=== PATIENT | female | born 1950 | race Caucasian/White ===

== ENCOUNTER 2023-09-01 15:39 | Inpatient (IN) | payer OTHER, SELFPAY ==
[2023-09-01] VITALS (18 sets, daily range): BP systolic 85–138; BP diastolic 52–70; PULSE 61–62; BMI 22.1; BMI 22.8
--- NOTE | 2023-09-01 12:27 | ED.GENMED ---
History of Present Illness
General
Chief Complaint: Breathing Problem
Source: patient and spouse
Exam Limitations: none
Time Seen by Provider: 09/01/23 12:26
Travel History
Have you had any contact with someone who has COVID-19?: No
Do you have any symptoms of coronavirus? Fever > 100 degrees, chills, cough, shortness of breath, sore throat, loss of taste or smell, muscle aches, or headache?: Yes
Symptoms:: sob
History of Present Illness
History of Present Illness:
73-year-old female shortness of breath with exertion for about a month and a half. Started in [place]. She had stopped her Lasix during the drive down restarted in [place]. Has had shortness of breath with exertion since then. Slowly progressive
in nature. No weight change no chest pain no pleuritic pain no infectious symptoms or cough. 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
Past History
Past History
ED Past Medical History: Arrthythmia, GERD and Other (anemia)
ED Past Surgical History: Appendectomy and Cardiac
Social History
Tobacco: Non-smoker
Alcohol: Daily
Personal: Single
Living: with family
Employment: Employed
Review of Systems
Review of Systems
All Other Systems: Not applicable
Constitutional: Denies fever
Respiratory: Denies cough or hemoptysis
Cardiac: Denies chest pain or syncope
Phy Exam
Physical Exam
Physical Exam:
GENERAL: Alert and oriented in no apparent distress
EYE: Orbits normal.
NECK: Supple, no thyroid palpable
CARDIAC: Regular rate and rhythm without any obvious murmurs. Pacemaker upper chest wall
LUNGS: Clear breath sounds,normal
ABDOMEN: Soft, without focal tenderness or distention
NEUROLOGICAL: Alert and oriented , grossly non-focal
SKIN: Warm and dry, no rash or lesion, no discoloration, skin intact.
MUSCULOSKELETAL: Trace pitting edema,no deformity.Good color
PSYCH: Normal and appropriate interaction.
Scores
Heart Failure Risk
Heart Failure Risk Score: Not Applicable
Course
Orders/Labs/Results
Orders:
Orders
09/01/23 Breakfast
Clear Liquid
At Your Request: Full Participation
09/01/23 11:07
Electrocardiogram (*1) Urgent
Reason for Study: Shortness of Breath
09/01/23 11:08
EKG- Treatment ONCE
09/01/23 12:38
CXR2 [CR Chest - 2 Views ] Urgent
Comment:
Reason For Exam: sob
09/01/23 12:43
Complete Blood Count/With Diff Urgent
Comprehensive Metabolic Panel Urgent
DDimer [D-Dimer] Urgent
Ferritin Urgent
Folate Urgent
Comment: IRON,FERRITIN,TIBC,B12,FOLATE ADDED ON BY FLOOR 3:10PM 09-01-23
Iron Urgent
NT-proBNP Urgent
Total Iron Binding Urgent
Troponin I Urgent
Vitamin B12 Urgent
09/01/23 13:35
* Blood Bank Products Urgent
Blood Bank Products: *Packed RBC Leuko(PRBC's)
Quantity: 1
Transfuse Today: Yes
Reason: Anemia
IV Insert/Care/Rem.- Treatment PRN
09/01/23 13:42
Potassium Chloride 10% Elixir [KCl Elixir] 40 meq PO NOW STA
09/01/23 14:00
Type+Screen Urgent
09/01/23 15:12
Add On- LAB Routine
Tests Added?: iron,ferritin,tibc, b12 and folate level
09/01/23 15:27
Admit/Transfer Patient As Directed
Co-Sign Provider:
Level of Care: Inpatient admission
Assign to:: Telemetry
Physician / Group: charles
Diagnosis: GI bleed
Reason for Telemetry: Other
Other Reason for Telemetry: anemia
Date to Stop Telemetry: 09/03/23
Time to Stop Telemetry: 11:00
Reason for Hospitalization: anemia
Expected length of stay greater than two midnights?: Yes
ELOS- Estimated Length of Stay in days: 3
I certify the patient meets the requirements for IP care: Yes
09/01/23 15:28
Code Status As Directed
Resuscitation Status: Full Code
09/01/23 17:19
GASTROINTESTINAL CONSULT Routine
Consulting Provider: Alina Mayes
Was physician already notified: Yes
Activity As Directed
Activity Level: As Tolerated
Compression Sleeves [Pneumatic Compression Sleeves] As Directed
Type: Thigh high
I&O [Intake/ Output] As Directed
Frequency: Per unit guidelines
INT (Intravenous Needle Therapy) As Directed
Comment: Place 2 IV catheters of the largest bore possible until stable
Orthostatic Vital Signs As Directed
Orthostatic VS Frequency: Now
Comment: then every four hours for twenty-four hours
Vital Signs As Directed
Frequency: Per unit guidelines
Weight As Directed
Frequency: Daily
DX Deep Vein Thrombosis Video Routine
09/01/23 17:51
Diphenhydramine [Benadryl] 25 mg PO HSPRN PRN
09/01/23 20:00
H&H Q8H
Pantoprazole [Protonix IV] 40 mg IV BID
09/01/23 22:00
Atorvastatin [Lipitor] 20 mg PO HS
Melatonin 10 mg PO HS
Metoprolol Xl [Toprol Xl] 50 mg PO HS
Potassium Chloride [KCl] 10 meq PO HS
09/02/23 04:00
H&H Q8H
09/02/23 06:00
Basic Metabolic Panel IN AM
Complete Blood Count/No Diff IN AM
09/02/23 08:00
Furosemide [Lasix] 160 mg PO DAILY
Metoprolol Xl [Toprol Xl] 75 mg PO DAILY
Potassium Chloride [KCl] 20 meq PO DAILY
Sotalol [Betapace] 120 mg PO Q24H
09/03/23 06:00
Basic Metabolic Panel IN AM
Complete Blood Count/No Diff IN AM
09/03/23 11:00
DC Protocol for Telemetry ONCE
09/04/23 06:00
Basic Metabolic Panel IN AM
Complete Blood Count/No Diff IN AM
09/05/23 06:00
Basic Metabolic Panel IN AM
Complete Blood Count/No Diff IN AM
09/06/23 06:00
Basic Metabolic Panel IN AM
Complete Blood Count/No Diff IN AM
Abnormal Lab Results
09/01/23 09/01/23
12:43 14:00
RBC 2.39 L 10^6/uL
(4.20-5.40)
Hgb 6.2 L* g/dL
(12.0-16.0)
Hct 19.9 L* %
(37.0-47.0)
MCH 25.9 L pg
(27.0-31.0)
MCHC 31.2 L g/dL
(33.0-37.0)
Absolute Monos (auto) 0.8 H 10^3/uL
(0.1-0.6)
Lymphocytes % 14.5 L %
(20.5-51.1)
Monocytes % 10.3 H %
(1.7-9.3)
Potassium 3.1 L mmol/L
(3.5-5.1)
Chloride 96 L mmol/L
(98-107)
Carbon Dioxide 31 H mmol/L
(22-30)
BUN 19 H mg/dl
(7-17)
Iron 35 L ug/dl
(37-170)
% Saturation 7 L %
(20-50)
Ferritin 9.4 L ng/ml
(11.1-264.0)
Crossmatch IS Only See Detail
09/01/23 12:43
09/01/23 12:43
Vital Signs
Initial and Last Documented VS:
Initial Vital Signs
Temp Pulse Resp BP Pulse Ox
98.2 F 64 16 117/58 90
09/01/23 11:02 09/01/23 11:02 09/01/23 11:02 09/01/23 11:02 09/01/23 11:02
Last Documented Vital Signs
Temp Pulse Resp BP Pulse Ox
97.8 F 62 16 125/55 99
09/01/23 18:34 09/01/23 18:34 09/01/23 18:34 09/01/23 18:34 09/01/23 18:32
MDM/Problems Addressed
MDM/Problems Addressed:
Large differential dyspnea on exertion. CHF. Although lungs are clear and weight has been stable. Patient increased her Lasix dose 3 to 4 days ago. Pulmonary emboli although patient is on Eliquis and faithful which makes this unlikely. Anginal
equivalent always possible. Underlying lung issue possible also. No infectious symptoms however. Workup in progress
*Radiology
Radiology exam reviewed: preliminary read by ED provider (Negative) and radiology read reviewed (Negative)
*Pulse Oximetry
Patient hypoxic: no
*EKG
Interpreted by ED Provider?: Yes
Interpretation: abnormal
Comparison EKG: no changes
Heart Rate: 60
Rate: normal
Rhythm: other (AV dual pacing)
*Counter Tender Interpretation
Rate: normal
Interpretation: normal
Heart Rate: 62
Rhythm: other (AV sequential)
*Critical Care Note
Total Time (30-74mins, 75-104mins- exclusive of procedures): Not Applicable
Data Reviewed
Review of Other/Old Records Reveals: Labs, Records, Radiology Studies and Testing
Update Note
Update Note:
Patient's rectal exam is brown but has trace positive. Severe symptomatic anemia. Consent signed. Risks benefits of blood explained. Referred to hospitalist.
ED Attending Note
-
Portions of this chart may have been created with voice recognition software.� Occasional wrong word or��sound alike� substitutions may have occurred due to the inherent limitations of voice recognition software.
Discharge Plan
Departure
Patient Disposition: Admit
Date of Disposition: 09/01/23
Time of Disposition: 13:37
Presentation/result/management discussed w/ accepting MD/DO: Hospitalist
Discharge Problem:
Severe symptomatic anemia, Occult GI bleed he, Hypokalemia
Interventions
Interventions:
*Risk Screen - Suicide Last Done: 09/01/23 12:16
*General Assessment Last Done: 09/01/23 12:16
*Neglect/Abuse Screening Last Done: 09/01/23 12:16
ED- Fall Risk Assessment Last Done: 09/01/23 12:16
*ED COVID-19 Vaccine History Last Done: 09/01/23 11:02
*Nursing Disposition Last Done: 09/01/23 17:30
ED- Cardiac Assessment Last Done: 09/01/23 12:16
ED- Pulmonary Assessment Last Done: 09/01/23 12:16
Discharge Date and Time
Discharge Date/Time: 09/01/23 17:31
[2023-09-01 12:59] LABS: % Basophils 0.7 % (0-2); % Eosinophils 2.1 % (0-6); % Immature Granulocytes 0.4 % (0-0.5); % Lymphocytes 14.5 % (20.5-51.1); % Monocytes 10.3 % (1.7-9.3); Absolute Basophils 0.1 10^3/uL (0-0.2); Absolute Eosinophils 0.2 10^3/uL (0-0.7); Absolute Lymphocytes 1.2 10^3/uL (1.2-3.4); Absolute Monocytes 0.8 10^3/uL (0.1-0.6); Absolute Neutrophils 5.8 10^3/uL (1.4-6.5); Mean Corp Hgb Conc. 31.2 g/dL (33.0-37.0); Mean Corpuscular Hgb 25.9 pg (27.0-31.0); Mean Corpuscular Volume 83.3 fL (81.0-99.0); Mean Platelet Volume 9.4 fL (7.4-10.4); Nucleated Red Blood Cells % 0 %; Platelet Count 257 10^3/uL (130-400); Red Blood Cell Count 2.39 10^6/uL (4.20-5.40); Red Cell Dist. Width 13.8 % (11.5-14.5); White Blood Cell Count 8.1 10^3/uL (4.8-10.8)
[2023-09-01 13:06] LABS: Hematocrit 19.9 % (37.0-47.0); Hemoglobin 6.2 g/dL (12.0-16.0)
[2023-09-01 13:15] LABS: ALT (SGPT) 15 U/L (0-35); AST (SGOT) 26 U/L (14-36); Alkaline Phosphatase 79 U/L (38-126); Blood Urea Nitrogen 19 mg/dl (7-17); Calcium 9.4 mg/dl (8.4-10.2); Carbon Dioxide 31 mmol/L (22-30); Chloride 96 mmol/L (98-107); Estimated Creatinine Clearance 50 ml/min; Glucose 92 mg/dl (70-99); Potassium 3.1 mmol/L (3.5-5.1); Sodium 137 mmol/L (135-145); Total Bilirubin 0.5 mg/dl (0.2-1.3); Total Protein 6.9 g/dl (6.3-8.2); eGFR > 60.00
[2023-09-01 13:19] LABS: D-Dimer < 0.27 ug/mlFEU (0.00-0.50)
[2023-09-01 13:25] LABS: NT-proBNP 2510 pg/ml; Troponin I < 0.012 ng/ml
[2023-09-01] MEDS: KCL ELIXIR 40 MEQ PO (13:58)
--- NOTE | 2023-09-01 14:45 | HPS.HSE ---
Family Physician
-
Family Physician: Luly Mckeon
Chief Complaint
-
sob
History of Present Illness
73-year-old female with PMH for CHF, sick sinus syndrome, paroxysmal A-fib, iron deficiency anemia, hyperlipidemia, asthma, COPD presented to us with progressively short of breath for the past few months. Patient stopped taking Lasix few days last
week as she was traveling to [place]. For the past 1 week, her short of breath got worse. She reports worse with activity. Patient denies any chest pain. Denies weight gain. Denied lower extremity edema. Patient denies any runny nose,
congestion, cough. Patient denies any headache, dizziness, syncopal episode patient denies any abdominal pain, nausea, vomiting, diarrhea. . Patient denies any hematemesis, black stool or bloody stool. Denies dysuria, hematuria. Patient had
colonoscopy and EGD within the last year. Patient could not get an appointment with shuttle hand but recommended taking 160 of Lasix instead of 120.
Noted hemoglobin of 6.2. Admitting for further management
Medical History
Past Medical History
Past Medical History: Reports Other
Additional Past Medical History:
Pulmonary hypertension
Sick sinus syndrome
Chronic diastolic heart failure
Paroxysmal A-fib
Iron deficiency anemia
Hyperlipidemia
COPD asthma
History of melanoma
Past Surgical History: Reports Other
Additional Past Surgical History:
Mohs surgery on forehead
Hiatal hernia surgery
Appendectomy
Social History
Tobacco: Non-smoker
Alcohol: Daily (1 glass of wine daily)
Drug: None
Personal:
Living: With Family
Family History
Family History: Not pertinent
Allergies / Home Medications
Allergies reflects when Allergies were last updated in [facility].
Home Medications with original date entered in [facility]
Allergy/Medication List:
Allergies
Allergy/AdvReac Type Severity Reaction Status Date / Time
naproxen [Naproxen] Allergy 'heart Verified 03/18/16 07:55
beats
faster'
NSAIDS (Non-Steroidal Allergy Unknown Verified 03/18/16 07:55
Anti-Inflamma
Home Medications
pantoprazole 40 mg tablet,delayed release 40 mg PO DAILY Gastrointestinal issue 02/24/11
cod liver oil 1 cap PO DAILY PRN supplement 06/12/12
atorvastatin 20 mg tablet 20 mg PO HS High cholesterol 10/09/14
sotalol 120 mg tablet 120 mg PO Q12H arrhythmia #60 tabs 02/23/22
Benefiber (guar gum) 2 cap PO BID 09/01/23
apixaban 5 mg tablet (Eliquis) 5 mg PO BID 09/01/23
ascorbic acid (vitamin C) 500 mg chewable tablet (Vitamin C) 500 mg PO DAILY PRN supplement 09/01/23
diphenhydramine 25 mg-acetaminophen 500 mg tablet (Tylenol PM Extra Strength) 1 tab PO HS PRN sleep 09/01/23
furosemide 80 mg tablet 160 mg PO DAILY 09/01/23
melatonin 10 mg chewable tablet 10 mg PO HS 09/01/23
metoprolol succinate 50 mg tablet,extended release 24 hr 50 mg PO HS 09/01/23
metoprolol succinate 50 mg tablet,extended release 24 hr 75 mg PO DAILY 09/01/23
potassium chloride 20 mEq tablet,extended release(part/cryst) 10 meq PO HS 09/01/23
potassium chloride 20 mEq tablet,extended release(part/cryst) 20 meq PO DAILY 09/01/23
vitamin E (dl, acetate) 180 mg (400 unit) capsule 180 mg PO DAILY PRN supplement 09/01/23
Review of Systems
-
Constitutional: Reports No Symptoms
EENT: Reports No Symptoms
Respiratory: Reports Trouble Breathing
Cardiac: Reports No Symptoms
Abdomen/GI: Reports No Symptoms
: Reports No Symptoms
Musculoskeletal: Reports No Symptoms
Skin: Reports No Symptoms
Neurological: Reports No Symptoms
Endocrine: Reports No Symptoms
Hematologic/Lymphatic: Reports No Symptoms
Psych: Reports No Symptoms
Physical Exam
Vital Signs
Vital Signs
Temp Pulse Resp BP Pulse Ox
98.2 F 61 15 137/66 98
09/01/23 11:02 09/01/23 14:30 09/01/23 14:30 09/01/23 14:00 09/01/23 14:30
Physical Exam
General: Well Developed, Well Nourished and No Apparent Distress
HEENT: NormoCephalic, Moist mucous membranes and Atraumatic
Respiratory: Clear
Cardiac: S1/S2 and Regular Rhythm; No Murmur or Rub
GI: Soft, Non Tender, Non Distended and Normal Bowel Sounds; No Organomegaly
Rectal: Deferred by Provider
Musculoskeletal: No Clubbing, No Cyanosis and No Edema
Skin: No Rash
Neuro: AO x 3 and Nonfocal/grossly intact
Psych: Calm
Laboratory Results
-
09/01/23 12:43
09/01/23 12:43
Laboratory Results
Total Bilirubin 0.5 mg/dl (0.2-1.3) 09/01/23 12:43
AST 26 U/L (14-36) 09/01/23 12:43
ALT 15 U/L (0-35) 09/01/23 12:43
Alkaline Phosphatase 79 U/L (38-126) 09/01/23 12:43
Troponin I < 0.012 ng/ml 09/01/23 12:43
Data Reviewed
-
Diagnostic Radiology: Report Reviewed by me
Lab Data: Labs Reviewed by me
Impression/Plan
-
# Short of breath likely from acute blood loss anemia from GI bleed
-Hemoglobin 6.2
-In ER rectal exam is brown but has trace positive
-ordered one unit of blood
-Trend hemoglobin
-Clear liquid diet
-GI consult
# Hypokalemia likely from diuretics
-K3.1
-IV KCl in ER
-Continue to monitor BMP
# History of paroxysmal A-fib
-EKG with impression of paced rhythm
-Hold Eliquis
-Metoprolol continued
-Sotalol continued
# Hyperlipidemia
-Statin continued
# History of congestive heart failure
-Will continue Lasix 160
-Strict KIEL
-Daily weight
# DVT prophylaxis
-SCDs
# CODE STATUS
-Full code
--- NOTE | 2023-09-01 15:13 | W.PN.UPDATE ---
Update Note
Progress Note Update
I saw and examined the patient.
The BUFFING AND POLISHING WHEEL REPAIRER's note was reviewed and I agree with the note.
This note serves as an addendum to [facility] H&P
73 yo female on Eliquis presenting with shortness of breath. Patient recently stopped taking Lasix while driving to [place]. Patient Cardiology and upon return back to [place] her Lasix dose was increased to 60 mg. Patient denies hematuria or
blood in stool.
General no acute distress, pale
Cardiac S1-S2 regular rate rhythm
Pulmonary lungs are clear to auscultation bilaterally
Abdomen positive bowel sounds soft nontender
Extremities no edema
Comment:
#Symptomatic anemia likely secondary suspected GI bleed (upper versus lower) possibly worsening due to Eliquis
#History of GI bleed
GERD Status post laparoscopic paraesophageal hernia repair with Mary fundoplication
In ER rectal exam Brown stool trace positive
PPI twice daily
Clears
Start gentle IV fluids after blood cell transfusion
Trend H&H
2 large-bore IVs at all time
Check anemia panel
Gastroenterology evaluation
#Hypokalemia
Replete/monitor
#Paroxysmal atrial fibrillation status post PVI
#Sick sinus syndrome status post pacemaker implantation
Holding Eliquis
Continue with metoprolol and sotalol
Monitor on telemetry
#History of stroke
Currently on Eliquis which needs to be held in the setting of symptomatic anemia and concern for gastrointestinal bleeding
#Moderate pulmonary hypertension
Monitor oxygenation status closely
Continue with diuretics if blood pressure can tolerate it
HLD
Holding statin
DVT prophylaxis SCDs in the setting of GI bleed
Discussed case with patient's spouse and brother at bedside in detail
I spent a total of 78 minutes with the patient or on the floor. More than 50% of this time involved counseling and coordination of care.
[2023-09-01 15:54] LABS: Iron 35 ug/dl (37-170)
[2023-09-01 16:04] LABS: Percent Saturation 7 % (20-50); Total Iron Binding Capacity 481 ug/dl (265-497)
--- NOTE | 2023-09-01 16:11 | CON.GI ---
Addendum entered and electronically signed by Alina Mayes MD 09/01/23 18:30:
I saw and examined the patient.
The DECK ENGINEER or PA's note was reviewed and I agree with the note.
Comment:
Pt is a 73 y/o with afib on eliquis, hiatal hernia with PUD and fundoplication admitted with SOB and anemia which is iron def. No overt bleeding
abd: soft, nontender
impression:
iron def anemia
hx of PUD/fundoplication
plan:
transfuse
EGD and colonoscopy when stable. will need to be off eliquis for this.
Can be done as an outpatient or inpatient if overt bleeding or hgb does not appropriately bump
follow hgb
PPI
Original Note:
Consultation
-
Date/Time Consultation Requested: 09/01/23 1527
Date/Time Consultation Performed: 09/01/23 1620
Requesting Provider: ADRIAN Pedraza
Performing Provider: Dr. Alina Mayes / Shilpa Sanz PA-C
Reason for Consultation: anemia
Medical History
Chief Complaint / HPI
Chief Complaint: anemia
History of Present Illness:
This is a 73 year old female with a past medical history of CHF, sick sinus syndrome (s/p pacemaker 2015), paroxysmal A-fib (on Eliquis), CVA (2012, no residual deficits), iron deficiency anemia, hyperlipidemia, COPD, pulmonary HTN, GERD, PUD,
history of recurrent GI bleeding for multiple years due to Roger lesions/large hiatal hernia on chronic anticoagulation who underwent paraesophageal hernia repair with Mary fundoplication with Dr. Venegas in 2012. She is well-known to our GI
practice and is currently followed by Dr. Cici Escamilla. She had been on Coumadin for years but was switched to Eliquis in June 2023. She noticed increasing dyspnea over the past few months. She presented to the ER with a hemoglobin of 6.2. Her
baseline hemoglobin had previously been in the 12's in 2021 on review of labs. Prior endoscopies, colonoscopies reviewed going back to 2007 with prior nonhealing gastric ulcer, hiatal hernia and Roger lesions as well as colon polyps (sessile
serrated), colonic angioectasias in the ascending colon and hemorrhoids. Her most recent endoscopy in March [address] Escamilla showed multiple gastric antral erosions with evidence of loose Mary fundoplication. Biopsies showed mild gastritis,
negative for H pylori. Her PPI dose was increased to pantoprazole 40mg (from 20mg) and patient is compliant with taking it regularly. She is overdue for surveillance colonoscopy as her last was done in 2018. She denies melena or hematochezia. She
states bowel movements are regular, no diarrhea or constipation. She denies a family history of colon cancer or any GI malignancies. She does not smoke and avoids NSAIDs but does admit to drinking 2-4 glasses of wine every night and has done so for
years. Heartburn, reflux are well-controlled on PPI therapy. No unintentional weight loss. Labs reviewed: WBC 8.1, Hgb 6.2, MCV 83.3, platelets 257, PT 22.8, INR 2.04, serum iron 35, TIBC 481, %sat 7, ferritin 9.4. Vitamin B12 and folate are
pending.
Past Medical History
Past Medical History: Other (CHF, sick sinus syndrome (s/p pacemaker 2015), paroxysmal A-fib (on Eliquis), CVA (2012, no residual deficits), iron deficiency anemia, hyperlipidemia, COPD, pulmonary HTN, GERD, PUD, history of recurrent GI bleeding)
Past Surgical History: Appendectomy and Other (Moh's, pacemaker 08/04/2015 done for syncope, ablation for atrial fibrillation, Tonsillectomy, [place], Laparoscopic Mary fundoplication hiatal hernia repair 2012 - Dr. Venegas)
Social History
Tobacco: Non-Smoker
Alcohol: Daily (2-4 glasses of wine daily)
Drug: None
Personal:
Living: With Family
Family History
Family History: Other (No family history of GI malignancies)
Allergies / Home Medications
Allergy/AdvReac Type Severity Reaction Status Date / Time
naproxen [Naproxen] Allergy 'heart Verified 03/18/16 07:55
beats
faster'
NSAIDS (Non-Steroidal Allergy Unknown Verified 03/18/16 07:55
Anti-Inflamma
�Medication �Instructions �Recorded
pantoprazole 40 mg tablet,delayed 40 mg PO DAILY Gastrointestinal 02/24/11
release issue
cod liver oil 1 cap PO DAILY PRN supplement 06/12/12
atorvastatin 20 mg tablet 20 mg PO HS High cholesterol 10/09/14
sotalol 120 mg tablet 120 mg PO Q12H arrhythmia #60 tabs 02/23/22
Benefiber (guar gum) 2 cap PO BID 09/01/23
apixaban 5 mg tablet (Eliquis) 5 mg PO BID 09/01/23
ascorbic acid (vitamin C) 500 mg 500 mg PO DAILY PRN supplement 09/01/23
chewable tablet (Vitamin C)
diphenhydramine 25 1 tab PO HS PRN sleep 09/01/23
mg-acetaminophen 500 mg tablet
(Tylenol PM Extra Strength)
furosemide 80 mg tablet 160 mg PO DAILY 09/01/23
melatonin 10 mg chewable tablet 10 mg PO HS 09/01/23
metoprolol succinate 50 mg 50 mg PO HS 09/01/23
tablet,extended release 24 hr
metoprolol succinate 50 mg 75 mg PO DAILY 09/01/23
tablet,extended release 24 hr
potassium chloride 20 mEq 10 meq PO HS 09/01/23
tablet,extended release(part/cryst)
potassium chloride 20 mEq 20 meq PO DAILY 09/01/23
tablet,extended release(part/cryst)
vitamin E (dl, acetate) 180 mg 180 mg PO DAILY PRN supplement 09/01/23
(400 unit) capsule
Review of Systems
-
History Source: Patient
All other systems: A 12 pt ROS was Negative except as stated above in HPI
Vital Signs
Temp Pulse Resp BP Pulse Ox
97.9 F 60 16 123/59 100
09/01/23 16:02 09/01/23 16:02 09/01/23 16:02 09/01/23 16:02 09/01/23 16:02
Physical Exam
Exam
General: Well Developed, Well Nourished and No Apparent Distress
Respiratory: Clear
Cardiac: Regular Rhythm
GI: Soft, Non Tender, Non Distended and Normal Bowel Sounds
Rectal: Brown, Hem Positive and Other (ER exam documenated brown stool, trace positive hemoccult)
Skin: Warm and Dry
Neuro: AO x 3
Psych: Calm
Results
WBC 8.1 10^3/uL (4.8-10.8) 09/01/23 12:43
Hgb 6.2 g/dL (12.0-16.0) L* 09/01/23 12:43
Hct 19.9 % (37.0-47.0) L* 09/01/23 12:43
MCV 83.3 fL (81.0-99.0) 09/01/23 12:43
Plt Count 257 10^3/uL (130-400) 09/01/23 12:43
Absolute Neuts (auto) 5.8 10^3/uL (1.4-6.5) 09/01/23 12:43
Sodium 137 mmol/L (135-145) 09/01/23 12:43
Potassium 3.1 mmol/L (3.5-5.1) L 09/01/23 12:43
Chloride 96 mmol/L (98-107) L 09/01/23 12:43
Carbon Dioxide 31 mmol/L (22-30) H 09/01/23 12:43
BUN 19 mg/dl (7-17) H 09/01/23 12:43
Creatinine 0.8 mg/dL (0.6-1.0) 09/01/23 12:43
Calcium 9.4 mg/dl (8.4-10.2) 09/01/23 12:43
Total Bilirubin 0.5 mg/dl (0.2-1.3) 09/01/23 12:43
AST 26 U/L (14-36) 09/01/23 12:43
ALT 15 U/L (0-35) 09/01/23 12:43
Alkaline Phosphatase 79 U/L (38-126) 09/01/23 12:43
Diagnostic Image Results:
Chest x-ray, 09/01/2023:
1. Clear lungs.
2. No significant change compared to prior study.
Prior GI Procedures:
EGD:
Endoscopy 04/04/23, Dr. Escamilla:
Impression: - Z-line irregular,. This was biopsied to look for
Jackson's esophagus.
- Hiatus hernia.
- Erosive gastropathy.
- Gastric mucosal abnormality characterized by erythema.
This was biopsied H pylori bacteria.
- Normal examined duodenum.
- Normal 3rd part of the duodenum. This was biopsied to
look for celiac disease.
Indication: heartburn
Findings: gastropathy, tortuous esophagus, loose Mary fundoplication, few small gastric antral erosions in antrum, atrophic appearing stomach, neg for Hpylori and celiac.
Colonoscopy:
Colonoscopy 09/28/2017, Dr. Garcia:
Impression: - Diverticulosis in the descending colon and in the
transverse colon.
- Moderate diverticulosis in the sigmoid colon. There
was evidence of diverticular spasm.
- Non-bleeding external hemorrhoids.
- No specimens collected.
Recommendation: - Consider adding a fiber supplement such as Citrucel 2
Caps. 2 times per day with 8 oz of fluid, or Benifiber
one dose daily. Or Citrucel Powder one heaping
tablespoon full daily mixed in 8 oz water or juice.
- Return to primary care physician as previously
scheduled.
- Return to my office in 6 months.
- Repeat colonoscopy in 5 years for surveillance.
Assessment / Plan
-
This is a 73 year old female with a past medical history of CHF, sick sinus syndrome (s/p pacemaker 2015), paroxysmal A-fib (on Eliquis), CVA (2012, no residual deficits), iron deficiency anemia, hyperlipidemia, COPD, pulmonary HTN, GERD, PUD,
history of recurrent GI bleeding for multiple years due to Roger lesions/large hiatal hernia on chronic anticoagulation who underwent paraesophageal hernia repair with Mary fundoplication with Dr. Venegas in 2012. She is well-known to our GI
practice and is currently followed by Dr. Cici Escamilla. She had been on Coumadin for years but was switched to Eliquis in June 2023. She noticed increasing dyspnea over the past few months. She presented to the ER with a hemoglobin of 6.2. Her
baseline hemoglobin had previously been in the 12's in 2021 on review of labs. Prior endoscopies, colonoscopies reviewed going back to 2007 with prior nonhealing gastric ulcer, hiatal hernia and Roger lesions as well as colon polyps (sessile
serrated), colonic angioectasias in the ascending colon and hemorrhoids. Her most recent endoscopy in March [address] Escamilla showed multiple gastric antral erosions with evidence of loose Mary fundoplication. Biopsies showed mild gastritis,
negative for H pylori. Her PPI dose was increased to pantoprazole 40mg (from 20mg) and patient is compliant with taking it regularly. She is overdue for surveillance colonoscopy as her last was done in 2018. She denies melena or hematochezia. She
states bowel movements are regular, no diarrhea or constipation. She denies a family history of colon cancer or any GI malignancies. She does not smoke and avoids NSAIDs but does admit to drinking 2-4 glasses of wine every night and has done so for
years. Heartburn, reflux are well-controlled on PPI therapy. No unintentional weight loss. Labs reviewed: WBC 8.1, Hgb 6.2, MCV 83.3, platelets 257, PT 22.8, INR 2.04, serum iron 35, TIBC 481, %sat 7, ferritin 9.4. Vitamin B12 and folate are
pending.
IMPRESSION / PLAN:
Anemia, severe with history of recurrent GI bleeding from Roger lesions/hiatal hernia/nonhealing gastric ulcer, on anticoagulation
-patient is s/p paraesophageal hernia repair w Mary fundoplication [place] [address] Venegas
-Hgb 6.2
-pt is currently transfusing 1 unit PRBCs in the ER
-has remained hemodynamically stable
-continue clear liquid diet
-continue to trend hemoglobin, transfuse if falls below 7
-Eliquis on hold, last dose was this morning, 08/31
-Plan for endoscopic procedures - EGD and colonoscopy - after Eliquis washout, however patient wishes to leave -- to discuss timing further with Dr. Mayes, as well as possible outpatient procedures
Colon polyps, overdue for surveillance colonoscopy
Other medical issues managed as per hospitalist.
-
-
Thank you for consultation and allowing me to participate in the patient's care. Please call the box person GI physician during the after hours with any questions or concerns.
[2023-09-01 16:48] LABS: Ferritin 9.4 ng/ml (11.1-264.0)
--- NOTE | 2023-09-01 18:30 | W.PN.UPDATE ---
Update Note
Progress Note Update
for billing purposes only
--- NOTE | 2023-09-01 18:50 | PTCARENOTE ---
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 Patient states that she frequently drinks more than 4 drinks in one day but she is unsure how many times in the past 6 months.
[2023-09-01 19:03] LABS: Folate > 20.0 ng/ml (2.76-20); Vitamin B12 > 1000 pg/ml (239-931)
[2023-09-01 20:01] LABS: Hematocrit 24.9 % (37.0-47.0)
[2023-09-01 20:08] LABS: Hemoglobin 7.9 g/dL (12.0-16.0)
[2023-09-01] MEDS: PROTONIX IV 40 MG IV (22:01)
[2023-09-01] MEDS: KCL 10 MEQ PO (22:01)
[2023-09-01] MEDS: LIPITOR 20 MG PO (22:02)
[2023-09-01] MEDS: TOPROL XL 50 MG PO (22:02)
[2023-09-01] MEDS: NSS (PRESERVATIVE FREE) 10 ML IV (22:02)
[2023-09-01] MEDS: MELATONIN 10 MG PO (22:03)
[2023-09-01] MEDS: BENADRYL 25 MG PO (22:18)
[2023-09-01] MEDS: TYLENOL 500 MG PO (22:18)
[2023-09-02] VITALS (8 sets, daily range): BP systolic 88–124; BP diastolic 40–63; PULSE 60–62; BMI 22.9
[2023-09-02] MEDS: BETAPACE PO (00:22)
[2023-09-02 08:46] LABS: Hematocrit 22.1 % (37.0-47.0); Mean Corp Hgb Conc. 31.7 g/dL (33.0-37.0); Mean Corpuscular Hgb 26.8 pg (27.0-31.0); Mean Corpuscular Volume 84.7 fL (81.0-99.0); Mean Platelet Volume 9.4 fL (7.4-10.4); Platelet Count 216 10^3/uL (130-400); Red Blood Cell Count 2.61 10^6/uL (4.20-5.40); Red Cell Dist. Width 14.3 % (11.5-14.5); White Blood Cell Count 5.3 10^3/uL (4.8-10.8)
[2023-09-02 09:04] LABS: Blood Urea Nitrogen 16 mg/dl (7-17); Calcium 8.9 mg/dl (8.4-10.2); Carbon Dioxide 29 mmol/L (22-30); Chloride 99 mmol/L (98-107); Estimated Creatinine Clearance 50 ml/min; Glucose 85 mg/dl (70-99); Potassium 3.5 mmol/L (3.5-5.1); Sodium 132 mmol/L (135-145); eGFR > 60.00
[2023-09-02] MEDS: BETAPACE 120 MG PO ×2 (09:40→21:01)
[2023-09-02] MEDS: KCL 20 MEQ PO (09:42)
[2023-09-02] MEDS: TOPROL XL 50 MG PO ×2 (09:42→21:03)
[2023-09-02] MEDS: LASIX 160 MG PO (09:42)
[2023-09-02] MEDS: NSS (PRESERVATIVE FREE) 10 ML IV ×2 (09:43→21:03)
[2023-09-02] MEDS: PROTONIX IV 40 MG IV ×2 (09:43→21:04)
[2023-09-02] MEDS: TOPROL XL 75 MG PO (09:44)
--- NOTE | 2023-09-02 11:19 | W.PN.HOSP.TC ---
Today's Communication/Plan
-
Regular diet today
Clears tomorrow
Procedure Monday
Transfuse PRBC
Cardiology
Assessment / Plan
Assessment / Plan
#Symptomatic anemia likely secondary suspected GI bleed (upper versus lower) possibly worsening due to Eliquis and KARISSA
#History of GI bleed
GERD Status post laparoscopic paraesophageal hernia repair with Mary fundoplication
In ER rectal exam Brown stool trace positive
PPI twice daily
Hgb of 7 and will transfuse 1u PRBC now.
Started on IV iron too.
Trend H&H
2 large-bore IVs at all time
low iron stores
Plan will be for endoscopy and colonoscopy on Monday. Patient agreed and did stay would like to avoid holding Eliquis till Monday as high risk. Discussed with gastroenterology.
Gastroenterology evaluation
#Hypokalemia
Replete/monitor
#Paroxysmal atrial fibrillation status post PVI
#Sick sinus syndrome status post pacemaker implantation
Holding Eliquis till Monday for procedures
Continue with metoprolol and sotalol
Monitor on telemetry
#History of stroke
Currently on Eliquis which needs to be held in the setting of symptomatic anemia and concern for gastrointestinal bleeding
#Moderate pulmonary hypertension
Monitor oxygenation status closely
Continue with diuretics if blood pressure can tolerate it
Home dose of 120mg lasix (was increase to 160mg due to SOB which seems due to symptoamtic anemia)
HLD
Cont statin
DVT prophylaxis SCDs in the setting of GI bleed
Anticipated Discharge: > 48 hours
Subjective/Interval History
-
Date of Service: September 02, 2023
denies any blood in urine or stools
Hgb downtrended to 7 from overnight
Objective Data
-
Labs:
Laboratory Results
09/02/23 09/02/23
04:00 08:21
WBC 5.3
Hgb Cancelled 7.0 L
Hct Cancelled 22.1 L
Plt Count 216
Sodium 132 L
Potassium 3.5
Chloride 99
Carbon Dioxide 29
BUN 16
Creatinine 0.8
Glucose 85
Calcium 8.9
Vital Signs:
Vital Signs
Temp Pulse Resp BP Pulse Ox
98.0 F 61 16 105/51 98
09/02/23 07:30 09/02/23 07:30 09/02/23 07:30 09/02/23 09:44 09/02/23 07:30
I&O
09/01/23 09/02/23 09/03/23
06:59 06:59 06:59
Intake Total 970 / 970
Balance 970 / 970
Physical Exam
-
General: Well Developed and No Apparent Distress
HEENT: Normocephalic, Atraumatic and Moist Mucous Membranes
Respiratory: Clear to Auscultation
Cardiac: Regular Rhythm and S1/S2; Negative Murmur, Rub or Gallop
GI: Soft, Nontender, Nondistended and Normal Bowel Sounds; Negative Organomegaly
Rectal: Deferred by Provider
Musculoskeletal: No Clubbing, No Cyanosis and No Edema
Skin: Negative Rash
Neuro: Awake, AO x 3, No Motor Deficits and Nonfocal/Grossly Intact
Psych: Calm
Data Reviewed
-
Total Time Spent with Patient (in minutes): 62
--- NOTE | 2023-09-02 11:43 | W.PN.GI.CBS2 ---
Today's Communication / Plan
-
egd/colonoscopy monday
Assessment / Plan
-
This is a 73 year old female with a past medical history of CHF, sick sinus syndrome (s/p pacemaker 2015), paroxysmal A-fib (on Eliquis), CVA (2012, no residual deficits), iron deficiency anemia, hyperlipidemia, COPD, pulmonary HTN, GERD, PUD,
history of recurrent GI bleeding for multiple years due to Roger lesions/large hiatal hernia on chronic anticoagulation who underwent paraesophageal hernia repair with Mary fundoplication with Dr. Venegas in 2012. She is well-known to our GI
practice and is currently followed by Dr. Cici Escamilla. She had been on Coumadin for years but was switched to Eliquis in June 2023. She noticed increasing dyspnea over the past few months. She presented to the ER with a hemoglobin of 6.2. Her
baseline hemoglobin had previously been in the 12's in 2021 on review of labs. Prior endoscopies, colonoscopies reviewed going back to 2007 with prior nonhealing gastric ulcer, hiatal hernia and Roger lesions as well as colon polyps (sessile
serrated), colonic angioectasias in the ascending colon and hemorrhoids. Her most recent endoscopy in March [address] Escamilla showed multiple gastric antral erosions with evidence of loose Mary fundoplication. Biopsies showed mild gastritis,
negative for H pylori. Her PPI dose was increased to pantoprazole 40mg (from 20mg) and patient is compliant with taking it regularly. She is overdue for surveillance colonoscopy as her last was done in 2018. She denies melena or hematochezia. She
states bowel movements are regular, no diarrhea or constipation. She denies a family history of colon cancer or any GI malignancies. She does not smoke and avoids NSAIDs but does admit to drinking 2-4 glasses of wine every night and has done so for
years. Heartburn, reflux are well-controlled on PPI therapy. No unintentional weight loss. Labs reviewed: WBC 8.1, Hgb 6.2, MCV 83.3, platelets 257, PT 22.8, INR 2.04, serum iron 35, TIBC 481, %sat 7, ferritin 9.4. Vitamin B12 and folate are
pending.
IMPRESSION / PLAN:
new iron def anemia. Hx of PUD, hiatal hernia/fundoplicaton, colon polyps
1. clear liquids tomorrow
2. prep for egd/colonoscopy monday
3. holding eliquis until then
4. capsule endo as outpatient if studies negative
Other medical issues managed as per hospitalist.
Subjective
Subjective
Date of Service: September 02, 2023
Pt with no bleeding overnight. not sob
Objective
Data Reviewed
Laboratory Data:
Laboratory Results
09/02/23 08:21
09/02/23 08:21
Laboratory Results
Total Bilirubin 0.5 mg/dl (0.2-1.3) 09/01/23 12:43
AST 26 U/L (14-36) 09/01/23 12:43
ALT 15 U/L (0-35) 09/01/23 12:43
Alkaline Phosphatase 79 U/L (38-126) 09/01/23 12:43
Vital Signs and I&O:
Vital Signs
Temp Pulse Resp BP Pulse Ox
98.1 F 62 14 105/51 100
09/02/23 11:00 09/02/23 11:00 09/02/23 11:00 09/02/23 09:44 09/02/23 11:00
I&O
09/01/23 09/02/23 09/03/23
06:59 06:59 06:59
Intake Total 970 / 970
Balance 970 / 970
Physical Exam
Physical Exam
GI: Soft, Non Distended and Non Tender
[2023-09-02] MEDS: FERRLECIT 110 MG IV (14:49)
--- NOTE | 2023-09-02 14:52 | CM ---
Spoke with pt at bedside
Lives with SO in 1 story town home
Independent - adl's, meal prep, shopping
Denies DME in home
Denies Past SNF/HH
PCP - Dr Luly Yeh
Pharm - [facility]
Has ride at d/c
Plan - anticipate home no needs
[2023-09-02] MEDS: MELATONIN 10 MG PO (21:00)
[2023-09-02] MEDS: LIPITOR 20 MG PO (21:00)
[2023-09-02] MEDS: BENADRYL 25 MG PO (21:00)
[2023-09-02] MEDS: TYLENOL 500 MG PO (21:02)
[2023-09-02] MEDS: KCL 10 MEQ PO (21:03)
[2023-09-03 03:21] VITALS: BP 103/51
[2023-09-03 06:00] VITALS: BMI 22.9
[2023-09-03 07:30] VITALS: BP 109/75
[2023-09-03 08:24] LABS: Hematocrit 28.4 % (37.0-47.0); Mean Corpuscular Hgb 27.2 pg (27.0-31.0); Mean Platelet Volume 9.6 fL (7.4-10.4); Platelet Count 245 10^3/uL (130-400); Red Blood Cell Count 3.34 10^6/uL (4.20-5.40); Red Cell Dist. Width 14.3 % (11.5-14.5); White Blood Cell Count 6.2 10^3/uL (4.8-10.8)
[2023-09-03 08:26] LABS: Blood Urea Nitrogen 19 mg/dl (7-17); Calcium 9.1 mg/dl (8.4-10.2); Carbon Dioxide 29 mmol/L (22-30); Chloride 101 mmol/L (98-107); Estimated Creatinine Clearance 50 ml/min; Glucose 82 mg/dl (70-99); Potassium 3.9 mmol/L (3.5-5.1); Sodium 137 mmol/L (135-145); eGFR > 60.00
[2023-09-03 08:34] LABS: Hemoglobin 9.1 g/dL (12.0-16.0)
[2023-09-03] MEDS: BETAPACE 120 MG PO ×2 (09:11→20:27)
--- NOTE | 2023-09-03 09:11 | W.PN.GI.CBS2 ---
Today's Communication / Plan
-
EGD/colonoscopy tomorrow
Assessment / Plan
-
This is a 73 year old female with a past medical history of CHF, sick sinus syndrome (s/p pacemaker 2015), paroxysmal A-fib (on Eliquis), CVA (2012, no residual deficits), iron deficiency anemia, hyperlipidemia, COPD, pulmonary HTN, GERD, PUD,
history of recurrent GI bleeding for multiple years due to Roger lesions/large hiatal hernia on chronic anticoagulation who underwent paraesophageal hernia repair with Mary fundoplication with Dr. Venegas in 2012. She is well-known to our GI
practice and is currently followed by Dr. Cici Escamilla. She had been on Coumadin for years but was switched to Eliquis in June 2023. She noticed increasing dyspnea over the past few months. She presented to the ER with a hemoglobin of 6.2. Her
baseline hemoglobin had previously been in the 12's in 2021 on review of labs. Prior endoscopies, colonoscopies reviewed going back to 2007 with prior nonhealing gastric ulcer, hiatal hernia and Roger lesions as well as colon polyps (sessile
serrated), colonic angioectasias in the ascending colon and hemorrhoids. Her most recent endoscopy in March [address] Escamilla showed multiple gastric antral erosions with evidence of loose Mary fundoplication. Biopsies showed mild gastritis,
negative for H pylori. Her PPI dose was increased to pantoprazole 40mg (from 20mg) and patient is compliant with taking it regularly. She is overdue for surveillance colonoscopy as her last was done in 2018. She denies melena or hematochezia. She
states bowel movements are regular, no diarrhea or constipation. She denies a family history of colon cancer or any GI malignancies. She does not smoke and avoids NSAIDs but does admit to drinking 2-4 glasses of wine every night and has done so for
years. Heartburn, reflux are well-controlled on PPI therapy. No unintentional weight loss. Labs reviewed: WBC 8.1, Hgb 6.2, MCV 83.3, platelets 257, PT 22.8, INR 2.04, serum iron 35, TIBC 481, %sat 7, ferritin 9.4. Vitamin B12 and folate are
pending.
IMPRESSION / PLAN:
new iron def anemia. Hx of PUD, hiatal hernia/fundoplicaton, colon polyps
EGD/colonoscopy tomorrow
Subjective
Subjective
Date of Service: September 03, 2023
Pt w/o complaints of bleeding
Objective
Data Reviewed
Laboratory Data:
Laboratory Results
09/03/23 07:30
09/03/23 07:30
Laboratory Results
Total Bilirubin 0.5 mg/dl (0.2-1.3) 09/01/23 12:43
AST 26 U/L (14-36) 09/01/23 12:43
ALT 15 U/L (0-35) 09/01/23 12:43
Alkaline Phosphatase 79 U/L (38-126) 09/01/23 12:43
Vital Signs and I&O:
Vital Signs
Temp Pulse Resp BP Pulse Ox
97.8 F 61 16 109/75 100
09/03/23 07:30 09/03/23 07:30 09/03/23 07:30 09/03/23 07:30 09/03/23 07:30
I&O
09/02/23 09/03/23 09/04/23
06:59 06:59 06:59
Intake Total 970 / 970 1690 / 1690
Balance 970 / 970 1690 / 1690
Physical Exam
Physical Exam
GI: Soft and Non Distended
[2023-09-03] MEDS: NSS (PRESERVATIVE FREE) 10 ML IV ×2 (09:12→20:28)
[2023-09-03] MEDS: KCL 20 MEQ PO (09:12)
[2023-09-03] MEDS: TOPROL XL 75 MG PO (09:13)
[2023-09-03] MEDS: PROTONIX IV 40 MG IV ×2 (09:13→20:28)
[2023-09-03] MEDS: LASIX PO (11:27)
--- NOTE | 2023-09-03 11:28 | W.PN.HOSP.TC ---
Today's Communication/Plan
-
IV iron
trend h/h
NPO for EGD/C-scope in am
hold eliquis
Assessment / Plan
Assessment / Plan
#Symptomatic anemia likely secondary suspected GI bleed (upper versus lower) possibly worsening due to Eliquis and KARISSA
#History of GI bleed
GERD Status post laparoscopic paraesophageal hernia repair with Mary fundoplication
In ER rectal exam Brown stool trace positive
PPI twice daily
Hgb of 9.1 s/p 2u PRBC so far.
Continue with IV iron.
Trend H&H
2 large-bore IVs at all time
low iron stores
Plan will be for endoscopy and colonoscopy on Monday. Patient agreed and did stay would like to avoid holding Eliquis till Monday as high risk.
Gastroenterology evaluation
#Hypokalemia
Replete/monitor
#Paroxysmal atrial fibrillation status post PVI
#Sick sinus syndrome status post pacemaker implantation
Holding Eliquis till Monday for procedures as high risk of bleeding in setting of hiatal hernia
Continue with metoprolol and sotalol
Monitor on telemetry
#History of stroke
Currently on Eliquis which needs to be held in the setting of symptomatic anemia and concern for gastrointestinal bleeding
#Moderate pulmonary hypertension
Monitor oxygenation status closely
Continue with diuretics if blood pressure can tolerate it
Home dose of 120mg lasix (was increase to 160mg due to SOB which seems due to symptomatic anemia) and on chronic KCL.
HLD
Cont statin
DVT prophylaxis SCDs in the setting of GI bleed
d/w with spouse on 09/01.
Anticipated Discharge: 24 - 48 hours
Subjective/Interval History
-
Date of Service: September 03, 2023
feeling better
denies sob
Objective Data
-
Labs:
Laboratory Results
09/03/23
07:30
WBC 6.2
Hgb 9.1 L D
Hct 28.4 L
Plt Count 245
Sodium 137
Potassium 3.9
Chloride 101
Carbon Dioxide 29
BUN 19 H
Creatinine 0.8
Glucose 82
Calcium 9.1
Vital Signs:
Vital Signs
Temp Pulse Resp BP Pulse Ox
97.8 F 61 16 107/75 100
09/03/23 07:30 09/03/23 09:11 09/03/23 07:30 09/03/23 09:11 09/03/23 07:30
I&O
09/02/23 09/03/23 09/04/23
06:59 06:59 06:59
Intake Total 970 / 970 1690 / 1690
Balance 970 / 970 1690 / 1690
Physical Exam
-
General: Well Developed, No Apparent Distress and Other (less pale )
HEENT: Normocephalic, Atraumatic and Moist Mucous Membranes
Respiratory: Clear to Auscultation
Cardiac: Regular Rhythm and S1/S2; Negative Murmur, Rub or Gallop
GI: Soft, Nontender, Nondistended and Normal Bowel Sounds; Negative Organomegaly
Rectal: Deferred by Provider
Musculoskeletal: No Clubbing, No Cyanosis and No Edema
Skin: Negative Rash
Neuro: Awake, AO x 3, No Motor Deficits and Nonfocal/Grossly Intact
Psych: Calm
Data Reviewed
-
Total Time Spent with Patient (in minutes): 55
[2023-09-03] MEDS: LASIX 120 MG PO (11:46)
[2023-09-03] MEDS: FERRLECIT 110 MG IV (14:39)
[2023-09-03 15:45] VITALS: BP 102/56
[2023-09-03] MEDS: GAVILAX 238 GM PO (16:58)
[2023-09-03 19:36] VITALS: BP 118/59
[2023-09-03] MEDS: LIPITOR 20 MG PO (21:46)
[2023-09-03] MEDS: MELATONIN 10 MG PO (21:46)
[2023-09-03] MEDS: KCL 10 MEQ PO (21:46)
[2023-09-03 23:37] VITALS: BP 94/41
[2023-09-04 03:46] VITALS: BP 109/68
[2023-09-04 06:00] VITALS: BMI 22.6
[2023-09-04 07:00] VITALS: BP 92/40
[2023-09-04] MEDS: BETAPACE 120 MG PO (08:00)
[2023-09-04] MEDS: KCL 20 MEQ PO (08:02)
[2023-09-04] MEDS: LASIX PO (08:02)
[2023-09-04] MEDS: PROTONIX IV 40 MG IV (08:03)
[2023-09-04] MEDS: NSS (PRESERVATIVE FREE) 10 ML IV (08:03)
[2023-09-04] MEDS: TOPROL XL PO (08:03)
[2023-09-04 08:15] LABS: Hematocrit 28.5 % (37.0-47.0); Hemoglobin 9.3 g/dL (12.0-16.0); Mean Corp Hgb Conc. 32.6 g/dL (33.0-37.0); Mean Corpuscular Hgb 27.3 pg (27.0-31.0); Mean Corpuscular Volume 83.6 fL (81.0-99.0); Platelet Count 259 10^3/uL (130-400); Red Blood Cell Count 3.41 10^6/uL (4.20-5.40); Red Cell Dist. Width 14.6 % (11.5-14.5); White Blood Cell Count 6.4 10^3/uL (4.8-10.8)
[2023-09-04 08:47] LABS: Blood Urea Nitrogen 11 mg/dl (7-17); Calcium 9.1 mg/dl (8.4-10.2); Carbon Dioxide 27 mmol/L (22-30); Chloride 97 mmol/L (98-107); Estimated Creatinine Clearance 57 ml/min; Glucose 88 mg/dl (70-99); Sodium 134 mmol/L (135-145); eGFR > 60.00
[2023-09-04 08:53] LABS: Potassium 3.4 mmol/L (3.5-5.1)
--- NOTE | 2023-09-04 09:25 | CM ---
Reviewed chart, patient continues to function at independent level. Will be able to return home at discharge. No needs anticipated from CM dept.
Plan: Case management will continue to follow and assist with discharge planning. Home when medically cleared.
[2023-09-04 10:39] VITALS: BP 80/65; BP_SYST 11
--- NOTE | 2023-09-04 10:42 | W.PN.UPDATE ---
Update Note
Progress Note Update
EGD/colonoscopy as per note.
plan:
- ok to d/c and restart eliquis tomorrow
- will schedule outpatient manometry/pH study, doesn't need capsule with upper findings
will also f/u with me.
[2023-09-04 10:54] VITALS: BP 92/75; BP_SYST 16
[2023-09-04 11:00] VITALS: BP 124/59
--- NOTE | 2023-09-04 14:45 | W.PN.HOSP.TC ---
Today's Communication/Plan
-
d/c home
Assessment / Plan
Assessment / Plan
#Symptomatic anemia likely secondary suspected GI bleed (upper versus lower) possibly worsening due to Eliquis and KARISSA
#History of GI bleed
GERD Status post laparoscopic paraesophageal hernia repair with Mary fundoplication
In ER rectal exam Brown stool trace positive
PPI twice daily
EGD showing gastritis and loose fundoplication with possible hernia
Transition to oral iron pills at discharge.
#Hypokalemia
Replete/monitor
#Paroxysmal atrial fibrillation status post PVI
#Sick sinus syndrome status post pacemaker implantation
GI cleared for resumption of Eliquis from tomorrow postdischarge
Continue with metoprolol and sotalol
Monitor on telemetry
#History of CVA
Eliquis to be resumed from tomorrow post discharge
#Moderate pulmonary hypertension
Monitor oxygenation status closely
Continue with diuretics if blood pressure can tolerate it
Home dose of 120mg lasix (was increase to 160mg due to SOB which seems due to symptomatic anemia) and on chronic KCL.
#HLD
Cont statin
DVT prophylaxis SCDs in the setting of GI bleed
More than 30 minutes spent in discharge including
Final examination of the patient
Summarizing hospital stay
Instructions for continuing care to all relevant caregivers
Preparation of discharge records, prescriptions, and referral forms
Total time spent (in minutes): 38 mins
Anticipated Discharge: Within 24 hours
Subjective/Interval History
-
Date of Service: September 04, 2023
Post EGD seen in room, no complaints
Objective Data
-
Labs:
Laboratory Results
09/04/23
07:43
WBC 6.4
Hgb 9.3 L
Hct 28.5 L
Plt Count 259
Sodium 134 L
Potassium 3.4 L
Chloride 97 L
Carbon Dioxide 27
BUN 11
Creatinine 0.7
Glucose 88
Calcium 9.1
Vital Signs:
Vital Signs
Temp Pulse Resp BP Pulse Ox
97.4 F 61 16 124/59 99
09/04/23 11:00 09/04/23 11:00 09/04/23 11:00 09/04/23 11:00 09/04/23 11:00
I&O
09/03/23 09/04/23 09/05/23
06:59 06:59 06:59
Intake Total 1690 / 1690 2410 / 2410
Balance 1690 / 1690 2410 / 2410
Review of Systems
-
Respiratory: Reports No Symptoms
Cardiac: Reports No Symptoms
Abdomen/GI: Reports No Symptoms
Physical Exam
-
General: Other (less pale )
HEENT: Negative Oxygen
Respiratory: Clear to Auscultation
Cardiac: Regular Rhythm and S1/S2; Negative Murmur
GI: Soft, Nontender, Nondistended and Normal Bowel Sounds; Negative Organomegaly
Musculoskeletal: No Edema
Skin: Negative Rash
Neuro: Awake, AO x 3, No Motor Deficits and Nonfocal/Grossly Intact
Psych: Calm
[2023-09-05 05:45] LABS: Hepatitis C Antibody Negative (Negative)
--- NOTE | 2023-09-05 07:35 | W.DCSUMMARY ---
Discharge Summary
Discharge Data
Date of Admission: 09/01/23
Date of Discharge: 09/04/23
-
Pending Results: No
Hospital Course
Discharging Physician : Dr Chris Rodriguez
Disposition : Home
Primary care physician : Dr. Luly Mckeon
Principal Discharge diagnosis :
Gastrointestinal bleed and acute blood loss anemia
Gastritis
Chronic Discharge diagnosis :
Paroxysmal atrial fibrillation on Eliquis
Sick sinus syndrome post pacemaker placement
History of stroke
Moderate pulmonary hypertension
Hyperlipidemia
Hospital Course :
Patient is a 73-year-old female with above-mentioned past medical history came to ER for new onset of shortness of breath. Patient had stopped taking Lasix for 1 week while traveling to [place]. Patient initially came for question of heart failure
worsening although lab work is showing patient having significant anemia with hemoglobin of 6.2. Rectal examination was trace positive for occult blood in ER. Patient was transfused 2 days of blood and GI was consulted for further evaluation.
Patient on Eliquis with history of A-fib which was held. GI did EGD showing gastritis and loose fundoplication with possible hernia. Colonoscopy showing diverticulosis and polyp in sigmoid colon which was resected . No further episodes and patient
was instructed to follow-up with general surgery. Patient discharged home with resumption of Eliquis.
Important imaging findings :
None
Procedure findings :
None
Discharge Plan
-
Patient Disposition: Home (Routine Discharge)
Discharge Diagnosis/Procedures: Blood loss anemia, Gastritis, Colon polyp
Condition: Fair
Diet: Regular
Activity: As tolerated
Driving Restrictions: As prior to admission
Bathing Restrictions: OK to Shower
Referrals:
Luly Mckeon MD [Family Provider] - in one week
Prescriptions:
New
ferrous sulfate 325 mg (65 mg iron) tablet
325 mg PO DAILY Qty: 30 0RF
Continued
pantoprazole 40 MG tablet,delayed release (DR/EC)
40 mg PO DAILY
cod liver oil 1 EACH capsule
1 cap PO DAILY PRN (Reason: supplement)
atorvastatin 20 MG tablet
20 mg PO HS
sotalol 120 mg Tablet
120 mg PO Q12H Qty: 60 11RF
metoprolol succinate 50 mg Tablet Extended Release 24 Hr
75 mg PO DAILY
potassium chloride 20 mEq Tablet,Er Particles/Crystals
20 meq PO DAILY
potassium chloride 20 mEq Tablet,Er Particles/Crystals
10 meq PO HS
furosemide 80 mg Tablet
160 mg PO DAILY
Patient Comments:
09/01/2023, dose was changed on Monday (08/29/2023) to two tablets daily per pt.
ascorbic acid (vitamin C) [Vitamin C] 500 mg Tablet,Chewable
500 mg PO DAILY PRN (Reason: supplement)
Tylenol PM Extra Strength 25-500 mg Tablet
1 tab PO HS PRN (Reason: sleep)
vitamin E (dl, acetate) 180 mg (400 unit) Capsule
180 mg PO DAILY PRN (Reason: supplement)
Patient Comments:
09/01/2023, chewable.
melatonin 10 mg Tablet,Chewable
10 mg PO HS
metoprolol succinate 50 mg tablet extended release 24 hr
50 mg PO HS
Benefiber (guar gum)
2 cap PO BID
Held
Eliquis 5 mg Tablet
5 mg PO BID
Hold Instructions: Resume on 09/05/23.
Discharge Orders:
Discharge Patient (As Directed); Ordered 09/04/23
Ordered By: Chris Rodriguez
Discharge Date and Time
Discharge Date/Time: 09/04/23 12:42
Print Language: URDU
== END 2023-09-04 12:42 | disposition home or self-care (01) | DRG 378 ==
LOC: 3 WEST ACU 15:39
PROVIDERS: Emergency Medicine; Registered Nurse; ADMITTING PHYSICIAN Hospitalist; ATTENDING PHYSICIAN Hospitalist; CONSULT PHYSICIAN Internal Medicine; EMERGENCY PHYSICIAN Emergency Medicine; FAMILY PHYSICIAN Family Medicine
PROC: 30233N1 Transfusion of Nonautologous Red Blood Cells into Peripheral Vein, Percutaneous Approach (ICD-10-PCS; 2023-09-01)
PROC: 0DBN8ZX Excision of Sigmoid Colon, Via Natural or Artificial Opening Endoscopic, Diagnostic (ICD-10-PCS; 2023-09-04)
DX: K57.31 Diverticulosis of large intestine without perforation or abscess with bleeding (principal); D62 Acute posthemorrhagic anemia; D68.32 Hemorrhagic disorder due to extrinsic circulating anticoagulants; I50.32 Chronic diastolic (congestive) heart failure; E87.6 Hypokalemia; T50.2X5A Adverse effect of carbonic-anhydrase inhibitors, benzothiadiazides and other diuretics, initial encounter; I48.0 Paroxysmal atrial fibrillation; Z95.0 Presence of cardiac pacemaker; I49.5 Sick sinus syndrome; I27.20 Pulmonary hypertension, unspecified; D50.9 Iron deficiency anemia, unspecified; K44.9 Diaphragmatic hernia without obstruction or gangrene; Z79.01 Long term (current) use of anticoagulants; E78.00 Pure hypercholesterolemia, unspecified; Z86.73 Personal history of transient ischemic attack (TIA), and cerebral infarction without residual deficits
CPT/HCPCS: 88305; 36430; 71046; 80048; 80053; 82607; 82728; 82746; 83540; 83550; 83880; 84484; 85014; 85018; 85025; 85027; 85379; 86803; 86850; 86900; 86901; 86920; 88342; 93005; 99285; J2916; P9016

== ENCOUNTER 2023-10-01 17:51 | Inpatient (IN) | payer OTHER, SELFPAY ==
[2023-10-01] VITALS (12 sets, daily range): BP systolic 91–122; BP diastolic 50–90; BMI 22.5; BMI 23.1
--- NOTE | 2023-10-01 15:35 | ED.GENMED ---
History of Present Illness
General
Chief Complaint: Breathing Problem
Source: patient
Exam Limitations: none
Time Seen by Provider: 10/01/23 15:20
Nursing documentation reviewed up to this point in time: agreed with
Travel History
Have you had any contact with someone who has COVID-19?: No
Do you have any symptoms of coronavirus? Fever > 100 degrees, chills, cough, shortness of breath, sore throat, loss of taste or smell, muscle aches, or headache?: No
History of Present Illness
History of Present Illness:
Patient discharged in the hospital 4 weeks ago after receiving blood transfusion for symptomatic anemia, secondary to possible GI bleed, presents to ED secondary to recurrent shortness of breath with exertion and fatigue, since being discharged from
the hospital. Patient is currently taking iron pills. Patient has also resumed taking Eliquis. Patient does report dark stool, but is unsure whether or not this is related to iron pills that she is taking. Denies chest pain. Denies fever.
Denies dizziness. Denies weakness. Denies loss of appetite. Denies weight loss.
Past History
Past History
ED Past Medical History: Arrthythmia, GERD and Other (anemia)
ED Past Surgical History: Appendectomy and Cardiac
Social History
Tobacco: Non-smoker
Alcohol: Daily
Personal: Single
Living: with family
Employment: Employed
Review of Systems
Review of Systems
Allergies reviewed?: Yes
All Other Systems: ROS reviewed and negative except as documented in HPI and ROS
Constitutional: Reports no symptoms
EENT: Reports no symptoms
Respiratory: Reports trouble breathing
Cardiac: Reports no symptoms; Denies chest pain
ABD/GI: Reports black stools; Denies abdominal pain, nausea, vomiting or diarrhea
: Reports no symptoms; Denies bleeding
Musculoskeletal: Reports no symptoms
Skin: Reports no symptoms
Neurological: Reports no symptoms
Phy Exam
Physical Exam
Physical Exam:
Physical Exam
General: mild distress, not acutely ill. afebrile
Head: nc/at. eomi
Neck: supple. normal range of motion.
Heart: s1/s2 regular rate and rhythm, no murmur. equal radial pulses.
Lungs: no acute respiratory distress. clear bilaterally
Abdomen: normal bowel sounds. not tender. rectal exam (REBECCA Maravilla, at bedside): melena, grossly heme positive.
Neuro: alert and oriented. no focal neurological deficits
Skin: no rash. pale appearing
Psychiatric: well kept. interactive and cooperative
Extremities: no edema. no calf tenderness.
Scores
Heart Failure Risk
Heart Failure Risk Score: Not Applicable
Course
Orders/Labs/Results
Orders:
Orders
10/01/23 Dinner
Clear Liquid
At Your Request: Full Participation
10/01/23 15:05
EKG [Electrocardiogram (*1)] Urgent
Reason for Study: Shortness of Breath
EKG- Treatment ONCE
10/01/23 15:41
Type+Screen Urgent
Basic Metabolic Panel Urgent
Complete Blood Count/With Diff Urgent
Magnesium Urgent
NT-proBNP Routine
Comment: ADD ON
10/01/23 17:22
* Blood Bank Products Urgent
Blood Bank Products: *Packed RBC Leuko(PRBC's)
Quantity: 1
Transfuse Today: Yes
Reason: Bleeding
IV Insert/Care/Rem.- Treatment PRN
Pantoprazole 80 mg/100 ml Nss [Protonix] 80 mg in 100 ml IV NOW
Pantoprazole [Protonix IV] 80 mg IV NOW STA
10/01/23 17:42
Potassium Chloride [KCl] 40 meq PO NOW STA
10/01/23 17:43
Admit/Transfer Patient As Directed
Co-Sign Provider:
Level of Care: Inpatient admission
Assign to:: Telemetry
Physician / Group: soto/hospitalist
Diagnosis: anemia
Reason for Telemetry: Arrhythmia
Date to Stop Telemetry: 10/04/23
Time to Stop Telemetry: 11:00
Reason for Hospitalization: Symptomatic anemia, GI bleed, hypokalemia
Expected length of stay greater than two midnights?: Yes
ELOS- Estimated Length of Stay in days: 3
I certify the patient meets the requirements for IP care: Yes
10/01/23 17:45
Code Status As Directed
Resuscitation Status: Full Code
10/01/23 17:51
Add On- LAB Routine
Tests Added?: probnp
CXR2 [CR Chest - 2 Views ] Routine
Comment:
Reason For Exam: BAXTER. Hx of pulm htn. pulm edema?
10/01/23 19:46
GASTROINTESTINAL CONSULT Routine
Consulting Provider: Halina Amaro
Was physician already notified: Yes
Activity As Directed
Activity Level: Out of Bed-Early Mobility
INT (Intravenous Needle Therapy) As Directed
Comment: Place 2 IV catheters of the largest bore possible until stable
Intake/ Output As Directed
Frequency: Per unit guidelines
Orthostatic Vital Signs As Directed
Orthostatic VS Frequency: Now
Comment: then every four hours for twenty-four hours
Pneumatic Compression Sleeves As Directed
Type: Knee high
Vital Signs As Directed
Frequency: Per unit guidelines
DX Deep Vein Thrombosis Video Routine
10/01/23 20:00
Sotalol [Betapace] 120 mg PO Q12
10/01/23 21:55
H&H Q6H
10/01/23 22:00
Potassium Chloride [KCl] 20 meq PO ONCE@2200 ONE
10/02/23 00:01
Lactated Ringers [Lr] 1,000 ml IV 50 mls/hr
10/02/23 04:51
Basic Metabolic Panel IN AM
H&H Q6H
PTT IN AM
Prothrombin Time IN AM
10/02/23 Breakfast
NPO
Allow oral meds: Yes
Allow clear liquids: Sips of Clears
10/02/23 08:00
Metoprolol Xl [Toprol Xl] 75 mg PO DAILY
10/02/23 11:08
H&H Q6H
10/04/23 11:00
DC Protocol for Telemetry ONCE
Abnormal Lab Results
10/01/23
15:41
RBC 2.37 L 10^6/uL
(4.20-5.40)
Hgb 7.1 L g/dL
(12.0-16.0)
Hct 21.6 L %
(37.0-47.0)
MCHC 32.9 L g/dL
(33.0-37.0)
RDW 20.7 H %
(11.5-14.5)
Absolute Neuts (auto) 8.5 H 10^3/uL
(1.4-6.5)
Absolute Lymphs (auto) 0.9 L 10^3/uL
(1.2-3.4)
Absolute Monos (auto) 0.7 H 10^3/uL
(0.1-0.6)
Neutrophils % 82.4 H %
(42.2-75.2)
Lymphocytes % 8.9 L %
(20.5-51.1)
Potassium 2.9 L mmol/L
(3.5-5.1)
BUN 22 H mg/dl
(7-17)
Glucose 107 H mg/dl
(70-99)
Crossmatch IS Only See Detail
10/01/23 15:41
10/01/23 15:41
Vital Signs
Initial and Last Documented VS:
Initial Vital Signs
Temp Pulse Resp BP Pulse Ox
98.5 F 60 17 112/50 97
10/01/23 15:04 10/01/23 15:04 10/01/23 15:04 10/01/23 15:04 10/01/23 15:04
Last Documented Vital Signs
Temp Pulse Resp BP Pulse Ox
97.4 F 62 18 93/53 96
10/02/23 11:00 10/02/23 11:00 10/02/23 11:00 10/02/23 11:00 10/02/23 11:00
MDM/Problems Addressed
MDM/Problems Addressed:
H/H noted.
History and exam concerning for symptomatic anemia. Will transfuse and start protonix.
Discussed with (GI).
*EKG
Interpreted by ED Provider?: Yes
EKG Intrepretation Date: 10/01/23
Heart Rate: 60
Rhythm: ventricular paced
*Critical Care Note
Total Time (30-74mins, 75-104mins- exclusive of procedures): Not Applicable
ED Attending Note
-
Portions of this chart may have been created with voice recognition software.� Occasional wrong word or��sound alike� substitutions may have occurred due to the inherent limitations of voice recognition software.
Discharge Plan
Departure
Patient Disposition: Admit
Date of Disposition: 10/01/23
Time of Disposition: 17:22
Admit to: Telemetry
Presentation/result/management discussed w/ accepting MD/DO: Hospitalist
Discharge Problem:
Acute GI bleeding, Symptomatic anemia
Interventions
Interventions:
*Risk Screen - Suicide Last Done: 10/01/23 15:38
*General Assessment Last Done: 10/01/23 15:38
*Neglect/Abuse Screening Last Done: 10/01/23 15:38
*ED COVID-19 Vaccine History Last Done: 10/01/23 20:52
*Nursing Disposition Last Done: 10/01/23 19:37
ED- Cardiac Assessment Last Done: 10/01/23 15:38
ED- Pulmonary Assessment Last Done: 10/01/23 15:38
Discharge Date and Time
Discharge Date/Time: 10/01/23 19:37
[2023-10-01 15:53] LABS: % Basophils 0.5 % (0-2); % Eosinophils 1.2 % (0-6); % Immature Granulocytes 0.4 % (0-0.5); % Lymphocytes 8.9 % (20.5-51.1); % Monocytes 6.6 % (1.7-9.3); % Neutrophils 82.4 % (42.2-75.2); Absolute Basophils 0.1 10^3/uL (0-0.2); Absolute Eosinophils 0.1 10^3/uL (0-0.7); Absolute Lymphocytes 0.9 10^3/uL (1.2-3.4); Absolute Monocytes 0.7 10^3/uL (0.1-0.6); Absolute Neutrophils 8.5 10^3/uL (1.4-6.5); Hematocrit 21.6 % (37.0-47.0); Hemoglobin 7.1 g/dL (12.0-16.0); Mean Corp Hgb Conc. 32.9 g/dL (33.0-37.0); Mean Corpuscular Volume 91.1 fL (81.0-99.0); Mean Platelet Volume 9.2 fL (7.4-10.4); Nucleated Red Blood Cells % 0 %; Platelet Count 171 10^3/uL (130-400); Red Blood Cell Count 2.37 10^6/uL (4.20-5.40); Red Cell Dist. Width 20.7 % (11.5-14.5); White Blood Cell Count 10.3 10^3/uL (4.8-10.8)
[2023-10-01 16:12] LABS: Blood Urea Nitrogen 22 mg/dl (7-17); Calcium 8.5 mg/dl (8.4-10.2); Carbon Dioxide 26 mmol/L (22-30); Chloride 101 mmol/L (98-107); Estimated Creatinine Clearance 40 ml/min; Glucose 107 mg/dl (70-99); Potassium 2.9 mmol/L (3.5-5.1); Sodium 135 mmol/L (135-145); eGFR 59.86
--- NOTE | 2023-10-01 17:34 | HPS.HSE ---
Family Physician
-
Family Physician: Luly Mckeon
Chief Complaint
-
Fatigue
History of Present Illness
73 yo F with extensive pmhx presenting from home with weakness. Patient with patient spouse at bedside who stated patient has been feeling more tired more than usual. She is fatigued majority of the time. Unable to walk longer distances as she
feels tired easily. Denies any chest pain or shortness of breath at rest or with exertion. Denies PND orthopnea. Did not realize she had trace lower extremity edema. States he is compliant with her diuretics. Denies any nausea or vomiting.
Denies any hematuria. States she is compliant with the iron p.o. supplementation. Does states of dark-colored stools at home. No abdominal pain or cramps with bowel movements. No change in appetite. Patient was recently admitted and underwent
extensive gastroenterology workup including endoscopy and colonoscopy. States she is scheduled to undergo outpatient capsule endoscopy next Monday with Dr. Mayes. In the ER rectal exam was done and found to be grossly heme positive. Hemoglobin
found to be 7.1 in ER and will be receiving PRBC.
Medical History
Past Medical History
Past Medical History: Reports Other
Additional Past Medical History:
Pulmonary hypertension
Sick sinus syndrome
Chronic diastolic heart failure
Paroxysmal A-fib
Iron deficiency anemia
Hyperlipidemia
COPD asthma
History of melanoma
Past Surgical History: Reports Other
Additional Past Surgical History:
Mohs surgery on forehead
Hiatal hernia surgery
Appendectomy
Social History
Tobacco: Non-smoker
Alcohol: Occasional
Personal:
Living: With Family
Family History
Family History: Not pertinent
Allergies / Home Medications
Allergies reflects when Allergies were last updated in [facility].
Home Medications with original date entered in [facility]
Allergy/Medication List:
Allergies
Allergy/AdvReac Type Severity Reaction Status Date / Time
naproxen [Naproxen] Allergy 'heart Verified 10/01/23 15:04
beats
faster'
NSAIDS (Non-Steroidal Allergy heart races Verified 10/01/23 15:04
Anti-Inflamma
Home Medications
pantoprazole 40 mg tablet,delayed release 40 mg PO DAILY Gastrointestinal issue 02/24/11
cod liver oil 1 cap PO DAILY PRN supplement 06/12/12
atorvastatin 20 mg tablet 20 mg PO HS High cholesterol 10/09/14
sotalol 120 mg tablet 120 mg PO Q12H arrhythmia #60 tabs 02/23/22
apixaban 5 mg tablet (Eliquis) 5 mg PO BID 09/01/23
diphenhydramine 25 mg-acetaminophen 500 mg tablet (Tylenol PM Extra Strength) 1 tab PO HS PRN sleep 09/01/23
furosemide 80 mg tablet 160 mg PO DAILY 09/01/23
guar gum 1 gram tablet 2 g PO BID ##0 09/01/23
metoprolol succinate 50 mg tablet,extended release 24 hr 50 mg PO HS 09/01/23
metoprolol succinate 50 mg tablet,extended release 24 hr 75 mg PO DAILY 09/01/23
potassium chloride 20 mEq tablet,extended release(part/cryst) 20 meq PO BID 09/01/23
ferrous sulfate 325 mg (65 mg iron) tablet 325 mg PO DAILY #30 tabs 09/04/23
Review of Systems
-
History Source: Patient and Family
A 12 point ROS was completed and negative except as noted: Yes
Physical Exam
Vital Signs
Vital Signs
Temp Pulse Resp BP Pulse Ox
98.5 F 61 24 94/66 98
10/01/23 15:04 10/01/23 16:45 10/01/23 16:45 10/01/23 16:00 10/01/23 16:30
Physical Exam
General: Well Developed, Well Nourished, No Apparent Distress and Other (pale)
HEENT: NormoCephalic, Moist mucous membranes, Atraumatic and Other (pale conjuctiva )
Respiratory: Clear
Cardiac: S1/S2 and Regular Rhythm; No Murmur or Rub
GI: Soft, Non Tender, Non Distended and Normal Bowel Sounds; No Organomegaly
Rectal: Deferred by Provider
Musculoskeletal: No Clubbing, No Cyanosis and No Edema
Skin: No Rash
Neuro: Awake, No Motor Deficits and Nonfocal/grossly intact
Psych: Calm
Laboratory Results
-
10/01/23 15:41
10/01/23 15:41
Impression/Plan
-
# Shortness of breath likely secondary to symptomatic anemia
#Suspected gastrointestinal small bowel bleed versus upper GI bleed
#KARISSA
Clears for now
N.p.o. past midnight in case of GI procedures
Hemoglobin 7.1 and was 9.3 approximately 4 weeks ago prior to discharge
Hold Eliquis
Started on PPI drip
Gentle IV fluids after receiving blood transfusion.
Trend H&H
To complete workup check proBNP and two-view chest x-ray
GI consulted in the ER.
#Paroxysmal atrial fibrillation status post PVI
#Sick sinus syndrome status post pacemaker implantation
Holding Eliquis in setting of symptomatic anemia/GI bleed. Patient says she was supposed to stop starting tomorrow for capsule endoscopy anyways
Patient on both metoprolol and sotalol. Outpatient cardiology follow-up
Monitor on telemetry
#History of CVA
Eliquis to be to be held
#Moderate pulmonary hypertension
Monitor oxygenation status closely
Continue with diuretics if blood pressure can tolerate it in the morning
Check proBNP
#HLD
Cont statin
#Hypokalemia
Potassium 2.9. Will give 40 mEq now and additional 20 mill equal later tonight
DVT prophylaxis SCDs in the setting of GI bleed
Discussed with patient spouse at bedside in detail
Full code
I spent a total of 78 minutes with the patient or on the floor. More than 50% of this time involved counseling and coordination of care.
[2023-10-01] MEDS: PROTONIX IV 80 MG IV (17:48)
[2023-10-01 18:34] LABS: NT-proBNP 2400 pg/ml
[2023-10-01] MEDS: KCL 40 MEQ PO (18:48)
[2023-10-01] MEDS: PROTONIX 100 IV (19:13)
[2023-10-01] MEDS: BETAPACE 120 MG PO (20:45)
[2023-10-01] MEDS: TYLENOL 650 MG PO (21:58)
[2023-10-01] MEDS: BENADRYL 25 MG PO (21:58)
[2023-10-01] MEDS: KCL 20 MEQ PO (21:59)
[2023-10-01 22:01] LABS: Hemoglobin 9.2 g/dL (12.0-16.0)
[2023-10-01] MEDS: LR 1000 IV (23:56)
--- NOTE | 2023-10-02 00:09 | PTCARENOTE ---
"Pt. arrived to unit from ED via stretcher. Pt. AAOx3 and able to make needs known. Pt. arrived with [employer] running. Oriented to unit. Call lerma within reach. Plan of care ongoing."
[2023-10-02 04:20] VITALS: BP 106/62
[2023-10-02 04:57] LABS: Hematocrit 25.4 % (37.0-47.0); Hemoglobin 8.3 g/dL (12.0-16.0)
[2023-10-02 05:15] LABS: APTT 33.7 Sec (23.4-35.0); INR 1.49; PT 17.8 Sec (11.4-14.6)
[2023-10-02 05:29] LABS: Blood Urea Nitrogen 18 mg/dl (7-17); Calcium 8.2 mg/dl (8.4-10.2); Carbon Dioxide 26 mmol/L (22-30); Chloride 103 mmol/L (98-107); Estimated Creatinine Clearance 57 ml/min; Glucose 91 mg/dl (70-99); Potassium 3.2 mmol/L (3.5-5.1); Sodium 134 mmol/L (135-145); eGFR > 60.00
[2023-10-02 07:00] VITALS: BP 104/55
--- NOTE | 2023-10-02 08:35 | CON.GI ---
Addendum entered and electronically signed by Halina Amaro MD 10/02/23 18:32:
I saw and examined the patient.
The RAM PRESS OPERATOR or PA's note was reviewed and I agree with the note.
Comment: 73-year-old female with multiple medical problems including atrial fibrillation on Eliquis, history of CVA, COPD, history of GI bleeding in the past due to Roger's lesions associated with large hiatal hernia status post paraesophageal
hernia repair with in 2012 presenting with black stool and iron deficiency anemia. She has had previous endoscopies with nonhealing ulcers and angiectasia's, she was recently in the hospital in early September 2023 with shortness of breath, noted to
have anemia with a hemoglobin of 6.2, had upper endoscopy that showed gastritis, otherwise unremarkable, colonoscopy, fair prep, hyperplastic polyp removed and diverticulosis noted. 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
ineffective swallowing, reflux with poor acid suppression on the pantoprazole, was planned to have for endoscopy with possible dilation and small bowel capsule placement 10/04/2023 but presenting now with black stool on oral iron, increased shortness
of breath hemoglobin of 7.1. On discharge 09/04/23, hemoglobin was 9.3.
She reports taking oral iron, also said she was asked to taper the pantoprazole and was taking it every other day. Denies NSAID use. Last Eliquis dose was 10/01/2023.
-Iron deficiency anemia with black heme positive stool
Multiple previous endoscopies with erosion/Roger's lesions
Recent EGD/colonoscopy without any significant findings that could explain this black stool
Will plan for EGD with possible dilation and small bowel capsule study tomorrow.
Continue IV PPI daily for now. Eliquis is on hold.
N.p.o. past midnight.
Will follow-up
Original Note:
Consultation
-
Date/Time Consultation Requested: 10/01/23 @ 19:46
Date/Time Consultation Performed: 10/02/23 @ 08:45
Requesting Provider: Dr. Elizondo
Performing Provider: ADRIAN Delgado; Dr. Halina Amaro
Reason for Consultation: recurrent anemia
Medical History
Chief Complaint / HPI
Chief Complaint: fatigue
History of Present Illness:
The pt is a 73 yo female with a PMH significant for CHF, sick sinus syndrome (s/p pacemaker 2015), paroxysmal A-fib (on Eliquis), CVA (2012, no residual deficits), iron deficiency anemia, hyperlipidemia, COPD, pulmonary HTN, GERD, PUD, history of
recurrent GI bleeding for multiple years due to Roger lesions/large hiatal hernia on chronic anticoagulation who underwent paraesophageal hernia repair with Mary fundoplication with Dr. Venegas in 2012, who presented to the ER with complaints of
fatigue found to have recurrent anemia which we are being asked to evaluate for. She is well-known to our GI group, following with Dr. Escamilla outpatient. Prior endoscopies and colonoscopies were reviewed showing prior nonhealing gastric ulcer, hiatal
hernia and Roger lesions as well as colon polyps (sessile serrated), colonic angioectasia's in the ascending colon and hemorrhoids. She had endoscopy in March [address] Escamilla showed multiple gastric antral erosions with evidence of loose Mary
fundoplication. Biopsies showed mild gastritis, negative for H pylori. She had recent admission earlier this month for symptomatic anemia with a hgb of 6.2. She received blood transfusions and underwent EGD and colonoscopy with no overt signs of
bleeding. She was advised to undergo pH/manometry outpatient with Dr. Mayes. At the time of discharge her hgb was 9.3. She did see Dr. Mayes in the office on September 24 to review her esophageal manometry which showed EGJ obstruction with relaxation,
consistent with stricture or extrinsic scar. She was advised to repeat her CBC due to symptoms of mild exertional dyspnea. She was also set up for EGD with capsule placement which is pending on 10/03. Her outpatient hemoglobin was 8.2 and had been
advised to go to the ER at that time. She was scheduled for a follow-up visit on 10/24 with Shilpa crouch nurse practitioner. She now presents again with symptomatic anemia with a hgb 7.1. She notes that since her discharge she has been getting
progressively dyspneic. She notes that she does walk her dog several times a day and notes that as of this past week she had had to take frequent pauses while walking due to shortness of breath. She otherwise denies any chest pain, dizziness, or
lightheadedness. She continues on oral iron pills and does admit to black stools but denies any bright red blood per rectum. She does note some mild dysphagia associated with large pills but otherwise feels her swallowing is stable. She denies
any odynophagia, abdominal pain, nausea, vomiting, unintentional weight loss, loss of appetite. Her last dose of Eliquis was taken on Monday morning. She denies any NSAID use. She does endorse drinking wine anywhere from 1 to 4 glasses daily but
notes that she drinks a low alcohol content wine. She was scheduled to hold her Eliquis today as she is pending EGD with capsule placement and possible esophageal dilation on Tuesday 10/03. Upon evaluation in the ER, routine labs showed hemoglobin
7.1, MCV 91.1, platelets 171,000, INR 1.49, sodium 135, potassium 2.9, BUN 22, creatinine 1.0, magnesium 2.0, proBNP 2400. Chest x-ray showed no acute disease in the chest. On rectal exam in the ER per documentation she had melena was grossly heme
positive stool. She was placed on PPI drip, made n.p.o., admitted for further evaluation by GI. She received 1 unit of PRBC with improvement of her hgb to 9.2 down to 8.3 this am. Her Eliquis was placed on hold. She does note improvement in her
symptoms since her blood transfusion. She admits to 1 episode of black stool this morning but it was small. She has been hemodynamically stable.
Past Medical History
Past Medical History: Arrhythmias (afib on eliquis), Asthma, CHF (chronic diastolic HF), COPD, CVA, GERD, HTN, Hypercholesterolemia and Other (pulmonary hypertension, KARISSA, sick sinus syndrome status post pacemaker placement, hx PUD)
Past Surgical History: Appendectomy, Cardiac (PPM (2016)) and Other (hiatal hernia repair, Mohs procedure, Mary fundoplication with paraesophageal hernia repair in [address] Venegas)
Social History
Tobacco: Non-Smoker
Alcohol: Occasional
Drug: None
Personal:
Family History
Family History: Reviewed & Not Pertinent
Allergies / Home Medications
Allergy/AdvReac Type Severity Reaction Status Date / Time
naproxen [Naproxen] Allergy 'heart Verified 10/01/23 15:04
beats
faster'
NSAIDS (Non-Steroidal Allergy heart races Verified 10/01/23 15:04
Anti-Inflamma
�Medication �Instructions �Recorded
pantoprazole 40 mg tablet,delayed 40 mg PO Q48H Gastrointestinal 02/24/11
release issue
atorvastatin 20 mg tablet 20 mg PO HS High cholesterol 10/09/14
sotalol 120 mg tablet 120 mg PO Q12H arrhythmia #60 tabs 02/23/22
apixaban 5 mg tablet (Eliquis) 5 mg PO BID 09/01/23
diphenhydramine 25 1 tab PO HS PRN sleep 09/01/23
mg-acetaminophen 500 mg tablet
(Tylenol PM Extra Strength)
furosemide 80 mg tablet 160 mg PO DAILY 09/01/23
guar gum 1 gram tablet 2 g PO BID ##0 09/01/23
metoprolol succinate 50 mg 50 mg PO HS 09/01/23
tablet,extended release 24 hr
metoprolol succinate 50 mg 75 mg PO DAILY 09/01/23
tablet,extended release 24 hr
potassium chloride 20 mEq 20 meq PO BID 09/01/23
tablet,extended release(part/cryst)
ferrous sulfate 325 mg (65 mg 325 mg PO DAILY #30 tabs 09/04/23
iron) tablet
Review of Systems
-
History Source: Patient
Constitutional: Reports Fatigue
EENT: Reports No Symptoms
Respiratory: Reports Trouble Breathing
Cardiac: Reports No Symptoms
Abdomen/GI: Reports Black Stools and Other (pill dysphagia)
: Reports No Symptoms
Musculoskeletal: Reports No Symptoms
Skin: Reports No Symptoms
Neurological: Reports Weakness (generalized)
Vital Signs
Temp Pulse Resp BP Pulse Ox
98.3 F 72 18 104/55 100
10/02/23 07:00 10/02/23 07:00 10/02/23 07:00 10/02/23 07:00 10/02/23 07:00
Physical Exam
Exam
General: Well Developed, Well Nourished and No Apparent Distress
HEENT: Normocephalic, Anicteric and Atraumatic
Respiratory: Clear
Cardiac: S1/S2 and Regular Rhythm
GI: Soft, Non Tender, Non Distended and Normal Bowel Sounds
Rectal: Other (black heme positive per ER)
Musculoskeletal: No Edema
Skin: Warm and Dry
Neuro: Awake, Alert and Oriented
Psych: Calm
Results
WBC 10.3 10^3/uL (4.8-10.8) 10/01/23 15:41
Hgb 8.3 g/dL (12.0-16.0) L 10/02/23 04:51
Hct 25.4 % (37.0-47.0) L 10/02/23 04:51
MCV 91.1 fL (81.0-99.0) 10/01/23 15:41
Plt Count 171 10^3/uL (130-400) 10/01/23 15:41
Absolute Neuts (auto) 8.5 10^3/uL (1.4-6.5) H 10/01/23 15:41
PT 17.8 Sec (11.4-14.6) H 10/02/23 04:51
INR 1.49 10/02/23 04:51
APTT 33.7 Sec (23.4-35.0) 10/02/23 04:51
Sodium 134 mmol/L (135-145) L 10/02/23 04:51
Potassium 3.2 mmol/L (3.5-5.1) L 10/02/23 04:51
Chloride 103 mmol/L (98-107) 10/02/23 04:51
Carbon Dioxide 26 mmol/L (22-30) 10/02/23 04:51
BUN 18 mg/dl (7-17) H 10/02/23 04:51
Creatinine 0.7 mg/dL (0.6-1.0) 10/02/23 04:51
Calcium 8.2 mg/dl (8.4-10.2) L 10/02/23 04:51
Prior GI Procedures:
EGD: 09/04/23 Dr. Mayes: Normal esophagus. Possible loose fundoplication with possible hernia.Gastritis. Biopsied. Normal examined duodenum. Biopsied. Path negative for celiac, h pylori. +Gastropathy.
Endoscopy 04/04/23, Dr. Escamilla: Findings: gastropathy, tortuous esophagus, loose Mary fundoplication, few small gastric antral erosions in antrum, atrophic appearing stomach, neg for Hpylori and celiac.
12/15/2016 Dr. Garcia: Normal duodenal bulb and second portion of the duodenum. Erythematous mucosa in the antrum. Biopsied. Scar in the gastric antrum (lesser curvature). Biopsied. A Mary fundoplication was found. The wrap appears intact.
Benign-appearing esophageal stenosis. Z-line regular, 37 cm from the incisors. Path showing chronic inflammation.
03/18/2016 Dr. Garcia: Normal duodenal bulb and 2nd part of the duodenum. Erythematous mucosa in the gastric body and antrum. Biopsied. Gastric ulcer with clean base. Biopsied. A Mary fundoplication was found, anastomosis characterized by
congestion and edema. Tortuous esophagus. Z-line regular, 36 cm from the incisors. Path showing chronic inflammation of the stomach, ulcer.
06/18/2014 Dr. Garcia: Normal duodenal bulb and 2nd part of the duodenum. Biopsied. Erythematous mucosa in the antrum. Biopsied. Erythematous mucosa in the gastric body. Biopsied. Gastric ulcer with clean base. Biopsied. A Mary fundoplication
was found, anastomosis characterized by edema. Z-line regular, 35 cm from the incisors. Benign-appearing esophageal stricture. Path showing chronic gastritis and antral ulcer, neg h pylori, IM, celiac.
12/18/2013 Dr. Garcia: Nodule found in the duodenum. Biopsied. Nodular mucosa in the duodenal bulb. Biopsied. Erythematous mucosa in the gastric body and antrum. Biopsied. Gastric ulcer with clean base. Biopsied. An anti-reflux surgical site and
Mary fundoplication was found, anastomosis characterized by edema and erosion. A single gastric polyp. Biopsied. Z-line regular, 38 cm from the incisors. Benign-appearing esophageal stricture. Path showing chronic gastritis, neg celiac, h
pylori, John's.
2012 Dr. Garcia: Normal duodenal bulb and 2nd part of the duodenum. Gastric ulcer with clean base. This was biopsied. Gastric mucosal abnormality in the antrum characterized by erythema. This was biopsied. A single gastric polyp. This was
biopsied. Hiatus hernia. Non-bleeding erosive gastropathy. Normal cardia Benign-appearing esophageal stricture. Esophageal mucosal changes suspicious for eosinophilic esophagitis. Path showing chronic antritis/gastritis, neg h pylori, Jackson's.
Benign fundic gland polyp.
Colonoscopy: 09/04/23 Dr. Mayes: Preparation of the colon was fair. Diverticulosis in the left colon and in the right colon. One diminutive polyp in the sigmoid colon, removed with a jumbo cold forceps. Resected and retrieved. Path consistent with
hyperplastic polyp. Repeat in 3 years.
09/28/2017, Dr. Garcia: Diverticulosis in the descending colon and in the transverse colon. Moderate diverticulosis in the sigmoid colon. There was evidence of diverticular spasm. Non-bleeding external hemorrhoids. No specimens collected.
09/18/2023 esophageal manometry with pH/impedance: Short GE junction, with normal basal GEJ with elevated residual pressure in both supine and upright position. Jackhammer esophagus in the supine position with some ineffective swallows upright.
Normal bolus clearance. pH study showing combination of to reflux and then prolonged intraesophageal reflux with severe dietary indiscretion and poor gastric acid suppression with pantoprazole
Assessment / Plan
-
The pt is a 73 yo female with a PMH significant for CHF, sick sinus syndrome (s/p pacemaker 2015), paroxysmal A-fib (on Eliquis), CVA (2012, no residual deficits), iron deficiency anemia, hyperlipidemia, COPD, pulmonary HTN, GERD, PUD, history of
recurrent GI bleeding for multiple years due to Roger lesions/large hiatal hernia on chronic anticoagulation who underwent paraesophageal hernia repair with Mary fundoplication with Dr. Venegas in 2012, who presented to the ER with complaints of
fatigue found to have recurrent anemia which we are being asked to evaluate for. She is well-known to our group, with numerous endoscopies in the past secondary to recurrent gastric ulcers thought to be secondary to Roger's lesions with history
of paraesophageal hernia repair with Mary fundoplication in [address] Venegas. She was recently admitted the beginning of September with symptomatic anemia underwent EGD and colonoscopy at that time with no overt signs of bleeding or source of
bleeding. It did appear that there may be some loose appearing prior surgery. She was advised for outpatient manometry which she did undergo with the results as above. She is scheduled for an outpatient EGD with capsule placement on October 03 with
possible dilation secondary to EGJ obstruction on manometry. Upon admission her hemoglobin was 7.1, with appropriate response to 8.3 after 1 unit of blood. She does endorse a small black stool this morning otherwise no overt signs of bleeding.
She is hemodynamically stable.
Problem list:
-Symptomatic normocytic anemia
-Dyspnea on exertion, normal chest x-ray imaging
-History of GI bleed secondary to peptic ulcer disease
-History of paraesophageal hernia with repair with Mary's fundoplication in 2012
-Daily alcohol use
-Hypokalemia
-Mild hyponatremia
Other pertinent medical history:
-Paroxysmal atrial fibrillation on Eliquis
-CVA/TIA
-Iron deficiency anemia
-Hyperlipidemia
-COPD
-Pulmonary hypertension
-GERD
Recommendations:
-Etiology of recurrent anemia possibly secondary to upper GI source such as PUD versus small bowel etiology versus other.
---She has a longstanding history of recurrent peptic ulcer disease although not evident on EGD 1 month ago. Colonoscopy also unrevealing.
-At this time we will monitor her H&H and stool output.
-Transfuse to maintain hemoglobin greater than 7
-She is scheduled for outpatient EGD with capsule placement which we will keep for now pending her clinical course
-She remained stable today and her hemoglobin remained stable with no overt signs of bleeding, can proceed with outpatient procedure as scheduled. If she has any overt signs of bleeding during her admission she will need repeat EGD inpatient.
-Okay for clear liquid diet
-PPI IV twice daily
-Hold Eliquis for now
-She does drink wine 1 to 4 glasses daily. I did tell her that this will increase her risk of bleeding in combination with Eliquis. This also increases risk for fatty liver disease and liver cirrhosis secondary to alcohol. I did advise she
abstain from drinking alcohol or at least minimize the use.
-Further plan pending clinical course. She is hopeful to be discharged later today or tomorrow. I will review this with Dr. Amaro and Dr. Moise.
Data Reviewed
-
Old Records: Reviewed
-
-
Thank you for consultation and allowing me to participate in the patient's care. Please call the board certified orthodontist GI physician during the after hours with any questions or concerns.
[2023-10-02] MEDS: TOPROL XL 75 MG PO (08:55)
[2023-10-02] MEDS: BETAPACE 120 MG PO ×2 (08:57→20:24)
--- NOTE | 2023-10-02 09:13 | W.PN.HOSP.TC ---
Today's Communication/Plan
-
GI consult
trend Hgb with possible additional transfusion
Assessment / Plan
Assessment / Plan
# Shortness of breath likely secondary to symptomatic anemia
Hgb 7.1--transfused 1 unit PRBC-->9.2-->8.3
#Suspected gastrointestinal small bowel bleed (angioectasia, was to have a capsule endoscopy as outpatient on 10/03) versus upper GI bleed
#KARISSA
on 08/31 Fe sat was 7%, Ferritin 9.4
will order Fe infusion
#Paroxysmal a. Fib on chronic Eliquis
Permanent Pacemaker
Clears for now
N.p.o. past midnight in case of GI procedures
Hemoglobin 7.1 and was 9.3 approximately 4 weeks ago prior to discharge
Hold Eliquis
Started on PPI drip
Gentle IV fluids after receiving blood transfusion.
Trend H&H
To complete workup check proBNP and two-view chest x-ray
GI consulted in the ER.
Based on GI eval, consider Cardio input regarding possible watchman procedure. Pt known to [facility]
#Paroxysmal atrial fibrillation status post PVI
#Sick sinus syndrome status post pacemaker implantation
Holding Eliquis in setting of symptomatic anemia/GI bleed. Patient says she was supposed to stop starting tomorrow for capsule endoscopy
Patient on both metoprolol and sotalol. Outpatient cardiology follow-up
Monitor on telemetry
#History of CVA
Eliquis to be to be held
#Moderate pulmonary hypertension
Monitor oxygenation status closely
Continue with diuretics if blood pressure can tolerate it in the morning
proBNP 2400
#HLD
Cont statin
#Hypokalemia
Potassium 2.9-->3.2. Was give 40 mEq on admission and additional 20 mill later
DVT prophylaxis SCDs in the setting of GI bleed
Full code
Anticipated Discharge: > 48 hours
Subjective/Interval History
-
Date of Service: October 02, 2023
Still passing black tarry stools, has been using the bathroom
Objective Data
-
Labs:
Laboratory Results
10/01/23 10/02/23 10/02/23
21:55 04:51 11:00
Hgb 9.2 L D 8.3 L Pending
Hct 28.0 L 25.4 L Pending
PT 17.8 H
INR 1.49
APTT 33.7
Sodium 134 L
Potassium 3.2 L
Chloride 103
Carbon Dioxide 26
BUN 18 H
Creatinine 0.7
Glucose 91
Calcium 8.2 L
Vital Signs:
Vital Signs
Temp Pulse Resp BP Pulse Ox
98.3 F 61 18 118/60 100
10/02/23 07:00 10/02/23 08:55 10/02/23 07:00 10/02/23 08:55 10/02/23 07:00
I&O
10/01/23 10/02/23 10/03/23
06:59 06:59 06:59
Intake Total 730 / 730
Balance 730 / 730
Review of Systems
-
History Source: Patient, Physician (reviewed with GI, SCHEDULING COORDINATOR) and Coordinated Provider
Constitutional: Denies Fever
Respiratory: Reports No Symptoms and Trouble Breathing (was sob with exertion prior to admission); Denies Cough
Cardiac: Reports No Symptoms; Denies Chest Pain
Abdomen/GI: Reports Black Stools; Denies Abdominal Pain
Musculoskeletal: Reports No Symptoms
Physical Exam
-
General: Well Developed, Well Nourished, No Apparent Distress and Comfortable; Negative Respiratory Distress
HEENT: Normocephalic, Atraumatic and Moist Mucous Membranes; Negative Oxygen
Respiratory: Clear to Auscultation; Negative Wheezes, Rales or Rhonchi
Cardiac: Regular Rhythm and S1/S2; Negative Murmur
GI: Soft, Nontender, Nondistended and Normal Bowel Sounds; Negative Organomegaly
Musculoskeletal: No Clubbing, No Cyanosis and No Edema
Skin: Negative Rash
Neuro: Awake, AO x 3, No Motor Deficits and Nonfocal/Grossly Intact
Psych: Calm
[2023-10-02] MEDS: D5/0.45%NSS with KCL 20 MEQ 1000 IV (10:25)
[2023-10-02 11:00] VITALS: BP 93/53
[2023-10-02 11:39] LABS: Hemoglobin 8.6 g/dL (12.0-16.0)
[2023-10-02 13:33] LABS: Iron 94 ug/dl (37-170)
[2023-10-02 13:42] LABS: Percent Saturation 29 % (20-50); Total Iron Binding Capacity 317 ug/dl (265-497)
[2023-10-02] MEDS: FERRLECIT 110 MG IV (14:29)
[2023-10-02 15:00] VITALS: BP 124/59
[2023-10-02 16:22] LABS: Ferritin 24.6 ng/ml (11.1-264.0)
[2023-10-02 16:51] LABS: Hemoglobin 8.8 g/dL (12.0-16.0)
--- NOTE | 2023-10-02 16:55 | CM ---
Alert awake oriented patient who lives with MARK Lozano in a 1 story home with 3 step to enter. She is independent in driving and all activities of daily living.Offered VN she declined. No DME.
No SNF/VN hx
Pharmacy [facility]
PCP Dr Mckeon
PLAN Home no needs
[2023-10-02] MEDS: MIRALAX 119 GRAMS PO (18:43)
[2023-10-02 19:36] VITALS: BP 111/58
[2023-10-02] MEDS: NSS (PRESERVATIVE FREE) 10 ML IV (20:25)
[2023-10-02] MEDS: PROTONIX IV 40 MG IV (20:25)
[2023-10-02] MEDS: MYLICON DROPS PO (20:42)
[2023-10-02] MEDS: MYLICON DROPS 40 MG PO (21:56)
[2023-10-02] MEDS: TYLENOL 650 MG PO (23:15)
[2023-10-02] MEDS: BENADRYL 25 MG PO (23:15)
[2023-10-02 23:47] VITALS: BP 103/41
[2023-10-03] VITALS (8 sets, daily range): BP systolic 97–128; BP diastolic 45–72; BMI 24.2
[2023-10-03] MEDS: D5/0.45%NSS with KCL 20 MEQ 1000 IV ×2 (03:37→14:04)
[2023-10-03 06:25] LABS: % Basophils 0.8 % (0-2); % Eosinophils 2.9 % (0-6); % Immature Granulocytes 0.5 % (0-0.5); % Lymphocytes 15.1 % (20.5-51.1); % Monocytes 8.9 % (1.7-9.3); % Neutrophils 71.8 % (42.2-75.2); Absolute Basophils 0.1 10^3/uL (0-0.2); Absolute Eosinophils 0.2 10^3/uL (0-0.7); Absolute Monocytes 0.6 10^3/uL (0.1-0.6); Absolute Neutrophils 4.7 10^3/uL (1.4-6.5); Hematocrit 28.1 % (37.0-47.0); Mean Corpuscular Hgb 29.9 pg (27.0-31.0); Mean Corpuscular Volume 93.4 fL (81.0-99.0); Mean Platelet Volume 9.4 fL (7.4-10.4); Nucleated Red Blood Cells % 0 %; Platelet Count 153 10^3/uL (130-400); Red Blood Cell Count 3.01 10^6/uL (4.20-5.40); Red Cell Dist. Width 18.9 % (11.5-14.5); White Blood Cell Count 6.5 10^3/uL (4.8-10.8)
[2023-10-03 06:40] LABS: Blood Urea Nitrogen 11 mg/dl (7-17); Calcium 8.6 mg/dl (8.4-10.2); Carbon Dioxide 22 mmol/L (22-30); Chloride 98 mmol/L (98-107); Estimated Creatinine Clearance 67 ml/min; Glucose 106 mg/dl (70-99); Magnesium 1.9 mg/dl (1.6-2.3); Potassium 3.4 mmol/L (3.5-5.1); Sodium 126 mmol/L (135-145); eGFR > 60.00
[2023-10-03] MEDS: PROTONIX IV 40 MG IV (07:52)
[2023-10-03] MEDS: NSS (PRESERVATIVE FREE) 10 ML IV (07:52)
[2023-10-03] MEDS: BETAPACE 120 MG PO ×2 (07:53→19:55)
[2023-10-03] MEDS: TOPROL XL 75 MG PO (07:55)
--- NOTE | 2023-10-03 12:14 | PN.CDI ---
CDI
- -
CDI:
Physician Documentation Request
Admit Date: 10/01/23 17:51
Dear Doctor Jose Maria,
Patient admitted with symptomatic anemia.
10/01 PN, 'Holding Eliquis in setting of symptomatic anemia/GI bleed.'
Please clarify the relationship between these conditions:
Yes, symptomatic anemia/GI bleed is associated with/ enhanced by Eliquis.
No, symptomatic anemia/GI bleed is not associated with/ enhanced by Eliquis but it is due to ___. (Please specify)
Unable to determine
Use of terms such as suspected, likely, concern for, or probable (associated with a specific diagnosis that is being evaluated, monitored, or treated as if it exists) are acceptable and can be coded in the inpatient setting, when documented at the
time of discharge.
Thank you,
Eleonora ZEEN,RN,CCDS
CDI Specialist
Available via [place] text
Please use your independent medical judgment in providing your response.
[2023-10-03] MEDS: FERRLECIT 110 MG IV (14:01)
--- NOTE | 2023-10-03 17:37 | W.PN.HOSP.TC ---
Today's Communication/Plan
-
recheck labs in AM
If Hgb stable, potential dc
Eliquis on hold
Assessment / Plan
Assessment / Plan
# Shortness of breath likely secondary to symptomatic anemia
Hgb 7.1--transfused 1 unit PRBC-->9.2-->8.3-->9.0
#Suspected gastrointestinal small bowel bleed (angioectasia, was to have a capsule endoscopy as outpatient on 10/03) versus upper GI bleed
EGD:- Normal esophagus.
- A Mary fundoplication was found. The wrap appears
intact. Dilated. A small amount of blood was in the
stomach after dilation, no active bleeding seen.
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
bleeding.
- Normal examined duodenum.
- Successful completion of the Video Capsule
Enteroscope placemen into the stomach. Given
angulation at the pylorus could not be placed into the
duodenum.
- No specimens collected.
#KARISSA
on 08/31 Fe sat was 7%, Ferritin 9.4
will order Fe infusion
Yes, symptomatic anemia/GI bleed is associated with/ enhanced by Eliquis.
#Paroxysmal a. Fib on chronic Eliquis
Permanent Pacemaker
resumed reg diet
Hemoglobin 7.1 and was 9.3 approximately 4 weeks ago prior to discharge
Hold Eliquis
discussed with Dr. Atwood. He recommends hold on resumption of Eliquis and to be seen in office by [facility] DIRECTOR INTELLIGENCE OFFICER in 2 weeks, repeat CBC to follow visit and decision on resumption of Eliquis to follow. Also has appt with Madhu Martinez in November.
Consideration for Watchman procedure following eval in office
Started on PPI drip, then 40 mg bid, okay to change to 40 mg qAM at time of dc as per GI
Gentle IV fluids after receiving blood transfusion.
Trend H&H
GI consulted in the ER.
Based on GI eval, consider Cardio input regarding possible watchman procedure. Pt known to [facility]
#Paroxysmal atrial fibrillation status post PVI
#Sick sinus syndrome status post pacemaker implantation
Holding Eliquis in setting of symptomatic anemia/GI bleed. Patient says she was supposed to stop starting tomorrow for capsule endoscopy
Patient on both metoprolol and sotalol. Outpatient cardiology follow-up
Monitor on telemetry
#History of CVA
Eliquis to be to be held
#Moderate pulmonary hypertension
Monitor oxygenation status closely
Continue with diuretics if blood pressure can tolerate it in the morning
proBNP 2400
BP 98-124/52-69
#HLD
Cont statin
#Hypokalemia
Potassium 2.9-->3.2-->3.4. Was give 40 mEq on admission and additional 20 mill later
IVF ordered with K supplement, will stop and recheck labs in AM
DVT prophylaxis SCDs in the setting of GI bleed
Full code
Anticipated Discharge: Within 24 hours
Subjective/Interval History
-
Date of Service: October 03, 2023
Awake, alert
Objective Data
-
Labs:
Laboratory Results
10/03/23
06:03
WBC 6.5
Hgb 9.0 L
Hct 28.1 L
Plt Count 153
Sodium 126 L D
Potassium 3.4 L
Chloride 98
Carbon Dioxide 22
BUN 11
Creatinine 0.6
Glucose 106 H
Calcium 8.6
Vital Signs:
Vital Signs
Temp Pulse Resp BP Pulse Ox
97.9 F 61 16 124/69 100
10/03/23 16:20 10/03/23 16:20 10/03/23 16:20 10/03/23 16:20 10/03/23 16:20
I&O
10/02/23 10/03/23 10/04/23
06:59 06:59 06:59
Intake Total 730 / 730 2160 / 2160 240 / 240
Balance 730 / 730 2160 / 2160 240 / 240
Review of Systems
-
History Source: Patient, Physician (reviewed with GI, RN CASE MANAGEMENT) and Coordinated Provider
Constitutional: Denies Fever
Respiratory: Reports No Symptoms and Trouble Breathing (was sob with exertion prior to admission); Denies Cough
Cardiac: Reports No Symptoms; Denies Chest Pain
Abdomen/GI: Reports Black Stools; Denies Abdominal Pain
Musculoskeletal: Reports No Symptoms
Physical Exam
-
General: Well Developed, Well Nourished, No Apparent Distress and Comfortable; Negative Respiratory Distress
HEENT: Normocephalic, Atraumatic and Moist Mucous Membranes; Negative Oxygen
Respiratory: Clear to Auscultation; Negative Wheezes, Rales or Rhonchi
Cardiac: Regular Rhythm and S1/S2; Negative Murmur
GI: Soft, Nontender, Nondistended and Normal Bowel Sounds; Negative Organomegaly
Musculoskeletal: No Clubbing, No Cyanosis and No Edema
Skin: Negative Rash
Neuro: Awake, AO x 3, No Motor Deficits and Nonfocal/Grossly Intact
Psych: Calm
[2023-10-03] MEDS: MIRALAX 17 GRAMS PO (19:51)
[2023-10-03] MEDS: BENADRYL 25 MG PO (22:07)
[2023-10-03] MEDS: TYLENOL 650 MG PO (22:07)
[2023-10-04 03:40] VITALS: BP 96/46
[2023-10-04 05:53] LABS: % Basophils 0.5 % (0-2); % Eosinophils 2.3 % (0-6); % Immature Granulocytes 0.4 % (0-0.5); % Lymphocytes 17.4 % (20.5-51.1); % Monocytes 8.6 % (1.7-9.3); % Neutrophils 70.8 % (42.2-75.2); Absolute Eosinophils 0.1 10^3/uL (0-0.7); Absolute Monocytes 0.5 10^3/uL (0.1-0.6); Hemoglobin 8.3 g/dL (12.0-16.0); Mean Corp Hgb Conc. 31.9 g/dL (33.0-37.0); Mean Corpuscular Hgb 30.1 pg (27.0-31.0); Mean Corpuscular Volume 94.2 fL (81.0-99.0); Mean Platelet Volume 9.7 fL (7.4-10.4); Nucleated Red Blood Cells % 0 %; Platelet Count 145 10^3/uL (130-400); Red Blood Cell Count 2.76 10^6/uL (4.20-5.40); Red Cell Dist. Width 18.8 % (11.5-14.5); White Blood Cell Count 5.6 10^3/uL (4.8-10.8)
[2023-10-04 06:00] VITALS: BMI 24.2
[2023-10-04 06:18] LABS: Blood Urea Nitrogen 7 mg/dl (7-17); Calcium 8.6 mg/dl (8.4-10.2); Carbon Dioxide 24 mmol/L (22-30); Chloride 104 mmol/L (98-107); Estimated Creatinine Clearance 67 ml/min; Glucose 87 mg/dl (70-99); Potassium 3.3 mmol/L (3.5-5.1); Sodium 131 mmol/L (135-145); eGFR > 60.00
--- NOTE | 2023-10-04 06:39 | W.PN.GI.CBS2 ---
Today's Communication / Plan
-
See assessment and plan for details.
Assessment / Plan
-
1. Acute GI bleeding: With negative workup previously including EGD and colonoscopy, in the setting of Eliquis, now with brown stool, hemoglobin about where to be expected. 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
the source in the setting of anticoagulation though unclear. VCE placed in the stomach, will await those results. Pending that may consider APC in the future. Would continue iron supplementation and close monitoring. Will continue PPI daily for
now. If indicated would be okay to restart anticoagulation from a GI standpoint in a week with close monitoring.
2. Dysphagia: Secondary to fundoplication, status post dilation yesterday.
Subjective
Subjective
Date of Service: October 04, 2023
Patient feeling okay, some mild dyspnea on exertion. Had small brown bowel movement, no abdominal pain, nausea or vomiting. Tolerated liquids without difficulty.
Objective
Data Reviewed
Laboratory Data:
Laboratory Results
10/04/23 05:19
10/04/23 05:19
Laboratory Results
PT 17.8 Sec (11.4-14.6) H 10/02/23 04:51
INR 1.49 10/02/23 04:51
APTT 33.7 Sec (23.4-35.0) 10/02/23 04:51
Magnesium 1.9 mg/dl (1.6-2.3) 10/03/23 06:03
Vital Signs and I&O:
Vital Signs
Temp Pulse Resp BP Pulse Ox
98.0 F 61 18 96/46 98
10/04/23 03:40 10/04/23 03:40 10/04/23 03:40 10/04/23 03:40 10/04/23 03:40
I&O
10/02/23 10/03/23 10/04/23
06:59 06:59 06:59
Intake Total 730 / 730 2160 / 2160 480 / 480
Balance 730 / 730 2160 / 2160 480 / 480
Physical Exam
Physical Exam
General: NAD
Abdomen: normal bowel sounds, soft, no tenderness, no masses or bruits, no ascites
[2023-10-04] MEDS: PROTONIX 40 MG PO (08:07)
[2023-10-04] MEDS: BETAPACE 120 MG PO (08:07)
--- NOTE | 2023-10-04 08:07 | PN.CDI ---
CDI
- -
CDI:
Physician Documentation Request
Admit Date: 10/01/23 17:51
Dear Doctor Jose Maria,
Patient admitted with symptomatic anemia.
Na levels documented below:
Patient received IV fluids.
Laboratory Tests
10/02/23 10/03/23 10/04/23
04:51 06:03 05:19
Sodium 134 L 126 L D 131 L
Based on the above, could you clarify in the progress notes, the appropriate diagnosis, if significant, that supports the above abnormalities and additional evaluation, monitoring and/or treatment rendered:
Hyponatremia
Insignificant abnormal lab finding
Other
Use of terms such as suspected, likely, concern for, or probable (associated with a specific diagnosis that is being evaluated, monitored, or treated as if it exists) are acceptable and can be coded in the inpatient setting, when documented at the
time of discharge.
Thank you,
Eleonora PADRON,RN,CCDS
CDI Specialist
Available via [place] text
Please use your independent medical judgment in providing your response.
[2023-10-04] MEDS: TOPROL XL 75 MG PO (08:09)
[2023-10-04 08:12] VITALS: BP 115/65
[2023-10-04 11:16] VITALS: BP 122/64
[2023-10-04] MEDS: FERRLECIT 110 MG IV (13:53)
[2023-10-04 14:20] LABS: Hematocrit 28.7 % (37.0-47.0); Hemoglobin 9.2 g/dL (12.0-16.0)
--- NOTE | 2023-10-04 16:10 | W.PN.HOSP.TC ---
Today's Communication/Plan
-
dc now
Assessment / Plan
Assessment / Plan
# Shortness of breath likely secondary to symptomatic anemia
Hgb 7.1--transfused 1 unit PRBC-->9.2-->8.3-->9.0-->9.2
#Suspected gastrointestinal small bowel bleed (angioectasia, was to have a capsule endoscopy as outpatient on 10/03) versus upper GI bleed
EGD:- Normal esophagus.
- A Mary fundoplication was found. The wrap appears
intact. Dilated. A small amount of blood was in the
stomach after dilation, no active bleeding seen.
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
bleeding.
- Normal examined duodenum.
- Successful completion of the Video Capsule
Enteroscope placemen into the stomach. Given
angulation at the pylorus could not be placed into the
duodenum.
- No specimens collected.
#KARISSA
on 08/31 Fe sat was 7%, Ferritin 9.4
will order Fe infusion
Yes, symptomatic anemia/GI bleed is associated with/ enhanced by Eliquis.
#Paroxysmal a. Fib on chronic Eliquis
Permanent Pacemaker
resumed reg diet
Hemoglobin 7.1 and was 9.3 approximately 4 weeks ago prior to discharge
Hold Eliquis
discussed with Dr. Atwood. He recommends hold on resumption of Eliquis and to be seen in office by EP TECH in 2 weeks, repeat CBC to follow visit and decision on resumption of Eliquis to follow. Also has appt with Madhu Martinez in November.
Consideration for Watchman procedure following eval in office
Started on PPI drip, then 40 mg bid, okay to change to 40 mg qAM at time of dc as per GI
Gentle IV fluids after receiving blood transfusion.
Trend H&H
GI consulted in the ER.
#Paroxysmal atrial fibrillation status post PVI
#Sick sinus syndrome status post pacemaker implantation
Holding Eliquis in setting of symptomatic anemia/GI bleed. Patient says she was supposed to stop starting tomorrow for capsule endoscopy
Patient on both metoprolol and sotalol. Outpatient cardiology follow-up
Monitor on telemetry
#History of CVA
Eliquis to be to be held
#Moderate pulmonary hypertension
Monitor oxygenation status closely
Continue with diuretics if blood pressure can tolerate it in the morning
proBNP 2400
BP 98-124/52-69
#HLD
Cont statin
#Hypokalemia
Potassium 2.9-->3.2-->3.4-->3.3. Was give 40 mEq on admission and additional 20 mill later
will order oral supplement to take post discharge
#mild hyponatremia
should be followed post dc
DVT prophylaxis SCDs in the setting of GI bleed
dc now
see dictated note
Full code
More than 30 minutes spent in discharge including
Final examination of the patient
Summarizing hospital stay
Instructions for continuing care to all relevant caregivers
Preparation of discharge records, prescriptions, and referral forms
Total time spent (in minutes): 45
Anticipated Discharge: Today
Subjective/Interval History
-
Date of Service: October 04, 2023
Objective Data
-
Labs:
Laboratory Results
10/04/23 10/04/23
05:19 14:07
WBC 5.6
Hgb 8.3 L 9.2 L
Hct 26.0 L 28.7 L
Plt Count 145
Sodium 131 L
Potassium 3.3 L
Chloride 104
Carbon Dioxide 24
BUN 7
Creatinine 0.6
Glucose 87
Calcium 8.6
Vital Signs:
Vital Signs
Temp Pulse Resp BP Pulse Ox
97.5 F 62 16 122/64 100
10/04/23 11:16 10/04/23 11:16 10/04/23 11:16 10/04/23 11:16 10/04/23 11:16
I&O
10/03/23 10/04/23 10/05/23
06:59 06:59 06:59
Intake Total 2160 / 2160 480 / 480
Balance 2160 / 2160 480 / 480
[2023-10-04 16:17] VITALS: BP 120/68
--- NOTE | 2023-10-04 16:41 | CM ---
Met with patient at bedside; declined offer for home health VN
IMM benefit explained; form signed @ 1640
Transport home will be provided by significant other, Blake
Plan: discharge to home today; no needs
--- NOTE | 2023-10-04 18:41 | W.DS.TRANS ---
DC Summary - Unit Leader
-
Discharge Instructions:
Sleep Apnea Risk Low
Discharge Diagnosis/Procedures Gastrointestinal Bleed
Diet Regular,No added salt,Restrict fluids to 64 oz
Activity No restrictions
Driving Restrictions As prior to admission
Bathing Restrictions None
Blood Work CBC, BMP in 1 week
Instructions:
Stand-Alone Forms:
Changes to Home Medications: Yes
Discharge Medications:
DC Medications w/original date entered in [facility]
atorvastatin 20 mg tablet 20 mg PO HS High cholesterol 10/09/14
sotalol 120 mg tablet 120 mg PO Q12H arrhythmia #60 tabs 02/23/22
furosemide 80 mg tablet 160 mg PO DAILY Fluid Retention/Swelling 09/01/23
guar gum 1 gram tablet 2 g PO BID Supplement ##0 09/01/23
metoprolol succinate 50 mg tablet,extended release 24 hr 50 mg PO HS Atrial fibrillation 09/01/23
metoprolol succinate 50 mg tablet,extended release 24 hr 75 mg PO DAILY Atrial fibrillation 09/01/23
aspirin 81 mg capsule 81 mg PO DAILY #30 caps 10/04/23
pantoprazole 40 mg tablet,delayed release (Protonix) 40 mg PO DAILY #30 tabs 10/04/23
potassium chloride 20 mEq tablet,extended release(part/cryst) 20 meq PO TID Electrolyte Repletion #0 tabs 10/04/23
Home Medication Changes
increase Potassium to tid
stop Eliquis
resume ECAspirin 81 mg daily
stop Iron supplement
resume daily Protonix
Pending Results: No
== END 2023-10-04 17:38 | disposition home or self-care (01) | DRG 813 ==
LOC: 3 WEST ACU 17:51
PROVIDERS: Internal Medicine Gastroenterology; Nurse Practitioner Family; ADMITTING PHYSICIAN Hospitalist; ATTENDING PHYSICIAN Internal Medicine; CONSULT PHYSICIAN Internal Medicine Gastroenterology; EMERGENCY PHYSICIAN Emergency Medicine; FAMILY PHYSICIAN Family Medicine
PROC: 30233N1 Transfusion of Nonautologous Red Blood Cells into Peripheral Vein, Percutaneous Approach (ICD-10-PCS; 2023-10-01)
PROC: 0DJ08ZZ Inspection of Upper Intestinal Tract, Via Natural or Artificial Opening Endoscopic (ICD-10-PCS; 2023-10-03)
DX: D68.32 Hemorrhagic disorder due to extrinsic circulating anticoagulants (principal); D62 Acute posthemorrhagic anemia; E87.1 Hypo-osmolality and hyponatremia; K92.2 Gastrointestinal hemorrhage, unspecified; I48.0 Paroxysmal atrial fibrillation; D50.9 Iron deficiency anemia, unspecified; Z95.0 Presence of cardiac pacemaker; I49.5 Sick sinus syndrome; I27.20 Pulmonary hypertension, unspecified; E87.6 Hypokalemia; Z79.01 Long term (current) use of anticoagulants; E78.00 Pure hypercholesterolemia, unspecified
CPT/HCPCS: 71046; 80048; 82728; 83540; 83550; 83735; 83880; 85014; 85018; 85025; 85610; 85730; 86850; 86900; 86901; 86920; 93005; 99285; C1726; J2916; P9016

== ENCOUNTER → 2023-11-08 11:42 | Outpatient (REF) | payer OTHER, SELFPAY | LOC: RAD 11:42 | PROVIDERS: ATTENDING PHYSICIAN Physician Assistant; FAMILY PHYSICIAN Family Medicine | DX: K31.819 Angiodysplasia of stomach and duodenum without bleeding (principal) | CPT/HCPCS: 71260; 74160; Q9967 ==

== ENCOUNTER → 2023-12-20 09:37 | Outpatient (REF) | payer OTHER, SELFPAY ==
--- NOTE | 2023-12-04 10:32 | WATCHMAN ---
Watchman
Wathcman Procedure
Referred by:: Maxx Martinez
Date of Referral:: 11/16/23
[id number] Score
Age in Years (65=0, 65-74=1, >/=75=2): 65-74
Sex (Female=+1): Female
Congestive Heart Failure History (Yes=+1): Yes
Hypertension History (Yes=+1): No
Stroke/TIA/Thromboembolism History (Yes=+2): Yes
Vascular Disease History (Yes=+1): No
Diabetes Mellitus (Yes=+1): No
Score: 5
Anticoagulation Recommendations: Recommend anticoagulation (as validated in nonvalvular fib)
HASBLED Score
Hypertenstion (uncontrolled >160mmHG systolic): No
Renal disease (dialysis, transplant, Cr >2.26mg/dL or >200umol/L): No
Liver disease (cirrhosis or bilirubin >2x normal w/ AST/ALT/AP >3x normal: No
Stroke history: Yes
Prior major bleeding or predisposition to bleeding: Yes
Labile INR(unsable/high INRs,time in therapeutic range <60%): No
Age >65: Yes
Medication usage predisposing to bleeding(ASA, NSAIDS): No
Alcohol use (>/= 8 drinks/week): No
Score: 3
Risk: Alternatives to anticoagulation should be considered: Patient is at high risk for major bleeding
Electrocardiogram
Interpretation: abnormal
Heart Rate: 62
Rate: normal
Rhythm: sinus and ventricular paced
Physician Visits
Dispatcher Bus And Trolley:: Michelle
Date of Visit:: 11/16/23
Primary Singing Messenger:: Maxx Martinez
Date of Visit:: 11/16/23
PCP:: Luly Mckeon
Plan
Plan:: 11/16/2023: Consult received from Dr. Martinez for Watchman referral.
11/17/2023: Called and left voicemail with name and contact information. Patient returned call and set up for CT scan on 12/11/2023. Request sent to [facility] office for pre-authorization for CT scan.
== END ==
LOC: RAD 09:37
PROVIDERS: ATTENDING PHYSICIAN Internal Medicine Cardiovascular Disease; FAMILY PHYSICIAN Family Medicine
DX: I48.0 Paroxysmal atrial fibrillation (principal)
CPT/HCPCS: 75572; Q9967

== ENCOUNTER 2024-01-30 08:39 | Outpatient (RCR) | payer OTHER, SELFPAY ==
[2024-01-23 17:38] LABS: Hematocrit 22.7 % (37.0-47.0); Hemoglobin 7.7 g/dL (12.0-16.0); Mean Corp Hgb Conc. 33.9 g/dL (33.0-37.0); Mean Corpuscular Hgb 31.7 pg (27.0-31.0); Mean Corpuscular Volume 93.4 fL (81.0-99.0); Mean Platelet Volume 9.3 fL (7.4-10.4); Platelet Count 217 10^3/uL (130-400); Red Blood Cell Count 2.43 10^6/uL (4.20-5.40); Red Cell Dist. Width 15.9 % (11.5-14.5); White Blood Cell Count 7.7 10^3/uL (4.8-10.8)
[2024-01-26 09:25] VITALS: BP 108/53
[2024-01-26 09:42] VITALS: BP 108/53
[2024-01-26 09:59] VITALS: BP 137/54
[2024-01-26 13:11] VITALS: BP 120/68
[2024-01-30 08:40] VITALS: BP 122/68
[2024-01-30] MEDS: TYLENOL 650 MG PO (08:59)
[2024-01-30] MEDS: VENOFER 110 MG IV (09:00)
[2024-01-30 10:10] VITALS: BP 112/68
== END 2024-01-30 12:49 | disposition home or self-care (01) ==
LOC: OID 08:39
PROVIDERS: ATTENDING PHYSICIAN Internal Medicine Gastroenterology; FAMILY PHYSICIAN Family Medicine
DX: D50.9 Iron deficiency anemia, unspecified (principal)
CPT/HCPCS: 36415; 36430; 85027; 86850; 86900; 86901; 86920; 96365; J1756; P9016

== ENCOUNTER 2024-02-20 05:59 | Inpatient (IN) | payer OTHER, SELFPAY ==
[2024-02-15 14:40] LABS: % Eosinophils 1.9 % (0-6); % Immature Granulocytes 0.3 % (0-0.5); % Monocytes 8.9 % (1.7-9.3); % Neutrophils 71.9 % (42.2-75.2); Absolute Basophils 0.1 10^3/uL (0-0.2); Absolute Eosinophils 0.1 10^3/uL (0-0.7); Absolute Monocytes 0.6 10^3/uL (0.1-0.6); Absolute Neutrophils 4.4 10^3/uL (1.4-6.5); Hematocrit 30.4 % (37.0-47.0); Mean Corp Hgb Conc. 32.9 g/dL (33.0-37.0); Mean Corpuscular Hgb 31.3 pg (27.0-31.0); Mean Platelet Volume 9.4 fL (7.4-10.4); Nucleated Red Blood Cells % 0 %; Platelet Count 214 10^3/uL (130-400); White Blood Cell Count 6.2 10^3/uL (4.8-10.8)
[2024-02-15 14:53] LABS: INR 1.07; PT 13.9 Sec (11.4-14.6)
[2024-02-15 14:57] LABS: ALT (SGPT) 19 U/L (0-35); AST (SGOT) 40 U/L (14-36); Alkaline Phosphatase 79 U/L (38-126); Blood Urea Nitrogen 17 mg/dl (7-17); Carbon Dioxide 26 mmol/L (22-30); Chloride 101 mmol/L (98-107); Glucose 173 mg/dl (70-99); Potassium 3.1 mmol/L (3.5-5.1); Sodium 141 mmol/L (135-145); Total Bilirubin 0.5 mg/dl (0.2-1.3); Total Protein 6.8 g/dl (6.3-8.2); eGFR 53.06
--- NOTE | 2024-02-19 19:08 | HPS.HSE ---
Family Physician
-
Family Physician: Luly Mckeon
Chief Complaint
-
Watchman
History of Present Illness
74 yo female with past medical history of paroxysmal atrial fibrillation who is currently maintained on Metoprolol as Sotalol and was previously anticoagulated with Eliquis. She has had recurrent hospital admissions due to iron deficiency anemia
secondary to GI bleed. GI workup revealed gastric antral vascular ectasia as potential source. She also has colonic polyps and GERD. Laproscopic Mary fundoplication was performed in 2012 due to her paraesophageal hernia causing uncontrolled
reflux and esophageal and gastric erosion. Hgb has impoved during periods of holding Eliquis, She has had one prior PVI, but failed to maintain long-term NSR. She has also suffered a TIA, and multifocal R hemispheric CVA on Brain MRI 2012. She
denies deficits. She has HTN, HLD, mild pulmonary HTN, and slightly worsened renal impairment placing her in CKD 3 range. Her CHADS VASc score is 5 and her HAS-BLED score is 6,making her both a high risk for both a thromboembolic events as well
as bleed. We propose Watchman device given potential need for discontinuation of anticoagulant.
Medical History
Past Medical History
Past Medical History: Reports Other (see below)
Additional Past Medical History:
PAF
SSS-pacemaker
HTN
HLD
Pulmonary HTN-mild 48mmHg by echo 01/2023
TIA
CVA -multifocal R hemispheric on Brain MRI 2012
Iron deficiency anemia
GAVE
GERD
Colonic polyps
Osteoporosis
CKD 3
Raynauds w/o vascular involvement
Past Surgical History: Reports Other (see below)
Additional Past Surgical History:
PVI
R foot
Mary fundoplicaton
pacemaker
Social History
Tobacco: Other (second hand exposure)
Alcohol: Daily (3)
Living: With Family
Family History
Family History: Not pertinent
Allergies / Home Medications
Allergies reflects when Allergies were last updated in [facility].
Home Medications with original date entered in [facility]
Allergy/Medication List:
ALLERGY
Naproxen
NSAIDs
Review of Systems
-
A 12 point ROS was completed and negative except as noted: Yes
Physical Exam
Physical Exam
General: Well Developed and Well Nourished
HEENT: NormoCephalic and Atraumatic
Respiratory: Clear
Cardiac: Regular Rhythm
GI: Soft, Non Tender and Normal Bowel Sounds
Musculoskeletal: No Edema
Neuro: AO x 3, No Motor Deficits, Nonfocal/grossly intact and Cranial Nerves Intact
Laboratory Results
-
02/15/24 13:47
02/15/24 13:47
Laboratory Results
PT 13.9 Sec (11.4-14.6) 02/15/24 13:47
INR 1.07 02/15/24 13:47
Total Bilirubin 0.5 mg/dl (0.2-1.3) 02/15/24 13:47
AST 40 U/L (14-36) H 02/15/24 13:47
ALT 19 U/L (0-35) 02/15/24 13:47
Alkaline Phosphatase 79 U/L (38-126) 02/15/24 13:47
Impression/Plan
-
IMPRESSION/PLAN:
Watchman
[2024-02-20] VITALS (26 sets, daily range): BP systolic 84–128; BP diastolic 47–97; BMI 23.4
[2024-02-20] MEDS: NSS 500 IV (07:08)
[2024-02-20 08:53] LABS: ACT-LR - POC 245 Seconds (116-155)
--- NOTE | 2024-02-20 09:22 | WATCHMAN.MD ---
Watchman Implant
-
WATCHMAN LEFT ATRIAL APPENDAGE CLOSURE DEVICE REPORT
Date: February 20, 2024
Primary Care Provider: Dr. Luly Mckeon
History:
She has a complex medical history which includes elevated thromboembolic risk given history of atrial fibrillation which is paroxysmal with a CHADSVASc score equal to 5 (CHF, CVA, Age, Female). Additionally she is at high bleeding risk with
recurrent severe GI bleeding requiring blood transfusions. In the office setting we had a long discussion regarding management options. Additionally today we discussed management options. The decision to move forward with watchman implantation is
based on shared decision making involving the patient's participation and review of treatment options while incorporating the patient's values and preferences.
Watchman Team:
SHARRI: Avlino Schneider M.D.
Transseptal band aid machine operator: Pippa Shields M.D.
Implanter: Maxx Martinez M.D.
Procedure: Watchman left atrial appendage closure.
The patient was placed under general anesthesia by anesthesia.
A SHARRI probe was placed.
A 10 Fr sheath was placed in the right femoral vein for ICE.
16 Fr sheath was placed via the right femoral vein to allow access for the watchman sheath
LEONA type: Anterior chicken wing
Heparin was administered to goal ACT 350-400 seconds. Fluid bolus was given.
Intracardiac ultrasound catheter was placed in the right atrium identifying the intraatrial septum for transseptal puncture.
Transseptal puncture was performed By Dr Pippa Shields. This entailed advancing a sheath with dilator into the superior vena cava and withdrawing both (monitoring intracardiac ultrasound, fluoroscopy and tip pressure) with the tip oriented toward
the atrial septum. The fossa ovalis was engaged (indicated by sudden displacement of the sheath tip as well as tenting of the fossa seen on intracardiac ultrasound). AcTeleborder transseptal system was used. Left atrial catheter position was confirmed
by echocardiographic imaging, pressure monitoring (LA mean pressure 19 mm Hg) and fluoroscopy. The sheath was advanced over the dilator and positioned in the left atrium.
Dr Maxx Martinez positioned and deployed the Watchman device.
The 14 [place]an watchman access system sheath double curve was substituted for the transeptal sheath. A 5 Pal[place]an curved pigtail was then substituted for the guidewire through the watchman sheath to the ostium of the left atrial appendage. The 5
Palauan pigtail was advanced into the left atrial appendage and angiography was performed. This allowed additional measurements assessing left atrial appendage ostium size and LEONA morphology.
The pigtail catheter was removed from the access sheath. A 24 mm Watchman device was flushed and then placed into the watchman access sheath and advanced through the sheath. The Watchman was clamped into the sheath. The device was deployed into
the left atrial appendage. With initial deployment, the device was not well-seated resulting in recapture of the device and redeployment.
The PASS criteria were met. The stability tug test was performed and passed. Angiography and transesophageal echocardiogram revealed no leaks nor jets. The position was confirmed on angiography and transesophageal echo and there were no
significant shoulders. Compression ranges from 15% to 20 %.
After meeting the PASS release criteria the device was released into the left atrial appendage.
The watchman access sheath was then removed through the transseptal into the IVC. Figure 8 suture closures were performed at the site of the femoral venous puncture and the sheath as it was removed.
Impression:
Transeptal puncture by Dr Shields.
SUCCESSFUL DEPLOYMENT OF 24 mm WATCHMAN LEFT ATRIAL APPENDAGE CLOSURE DEVICE by Dr Maxx Martinez.
Recommended anticoagulation strategy for this specific patient is:
Will plan for half Dose DOAC (Eliquis 2.5 mg twice daily) for 3-6 months.
Transesophageal echocardiogram at 3 months post procedure will be used to assess for any device related thrombus, assess for any leaks, and aid in the decision making regarding altering anticoagulation/antiplatelet recommendations.
At post procedure SHARRI leaks > 5mm are significant and require chronic full anticoagulation if possible or consideration for leak closure. Keisha-device leaks between 3 and 5 mm may also carry an increased risk. These patients will need individualized
risk assessment and discussion with Watchman team. Leaks < 3 mm are generally considered non-significant. With leak of any size suggestion is to consider repeat SHARRI 12 mo out from implant.
cc: Dr. Luly Mckeon
[2024-02-20] MEDS: TYLENOL 650 MG PO ×2 (09:52→15:07)
[2024-02-20] MEDS: ANESTHETIC LOZENGE 1 LOZENGE PO ×2 (09:52→13:21)
[2024-02-20] MEDS: LASIX 80 MG IV (09:53)
--- NOTE | 2024-02-20 13:41 | PTCARENOTE ---
Pt now with persistent cough, rls and wheezing present, SOB now causing difficulty completing sentences . O2 put on at 2 LPM for sats dropping to 80's. Norah PH[employer] PRINT SPECIALIST notified. Resp tx and addl Lasix ordered. Total urine output after 80 mg IV Lasix 400
mls clear urine so far. Pt careful and guarding groin with coughing. Dressing CDI since stitch removed ~50 minutes ago.
[2024-02-20] MEDS: VENTOLIN NEBULES 1.25 MG INH (13:48)
[2024-02-20] MEDS: LASIX 20 MG IV (13:49)
[2024-02-20] MEDS: KCL 40 MEQ PO (13:54)
--- NOTE | 2024-02-20 13:58 | PTCARENOTE ---
Resp tx and addl Lasix 20 mg IV administered. Plan of care reviewed with pt and family.
[2024-02-20] MEDS: ELIQUIS 2.5 MG PO (15:05)
--- NOTE | 2024-02-20 15:40 | CON.PUL ---
Consultation
Consultation Request
Date/Time Consultation Requested: 02/20/2024
Date/Time Consultation Performed: 02/20/2024
Requesting Provider: Dr. Martinez
Performing Provider: Dr. Brian Hollis
Reason for Consultation: acute respiratory insufficiency/bronchospasm
Medical History
-
History of Present Illness:
77-year-old woman with a past medical history of paroxysmal atrial fibrillation on anticoagulation and beta-blockers. Recent hospital stay for GI bleed and iron deficiency anemia. Prior GI evaluation revealed vascular ectasia as potential source.
Anticoagulation was on hold at that time.
She has history of atrial fibrillation with a status post PVI who failed to sustain normal sinus rhythm.
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
Underwent Watchman procedure due to inability to maintain anticoagulation on 02/19/2024.
Prior to the procedure patient states that she did not have any significant shortness of breath, cough, phlegm production. Was not taking any inhalers but
Has not seen pulmonary since 2020 because she was doing well
Past Medical History
Past Medical History: Other (See assessment and plan section)
Social History
Tobacco: Other (Secondhand)
Alcohol: Daily
Living: With Family
Family History
Family History: Reviewed & Not Pertinent
Allergies / Home Medications
Allergies
Allergy/AdvReac Type Severity Reaction Status Date / Time
naproxen [Naproxen] Allergy 'heart Verified 02/20/24 06:53
beats
faster'
NSAIDS (Non-Steroidal Allergy heart races Verified 02/20/24 06:53
Anti-Inflamma
Home Medications
�Medication �Instructions �Recorded �Confirmed �Last Taken �Type
atorvastatin 20 mg tablet 20 mg PO HS High cholesterol 10/09/14 02/20/24 02/19/24 21:00 History
sotalol 120 mg tablet 120 mg PO Q12H arrhythmia #60 tabs 02/23/22 02/20/24 02/19/24 21:00 Rx
furosemide 80 mg tablet 120 mg PO DAILY Fluid 09/01/23 02/20/24 02/19/24 09:00 History
Retention/Swelling
metoprolol succinate 50 mg 50 mg PO HS Atrial fibrillation 09/01/23 02/20/24 02/19/24 21:00 History
tablet,extended release 24 hr
metoprolol succinate 50 mg 75 mg PO DAILY Atrial fibrillation 09/01/23 02/20/24 02/19/24 09:00 History
tablet,extended release 24 hr
potassium chloride 20 mEq 20 meq PO TID Electrolyte 10/04/23 02/20/24 02/19/24 21:00 Rx
tablet,extended release(part/cryst) Repletion #0 tabs
Vitamin C 1 tab PO DAILY 01/26/24 02/14/24 02/14/24 History
Bifidobacterium infantis 4 mg 4 mg PO DAILY 01/31/24 02/20/24 02/19/24 09:00 History
capsule (Align)
Vitamin D3 1 cap PO DAILY 01/31/24 02/14/24 02/14/24 History
acetaminophen 650 mg 650 mg PO Q12H PRN pain 01/31/24 02/20/24 02/16/24 08:00 History
tablet,extended release
diphenhydramine 25 1 tab PO HS PRN sleep 01/31/24 02/14/24 Unknown History
mg-acetaminophen 500 mg tablet
(Tylenol PM Extra Strength)
multivitamin 1 tab PO DAILY 01/31/24 02/14/24 02/14/24 History
omeprazole 40 mg capsule,delayed 40 mg PO DAILY 01/31/24 02/20/24 02/19/24 09:00 History
release
vitamin E 1 cap PO DAILY 01/31/24 02/20/24 02/17/24 09:00 History
apixaban 2.5 mg tablet (Eliquis) 2.5 mg PO BID #60 tabs 02/20/24 Unknown Rx
prednisone 10 mg tablet 10 mg PO BID 02/20/24 02/20/24 02/19/24 16:00 History
Review of Systems
-
History Source: Patient
All other systems: Negative unless noted
Vitals / Labs / Diagnostic Testing
Vital Signs
Temp Pulse Resp BP Pulse Ox
98.0 F 60 16 123/80 88
02/20/24 12:07 02/20/24 14:15 02/20/24 14:15 02/20/24 14:31 02/20/24 14:31
Lab Data
02/15/24 13:47
02/15/24 13:47
Diagnostic Testing:
Physical Exam
-
HEENT: Normocephalic
Cardiovascular: S1/S2
Respiratory: Wheeze
GI: Soft and Non Distended
Neurology: Awake, Alert and No Motor Deficits
General: Comfortable
Assessment
-
74-year-old woman with past medical history noted. Admitted after undergoing Watchman procedure, developed respiratory distress with wheezing. Hypoxemic. Given some IV corticosteroids. We were consulted for possibility of bronchospasm on
02/20/2024. Patient states that prior to the procedure she was doing well without coughing. Patient has been transferred to the ICU.
Acute respiratory sufficiency post Watchman procedure
Chest x-ray 02/20/2024: Reviewed, to my view there is no acute abnormalities. Pacemaker in place no pneumothorax
Volume overload versus acute bronchospasm given underlying history of mild COPD/possible reactive airways
Conditions present prior admission:
Paroxysmal atrial fibrillation
History of PVI
Mild COPD: [facility] survivor/secondhand tobacco exposure. Cannot rule out asthmatic component
FEV1 1.59 L or 82%/FVC 93%. Ratio 68%. 03/01/2021.
Seen by Dr. Akbar last in 2020 - not on inhalers.
GERD history of Mary fundoplication
Sick sinus syndrome status post pacemaker
Hypertension
Chronic anemia
Hyperlipidemia
Pulmonary hypertension on echocardiogram 01/2023
Prior negative sleep study but patient had insomnia at that time.
Prior VQ scan many years ago negative.
Asymptomatic in the past
History of TIA
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
Iron deficiency anemia
Angiectasia-status post EGD
History of colon polyps
Osteoporosis
Chronic kidney disease stage III
?Positive MAURICIO in the past.
History of Raynaud's phenomena without vascular involvement.
Assessment and plan:
Patient currently in the IVU, sitting out of bed. Feels better but still coughing intermittently.
Hemodynamically stable, not tachycardic.
On room air not requiring supplemental oxygen.
No exam with bibasilar crackles without bronchospasm.
Patient able to speak in full sentences, main complaint is intermittent coughing. No significant phlegm production. Seems to have improved since earlier today.
-
It is not clear whether patient had a possible aspiration event versus some degree of volume overload.
Status post diuretics
Will add DuoNebs as needed
No need for systemic corticosteroids
Monitor for fevers, chest x-ray reviewed, showed very small possible patchy left upper lobe opacity. Doubt any aspiration pneumonitis/pneumonia. Continue to observe for fevers.
Incentive spirometry
Continue symptomatic management for coughing.
-
Patient on prednisone for gout on the right index finger. Low-dose.
-
[facility] records reviewed, patient has history of mild COPD. Secondhand smoking exposure. Survivor of the [facility] events. Likely occupational exposure.
Not on inhalers.
Not very symptomatic
Mild airflow obstruction on spirometry
May need to update pulmonary function testing at some point in the outpatient setting.
-
Will continue to follow along with you.
--- NOTE | 2024-02-20 15:42 | PTCARENOTE ---
Sats improved to 98 after the addl 20 mg IV Lasix and resp tx , she can now complete sentences when speaking but continues with moist cough. Groin ecchymotic after excessive coughing fits , has needed reminders to cover groin with coughing. To
radiology at this time for a 2 view prior to IVU transfer.
--- NOTE | 2024-02-20 16:32 | CM ---
Reviewed chart. Met with Ms. Ureña to review discharge plans. She states prior to admission she resides with her significant other in a two story home with four steps to enter. She states she has a first floor set-up. She states prior to
admission she was independent with ambulation and adls. She states she does not have any DME in the home. She states she has a prescription plan. Medical work-up in progress. The discharge plan is to return home with her significant other when
medically stable.
[2024-02-20] MEDS: BETAPACE 120 MG PO (19:29)
[2024-02-20] MEDS: DELTASONE 10 MG PO (19:29)
[2024-02-20] MEDS: TOPROL XL 50 MG PO (22:03)
[2024-02-20] MEDS: LIPITOR 20 MG PO (22:03)
[2024-02-20] MEDS: KCL 20 MEQ PO (22:03)
--- NOTE | 2024-02-20 22:27 | PTCARENOTE ---
Pt. AAOX3, AV paced on the monitor, vitals stable. Right groin dressing CDI, area ecchymotic but no hematoma assessed, pedal pulse palpable. Pulse ox 96-97% on RA, pt. has nonproductive cough and B/L rhonchi but no complaints of shortness of
breath at rest. Voiding frequently without difficulty. Currently resting quietly.
--- NOTE | 2024-02-21 03:08 | DOWNTIME ---
There was a [employer] Client Transportation Clerk Downtime on 02/21/2024 from 0100 to 02/21/2024 at 0300. Downtime documentation of patient's care, including medication administrations, has been reconciled in the electronic record per guidelines. Refer to the
patient's paper chart under the miscellaneous tab to see printed paper medication records and downtime forms.
[2024-02-21 03:44] VITALS: BP 130/69
[2024-02-21 03:47] VITALS: BMI 23.0
[2024-02-21 04:25] LABS: Hematocrit 28.2 % (37.0-47.0); Hemoglobin 9.5 g/dL (12.0-16.0); Mean Corp Hgb Conc. 33.7 g/dL (33.0-37.0); Mean Corpuscular Hgb 31.6 pg (27.0-31.0); Mean Corpuscular Volume 93.7 fL (81.0-99.0); Mean Platelet Volume 8.9 fL (7.4-10.4); Platelet Count 139 10^3/uL (130-400); Red Blood Cell Count 3.01 10^6/uL (4.20-5.40); Red Cell Dist. Width 15.5 % (11.5-14.5); White Blood Cell Count 10.3 10^3/uL (4.8-10.8)
[2024-02-21 04:42] LABS: Blood Urea Nitrogen 14 mg/dl (7-17); Calcium 9.1 mg/dl (8.4-10.2); Carbon Dioxide 25 mmol/L (22-30); Chloride 102 mmol/L (98-107); Estimated Creatinine Clearance 57 ml/min; Glucose 156 mg/dl (70-99); Potassium 4.2 mmol/L (3.5-5.1); Sodium 136 mmol/L (135-145); eGFR > 60.00
[2024-02-21 07:08] VITALS: BP 98/53
--- NOTE | 2024-02-21 07:50 | PTCARENOTE ---
Assumed care of pt from prev nsg shift; Pt AAOx3 w/no c/o CP or SOB; Pt does appear to be mildy dyspneic on exertion, but pt reports 'feeling so much better than earlier'. Pt ambulating around the room & halls frequently. Pt w/VS stable w/HR 60 & BP
this AM98/53. Pt is AV paced on telemetry monitoring. Pt's R groin access site w/dressing C/D/I w/ large area of purple ecchymosis, but no signs or symptoms of bleeding or hematoma. Pt anxious for D/C to home. Awaiting further orders. Pt w/call lerma
within reach & plan of care ongoing.
--- NOTE | 2024-02-21 09:07 | W.PN.CARDCBS ---
Addendum entered and electronically signed by Maxx Martinez MD 02/21/24 10:33:
Patient seen, interviewed and examined by me.
Well-appearing, no acute distress, respiratory status is significantly improved
Regular rate and rhythm with normal S1 and S2, no S3 no S4. There is a grade 1/6 apical holosystolic murmur and no rubs. PMI is normally placed.
Lungs find mild expiratory wheezes bilaterally without rales or rhonchi.
Abdomen soft nontender nondistended with normoactive bowel sounds
Extremities show trace pretibial edema bilaterally no clubbing or cyanosis.
Neurologic exam is grossly nonfocal.
Agree with advanced practice professionals assessment and plan as noted below.
I discussed with her the findings and results from yesterday's left atrial appendage occlusion procedure. We were able to successfully deploy watchman left atrial appendage occlusion device with excellent results. She did develop some respiratory
compromise immediately after extubation. She has diuresed and has been treated with bronchodilators resulting in clinical improvement. Appreciate pulmonary consultation: Volume overload versus acute bronchospasm given underlying history of mild
COPD/possible reactive airways and recommendation for outpatient follow-up
Additionally, I reviewed with her that we have initiated Eliquis 2.5 mg twice daily. At this dose likelihood of significant bleeding complications is low and this dose appears to be adequate to prevent device related thrombus on the Watchman
device. We will plan for 3-month transesophageal echo to review seeding of the Watchman. At that point if there is no leak or an insignificant leak would plan to continue Eliquis 2.5 mg twice daily for an additional 3 months, that is a total of 6
months. Then stop anticoagulation and no need for aspirin. If there is bleeding complication then we will simply need to stop Eliquis early.
Overall she is stable for discharge to home today.
Addendum entered and electronically signed by Severo Mccann MD 02/21/24 10:24:
I saw and examined the patient.
The [employer] Architect's note was reviewed and I agree with the note.
Comment:
GEN: No distress, awake, Ox3
HEENT: supple, anicteric, mmm
LUNGS: CTA, no wheezes/rales
CV: Reg, S1/S2, 1/6 syst LSB, no gallop
ABD: soft, BS+, NT/ND
EXT: R groin ecchymosis
NEURO: Gross non-focal
SKIN: No rash
Plan:
Okay for discharge status post watchman
Eliquis 2.5 mg twice daily and stop aspirin
Follow-up SHARRI in 3 months
Original Note:
Today's Communication / Plan
-
stable for d/c home today
Impression / Plan
-
Primary care physician: Luly Mckeon MD
Primary cashier general: Maxx Martinez MD
Impression:
PAF prior PVI
Acute respiratory insufficiency post Watchman procedure
Acute on chronic diastolic HFpEF
Mild COPD
GIB/GAVE
SSS-pacemaker
HTN
HLD
Pulmonary HTN-mild 48mmHg by echo 01/2023
TIA/CVA -multifocal R hemispheric on Brain MRI 2012
Iron deficiency anemia
GERD
Colonic polyps
Osteoporosis
CKD 3a
Raynauds w/o vascular involvement
Plan:
LEONA Watchman device implant 02/19 post had acute respiratory distress with hypoxia and volume overload, cough and wheezing
Elevated LA pressures, diuresed with 100mg IV lasix
responded well to nebulizer, feels much less SOB this am, no further cough
Chest x-ray 02/20/2024: no acute abnormalities, poss acute bronchospasm vs volume overload
tele AV dual paced
resume PO lasix today
new start to OAC Eliquis 2.5 bid, stop ASA
Activity restrictions reviewed
I.S. C&DB, f/u Pulm as outpt for her RLD/COPD
f/u SHARRI in 3 mo
f/u Dr. Torres in 1 mo
stable for d/c home
Progress Note - Lap Regulator
Subjective
Date of Service: February 21, 2024
feels much better today, no further cough or SOB
Objective
Labs:
02/21/24 04:08
02/21/24 04:08
Labs
Hgb 9.5 g/dL (12.0-16.0) L 02/21/24 04:08
Hct 28.2 % (37.0-47.0) L 02/21/24 04:08
Plt Count 139 10^3/uL (130-400) D 02/21/24 04:08
PT 13.9 Sec (11.4-14.6) 02/15/24 13:47
INR 1.07 02/15/24 13:47
Sodium 136 mmol/L (135-145) 02/21/24 04:08
Potassium 4.2 mmol/L (3.5-5.1) 02/21/24 04:08
BUN 14 mg/dl (7-17) 02/21/24 04:08
Creatinine 0.7 mg/dL (0.6-1.0) 02/21/24 04:08
Glucose 156 mg/dl (70-99) H 02/21/24 04:08
Vital Signs and I&O:
Vital Signs
Temp Pulse Resp BP Pulse Ox
97.9 F 60 20 98/53 100
02/21/24 07:06 02/21/24 07:08 02/21/24 07:06 02/21/24 07:08 02/21/24 07:06
Vital Signs
Temp Pulse Resp BP Pulse Ox
97.9 F 60 20 98/53 100
02/21/24 07:06 02/21/24 07:08 02/21/24 07:06 02/21/24 07:08 02/21/24 07:06
Intake & Output
02/19/24 02/20/24 02/21/24 02/22/24
06:59 06:59 06:59 06:59
Intake Total 1929
Balance 1929
Physical Exam
Physical Exam
NAD, AOX3
S1, s2, RRR
faint bibasilar crackles, no wheeze, non labored
SNTND bsx4
R fem site mod ecchymosis, mild tenderness, soft
[2024-02-21] MEDS: KCL 20 MEQ PO (09:11)
[2024-02-21] MEDS: BETAPACE 120 MG PO (09:11)
[2024-02-21] MEDS: PROTONIX 40 MG PO (09:11)
[2024-02-21] MEDS: TOPROL XL 75 MG PO (09:12)
[2024-02-21] MEDS: DELTASONE 10 MG PO (09:12)
[2024-02-21] MEDS: ELIQUIS 2.5 MG PO (09:14)
--- NOTE | 2024-02-21 10:13 | W.PN.PUL3 ---
Today's Communication / Plan
-
Agree with discharge planning
Outpatient pulmonary follow-up at some point
Signed off
Assessment
-
74-year-old woman with past medical history noted. Admitted after undergoing Watchman procedure, developed respiratory distress with wheezing. Hypoxemic. Given some IV corticosteroids. We were consulted for possibility of bronchospasm on
02/20/2024. Patient states that prior to the procedure she was doing well without coughing. Patient has been transferred to the ICU.
Acute respiratory sufficiency post Watchman procedure
Chest x-ray 02/20/2024: Reviewed, to my view there is no acute abnormalities. Pacemaker in place no pneumothorax
Volume overload versus acute bronchospasm given underlying history of mild COPD/possible reactive airways
Conditions present prior admission:
Paroxysmal atrial fibrillation
History of PVI
Mild COPD: [facility] survivor/secondhand tobacco exposure. Cannot rule out asthmatic component
FEV1 1.59 L or 82%/FVC 93%. Ratio 68%. 03/01/2021.
Seen by Dr. Akbar last in 2020 - not on inhalers.
GERD history of Mary fundoplication
Sick sinus syndrome status post pacemaker
Hypertension
Chronic anemia
Hyperlipidemia
Pulmonary hypertension on echocardiogram 01/2023
Prior negative sleep study but patient had insomnia at that time.
Prior VQ scan many years ago negative.
Asymptomatic in the past
History of TIA
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
Iron deficiency anemia
Angiectasia-status post EGD
History of colon polyps
Osteoporosis
Chronic kidney disease stage III
?Positive MAURICIO in the past.
History of Raynaud's phenomena without vascular involvement.
Assessment and plan:
Clinically improved
Symptoms for the most part have resolved
Lung exam showed clear lungs. Crackles have resolved.
Cough is significantly improved.
Denies shortness of breath ambulated in the room.
Would like to go home.
-
Status post diuresis
Cardiology correspondence reviewed, planning for discharge later today
-
Patient on prednisone for gout on the right index finger. Low-dose.
-
[facility] records reviewed, patient has history of mild COPD. Secondhand smoking exposure. Survivor of the [facility] events. Likely occupational exposure.
Not on inhalers.
Not very symptomatic
Mild airflow obstruction on spirometry
May need to update pulmonary function testing at some point in the outpatient setting.
-
Okay to discharge from the pulmonary perspective.
Advised to make follow-up appointment with Dr. Akbar at some point.
Sign off
Subjective Data
-
Date of Service:
Date of Service: February 21, 2024
Chief Complaint: Pulmonary Follow Up (Respiratory sufficiency)
Subjective:
Feels better.
Ambulated to the restroom without difficulties
Cough significantly improved
Patient ready to go home
Review of Systems
Cardiopulmonary: Dyspnea (Resolved) and Cough (Significantly improved)
Objective Data
Data Reviewed
Vital Signs / I&O / Oxygen:
Vital Signs
Temp Pulse Resp BP Pulse Ox
97.9 F 60 20 98/53 100
02/21/24 07:06 02/21/24 07:08 02/21/24 07:06 02/21/24 07:08 02/21/24 07:06
Intake and Output
02/20/24 02/21/24 02/22/24
06:59 06:59 06:59
Intake Total 1929
Balance 1929
SaO2 100
Nasal Cannula flow liters per 2
minute
Physical Exam
General: Comfortable
HEENT: Normocephalic
Cardiovascular: S1-S2
Respiratory: Clear
GI: Soft
Neurology: Awake, AO x 3 and No Motor Deficits
Labs/Micro/Reports
Lab Data
02/21/24 04:08
02/21/24 04:08
--- NOTE | 2024-02-21 10:45 | W.DS.TRANS ---
DC Summary - Corporate Strategy Intern
-
Discharge Instructions:
Discharge Diagnosis/Procedures AFib, s/p watchman device implant
Diet Low Cholesterol
Driving Restrictions No driving for 24 hours
Others Tests Follow up SHARRI is scheduled for you at [facility] on 05/23/2024. You will receive
instructions from Dr. Martinez's office prior
to your procedure.
Instructions:
Stand-Alone Forms: DC Instructions- Cath/EP Lab
Changes to Home Medications: Yes
Discharge Medications:
DC Medications w/original date entered in [employer]
atorvastatin 20 mg tablet 20 mg PO HS High cholesterol 10/09/14
sotalol 120 mg tablet 120 mg PO Q12H arrhythmia #60 tabs 02/23/22
furosemide 80 mg tablet 120 mg PO DAILY Fluid Retention/Swelling 09/01/23
metoprolol succinate 50 mg tablet,extended release 24 hr 50 mg PO HS Atrial fibrillation 09/01/23
metoprolol succinate 50 mg tablet,extended release 24 hr 75 mg PO DAILY Atrial fibrillation 09/01/23
potassium chloride 20 mEq tablet,extended release(part/cryst) 20 meq PO TID Electrolyte Repletion #0 tabs 10/04/23
Vitamin C 1 tab PO DAILY 01/26/24
Bifidobacterium infantis 4 mg capsule (Align) 4 mg PO DAILY 01/31/24
Vitamin D3 1 cap PO DAILY 01/31/24
acetaminophen 650 mg tablet,extended release 650 mg PO Q12H PRN pain 01/31/24
diphenhydramine 25 mg-acetaminophen 500 mg tablet (Tylenol PM Extra Strength) 1 tab PO HS PRN sleep 01/31/24
multivitamin 1 tab PO DAILY 01/31/24
omeprazole 40 mg capsule,delayed release 40 mg PO DAILY 01/31/24
vitamin E 1 cap PO DAILY 01/31/24
apixaban 2.5 mg tablet (Eliquis) 2.5 mg PO BID #60 tabs 02/20/24
prednisone 10 mg tablet 10 mg PO BID 02/20/24
Home Medication Changes
stop aspirin, new to apixaban
Pending Results: No
[2024-02-21 11:09] VITALS: BP 123/70
--- NOTE | 2024-02-21 12:36 | PTCARENOTE ---
Went over pt's D/C instructions; D/C'd pt's IV line & telemetry pack. Pt D/C'd to home w/belongings including cell phone & cord tire builder. Pt taken out via wheelchair by staff. Pt's driving her home.
== END 2024-02-21 12:40 | disposition home or self-care (01) | DRG 273 ==
LOC: IVU 05:59
PROVIDERS: Internal Medicine Cardiovascular Disease; Nurse Practitioner; ADMITTING PHYSICIAN Internal Medicine Cardiovascular Disease; CONSULT PHYSICIAN Internal Medicine Critical Care Medicine; FAMILY PHYSICIAN Family Medicine
PROC: B24BZZ4 Ultrasonography of Heart with Aorta, Transesophageal (ICD-10-PCS; 2024-02-20)
PROC: 02L73DK Occlusion of Left Atrial Appendage with Intraluminal Device, Percutaneous Approach (ICD-10-PCS; 2024-02-20)
DX: I48.0 Paroxysmal atrial fibrillation (principal); Z00.6 Encounter for examination for normal comparison and control in clinical research program; I50.33 Acute on chronic diastolic (congestive) heart failure; K31.811 Angiodysplasia of stomach and duodenum with bleeding; I13.0 Hypertensive heart and chronic kidney disease with heart failure and stage 1 through stage 4 chronic kidney disease, or unspecified chronic kidney disease; I49.5 Sick sinus syndrome; N18.31 Chronic kidney disease, stage 3a; D50.9 Iron deficiency anemia, unspecified; M81.0 Age-related osteoporosis without current pathological fracture; K21.9 Gastro-esophageal reflux disease without esophagitis; E78.5 Hyperlipidemia, unspecified; I27.20 Pulmonary hypertension, unspecified; I73.00 Raynaud's syndrome without gangrene; J44.9 Chronic obstructive pulmonary disease, unspecified; M10.9 Gout, unspecified; J98.01 Acute bronchospasm; R06.89 Other abnormalities of breathing; R06.03 Acute respiratory distress; R09.02 Hypoxemia; Z95.0 Presence of cardiac pacemaker; Z57.31 Occupational exposure to environmental tobacco smoke; Z86.73 Personal history of transient ischemic attack (TIA), and cerebral infarction without residual deficits; Z79.01 Long term (current) use of anticoagulants; Z79.899 Other long term (current) drug therapy; Z88.8 Allergy status to other drugs, medicaments and biological substances
CPT/HCPCS: 33340; 36415; 71046; 80048; 80053; 85025; 85027; 85347; 85610; 86850; 86900; 86901; 87070; 93005; 93355; 94640; C1769; C1892; C1894; Q9967

== ENCOUNTER 2024-02-28 09:32 | Outpatient (RCR) | payer OTHER, SELFPAY ==
[2024-02-07 09:36] VITALS: BP 132/67
[2024-02-07] MEDS: VENOFER 110 MG IV (10:00)
[2024-02-07] MEDS: TYLENOL 650 MG PO (10:01)
[2024-02-07 11:26] VITALS: BP 111/74
[2024-02-14 09:20] VITALS: BP 130/63
[2024-02-14] MEDS: VENOFER 110 MG IV (09:37)
[2024-02-14 10:42] VITALS: BP 108/77
[2024-02-22 09:30] VITALS: BP 120/67
[2024-02-22] MEDS: VENOFER 110 MG IV (09:43)
[2024-02-22 10:50] VITALS: BP 127/62
[2024-02-28] MEDS: VENOFER 110 MG IV (10:02)
[2024-02-28 10:19] VITALS: BP 112/56
[2024-02-28 11:20] VITALS: BP 128/61
== END 2024-03-04 23:59 | disposition home or self-care (01) ==
LOC: OID 09:32
PROVIDERS: ATTENDING PHYSICIAN Internal Medicine Gastroenterology; FAMILY PHYSICIAN Family Medicine
DX: D50.9 Iron deficiency anemia, unspecified (principal); K31.819 Angiodysplasia of stomach and duodenum without bleeding; Z79.01 Long term (current) use of anticoagulants
CPT/HCPCS: 96365; J1756

== ENCOUNTER 2024-05-15 07:13 | Day surgery (SDC) | payer OTHER, SELFPAY ==
--- NOTE | 2024-05-13 09:07 | HPS.HSE ---
Family Physician
-
Family Physician: NO INTERVIEW UNKNOWN
Chief Complaint
-
Paroxysmal atrial fibrillation.
History of Present Illness
The patient is a 74 year old female with a history of paroxysmal atrial fibrillation who underwent Watchman implantation in February 2024 due to elevated CHADS-VASc and HAS-BLED scores in the setting of GAVE with recurrent GI bleeds and
associated iron deficiency anemia. She remains on Metoprolol Succinate and Sotalol for pharmacological therapy. She has been complaint with Eliquis 2.5 mg twice a day since her Watchman implant. She will need to undergo a 3 month post-procedural
transesophageal echocardiogram to assess the stability of her Watchman device. She denies any current complaints today such as chest pain, shortness of breath at rest, nausea, vomiting, diarrhea, lightheadedness, dizziness, cough, sore throat, or
fever.
Medical History
Past Medical History
Past Medical History: Reports Other
Additional Past Medical History:
1. Paroxysmal atrial fibrillation, status post pulmonary vein isolation, 2010, and Watchman implantation 02/2024; pharmacological therapy with Metoprolol Succinate and Sotalol, oral anticoagulation with Eliquis.
2. Hypertension.
3. Hyperlipidemia.
4. Sick sinus syndrome, status post [employer] pacemaker insertion.
5. Congestive heart failure, preserved ejection fraction.
6. Mild mitral regurgitation.
7. PFO with left to right shunt by echocardiogram 02/2024.
8. COPD with chronic dyspnea on exertion.
9. Chronic kidney disease stage 3.
10. GERD.
11. Diaphragmatic hernia, status post Mary fundoplication.
12. GAVE with associated iron deficiency anemia.
13. Colon polyps.
14. Diverticulosis.
15. Multifocal right hemispheric CVA on Brain MRI 2012.
16. TIA without residual deficits.
17. Degenerative disc disease.
18. Raynaud's without vascular involvement.
19. Skin cancer, status post Mohs.
20. Osteoporosis.
Past Surgical History: Reports Other
Additional Past Surgical History:
1. Watchman implant.
2. Pulmonary vein isolation.
3. [employer] pacemaker insertion.
4. Mary fundoplication.
5. Right foot surgery with hardware.
6. Tonsillectomy.
7. Left lazy eye correction.
8. Mohs.
9. Multiple colonoscopies.
10. Multiple endoscopies.
Social History
Tobacco: Other (She denies prior tobacco use; she does report, however, secondary tobacco exposure. )
Alcohol: Daily
Living: Other (She lives with her significant other Blake in a 2 story home. )
Family History
Family History: Not pertinent
Allergies / Home Medications
Allergy/Medication List:
Home medications:
1. Tylenol arthritis 650 mg p.o. every 4 hours as needed.
2. Align 4 mg p.o. daily.
3. Apixaban 2.5 mg p.o. twice a day.
4. Atorvastatin 20 mg p.o. at bedtime.
5. Tylenol PM 1 tablet p.o. at bedtime as needed.
6. Furosemide 120 mg p.o. daily.
7. Metoprolol Succinate 50 mg p.o. at bedtime.
8. Multivitamin 1 tablet p.o. daily.
9. Omeprazole 40 mg p.o. daily.
10. Potassium chloride 20 mg p.o. three times a day.
11. Sotalol 120 mg p.o. every 12 hours.
12. Vitamin C 1 tablet p.o. daily.
13. Vitamin D3 1 capsule p.o. daily.
14. Vitamin E 1 capsule p.o. daily.
15. Metoprolol Succinate 75 mg p.o. daily.
Allergies: Naproxen and other NSAIDs.
Review of Systems
-
A 12 point ROS was completed and negative except as noted: Yes
Physical Exam
Vital Signs
Blood pressure 128/86. Heart rate 60. Respirations 18. Pulse ox 99% on room air.
Height 5 feet, 2 inches. Weight 56.6 kg. BMI 22.8.
Physical Exam
General: Well Developed, Well Nourished and No Apparent Distress
HEENT: NormoCephalic, Moist mucous membranes and Atraumatic
Respiratory: Clear
Cardiac: Regular Rhythm and Other (Pacemaker site intact. )
GI: Soft, Non Tender and Non Distended
Musculoskeletal: Normal Gait & Station
Skin: Warm and Dry
Neuro: AO x 3 and Nonfocal/grossly intact
Laboratory Results
-
EKG 05/13/2024: AV dual paced rhythm with prolonged AV conduction.
Transesophageal echocardiogram 02/20/2024: Normal left ventricular systolic function. Left ventricular ejection fraction is 55-60%. No Left atrial appendage thrombus. PFO with left to right shunt by color doppler. Post Watchaman implant. No leak
around device. No pericardial effusion.
Impression/Plan
-
IMPRESSION/PLAN:
1. Paroxysmal atrial fibrillation: The patient is in need of post-procedural transesophageal echocardiogram with Dr. Aman Cramer on 05/15/2024. The benefits and risks of the procedure have been explained to the patient. The patient understands
these risks and wishes to proceed. If her Watchman device is well-seated without significant leaks and no device related thrombus she will continue Eliquis 2.5 mg p.o. twice a day for an additional 3 months and then transition from Eliquis to
Aspirin 81 mg p.o. daily.
[2024-05-13 13:36] VITALS: BMI 22.8
== END 2024-05-15 10:05 | disposition home or self-care (01) ==
LOC: CATH 07:13
PROVIDERS: ATTENDING PHYSICIAN Internal Medicine Cardiovascular Disease; FAMILY PHYSICIAN Family Medicine; OTHER PHYSICIAN Internal Medicine Cardiovascular Disease
DX: Z45.09 Encounter for adjustment and management of other cardiac device (principal); I48.0 Paroxysmal atrial fibrillation; I13.0 Hypertensive heart and chronic kidney disease with heart failure and stage 1 through stage 4 chronic kidney disease, or unspecified chronic kidney disease; E78.5 Hyperlipidemia, unspecified; I49.5 Sick sinus syndrome; I34.0 Nonrheumatic mitral (valve) insufficiency; I34.81 Nonrheumatic mitral (valve) annulus calcification; J44.9 Chronic obstructive pulmonary disease, unspecified; Q21.12 Patent foramen ovale; R06.09 Other forms of dyspnea; K21.9 Gastro-esophageal reflux disease without esophagitis; K44.9 Diaphragmatic hernia without obstruction or gangrene; K31.819 Angiodysplasia of stomach and duodenum without bleeding; D50.9 Iron deficiency anemia, unspecified; Z86.0100 Personal history of colon polyps, unspecified; Z86.73 Personal history of transient ischemic attack (TIA), and cerebral infarction without residual deficits; K57.90 Diverticulosis of intestine, part unspecified, without perforation or abscess without bleeding; I73.00 Raynaud's syndrome without gangrene; Z85.828 Personal history of other malignant neoplasm of skin; M81.0 Age-related osteoporosis without current pathological fracture; Z79.899 Other long term (current) drug therapy; Z79.01 Long term (current) use of anticoagulants; Z88.6 Allergy status to analgesic agent; Z95.818 Presence of other cardiac implants and grafts
CPT/HCPCS: 93312; 93320; 93325; 93005

== ENCOUNTER 2024-05-28 08:39 | Outpatient (RCR) | payer OTHER, SELFPAY ==
[2024-05-28 09:32] VITALS: BP 126/53
[2024-05-28 09:50] VITALS: BP 118/71
[2024-05-28 12:08] VITALS: BP 128/82
[2024-05-28] MEDS: LASIX 20 MG IV (12:08)
== END 2024-06-04 23:59 | disposition home or self-care (01) ==
LOC: OID 08:39
PROVIDERS: ATTENDING PHYSICIAN Internal Medicine Hematology & Oncology; FAMILY PHYSICIAN Family Medicine
DX: D50.9 Iron deficiency anemia, unspecified (principal); K31.819 Angiodysplasia of stomach and duodenum without bleeding; N18.30 Chronic kidney disease, stage 3 unspecified; Z79.01 Long term (current) use of anticoagulants; Z95.0 Presence of cardiac pacemaker
CPT/HCPCS: 36415; 36430; 86850; 86900; 86901; 86920; 96374; P9016

== ENCOUNTER 2024-06-10 07:49 | Day surgery (SDC) | payer OTHER, SELFPAY ==
[2024-06-10] VITALS (8 sets, daily range): BP systolic 85–129; BP diastolic 55–94; BMI 23.5
[2024-06-10 09:15] LABS: Hematocrit 28.2 % (37.0-47.0); Hemoglobin 8.7 g/dL (12.0-16.0); Mean Corp Hgb Conc. 30.9 g/dL (33.0-37.0); Mean Corpuscular Volume 97.2 fL (81.0-99.0); Mean Platelet Volume 8.9 fL (7.4-10.4); Platelet Count 232 10^3/uL (130-400); Red Cell Dist. Width 13.5 % (11.5-14.5); White Blood Cell Count 6.9 10^3/uL (4.8-10.8)
[2024-06-10 09:26] LABS: ALT (SGPT) 15 U/L (0-35); AST (SGOT) 33 U/L (14-36); Albumin 3.6 g/dl (3.5-5.0); Alkaline Phosphatase 98 U/L (38-126); Blood Urea Nitrogen 16 mg/dl (7-17); Calcium 8.4 mg/dl (8.4-10.2); Carbon Dioxide 31 mmol/L (22-30); Chloride 97 mmol/L (98-107); Estimated Creatinine Clearance 47 ml/min; Glucose 93 mg/dl (70-99); Potassium 3.2 mmol/L (3.5-5.1); Sodium 135 mmol/L (135-145); Total Bilirubin 0.5 mg/dl (0.2-1.3); Total Protein 6.7 g/dl (6.3-8.2); eGFR > 60.00
--- NOTE | 2024-06-10 09:36 | PTCARENOTE ---
[employer] rep at pt bedside interrogating pt's device.
--- NOTE | 2024-06-10 11:44 | PTCARENOTE ---
Dr Martinez at pt bedside speaking to pt and pt's significant other, Blake.
--- NOTE | 2024-06-10 11:51 | ITS.CL.PACE ---
[facility] - Pacemaker Implant
Pacemaker Implant
Procedure Report:
PACEMAKER GENERATOR CHANGE
Date of Procedure: June 10, 2024
Primary Care Provider: Dr Luly Grant
PROCEDURES:
1. Removal of dual chamber PPM generator at [facility]
2. Implant of new diual chamber PPM generator
INDICATION FOR PROCEDURE:
1. PPM generator [employer] recall with less than 8 months until [facility]
2. Non-reversible symptomatic bradycardia due to sinus node dysfunction.
The patient was prepped and draped in sterile fashion. Lidocaine with epi was used for local anesthesia. An incision was made along the previous incision and the device and leads were carefully dissected from the pocket. Hemostasis was obtained
with electrocautery. The leads were from the device header and tested using an external analyzer. The pocket was liberally irrigated with antibiotic solution. Once testing (see below) showed adequate and stable function, the leads were
connected to the generator header and the leads and generator were placed within the pocket. The pocket was closed in the typical fashion.
EXPLANTED PPM GENERATOR:
[employer]
IMPLANTED PPM GENERATOR:
[employer] model L3 1 1 serial #[id number]
RETAINED LEADS:
Existing RA lead: [employer] model 4469 serial #[id number] implanted August 04, 2015
Existing RV lead: [employer] model 4456 serial #[id number] implanted August 04, 2015
DEVICE TESTING:
Sensing: RA 0.6 mV, RV 11 mV
Capture: RA 0.7 V @ 0.4ms, RV 0.9 V @ 0.4ms
Ohms: RA 321, RV 432
FINAL PROGRAMMING
Pablo Pacing: DDDR (Rhythm IQ) 60-120 ppm
COMPLICATIONS:
None
CONCLUSIONS:
1. Successful explant of dual chamber permanent pacemaker
2. Successful implant of dual chamber permanent pacemaker
RECOMMENDATIONS:
1. In-Office wound check in 7-10 days.
== END 2024-06-10 12:27 | disposition home or self-care (01) ==
LOC: CATH 07:49
PROVIDERS: ATTENDING PHYSICIAN Internal Medicine Cardiovascular Disease; FAMILY PHYSICIAN Family Medicine
DX: Z45.010 Encounter for checking and testing of cardiac pacemaker pulse generator [battery] (principal); I49.5 Sick sinus syndrome; Z79.01 Long term (current) use of anticoagulants; Z79.899 Other long term (current) drug therapy; D50.9 Iron deficiency anemia, unspecified; I50.9 Heart failure, unspecified; Z86.73 Personal history of transient ischemic attack (TIA), and cerebral infarction without residual deficits; Z88.6 Allergy status to analgesic agent
CPT/HCPCS: 33228; 80053; 85027; C1785

== ENCOUNTER → 2024-06-18 11:41 | Outpatient (REF) | payer OTHER, SELFPAY | LOC: HWRAD 11:41 | PROVIDERS: ATTENDING PHYSICIAN Internal Medicine Critical Care Medicine; FAMILY PHYSICIAN Family Medicine | DX: R93.89 Abnormal findings on diagnostic imaging of other specified body structures (principal) | CPT/HCPCS: 71250 ==

== ENCOUNTER → 2024-06-21 16:25 | Outpatient (REF) | payer OTHER, SELFPAY ==
[2024-06-21 11:51] LABS: % Basophils 0.9 % (0-2); % Eosinophils 2.1 % (0-6); % Immature Granulocytes 0.2 % (0-0.5); % Lymphocytes 12.6 % (20.5-51.1); % Monocytes 6.9 % (1.7-9.3); % Neutrophils 77.3 % (42.2-75.2); Absolute Basophils 0.1 10^3/uL (0-0.2); Absolute Eosinophils 0.1 10^3/uL (0-0.7); Absolute Lymphocytes 0.8 10^3/uL (1.2-3.4); Absolute Monocytes 0.5 10^3/uL (0.1-0.6); Hematocrit 26.6 % (37.0-47.0); Mean Corp Hgb Conc. 30.5 g/dL (33.0-37.0); Mean Corpuscular Volume 98.5 fL (81.0-99.0); Mean Platelet Volume 8.6 fL (7.4-10.4); Platelet Count 221 10^3/uL (130-400); Red Cell Dist. Width 15.4 % (11.5-14.5); White Blood Cell Count 6.5 10^3/uL (4.8-10.8)
[2024-06-21 11:54] LABS: Hemoglobin 8.1 g/dL (12.0-16.0)
== END ==
LOC: OIDL 16:25
PROVIDERS: ATTENDING PHYSICIAN Internal Medicine Hematology & Oncology
DX: D50.9 Iron deficiency anemia, unspecified (principal)
CPT/HCPCS: 85025

== ENCOUNTER → 2024-06-26 10:45 | Outpatient (REF) | payer OTHER, SELFPAY | LOC: WDC 10:45 | PROVIDERS: ATTENDING PHYSICIAN Family Medicine | DX: Z12.31 Encounter for screening mammogram for malignant neoplasm of breast (principal) | CPT/HCPCS: 77063; 77067 ==

== ENCOUNTER → 2024-06-28 08:41 | Outpatient (REF) | payer OTHER, SELFPAY ==
[2024-06-28 09:21] LABS: % Basophils 0.6 % (0-2); % Eosinophils 3.1 % (0-6); % Immature Granulocytes 0.3 % (0-0.5); % Lymphocytes 12.2 % (20.5-51.1); % Monocytes 8.6 % (1.7-9.3); % Neutrophils 75.2 % (42.2-75.2); Absolute Eosinophils 0.2 10^3/uL (0-0.7); Absolute Lymphocytes 0.8 10^3/uL (1.2-3.4); Absolute Monocytes 0.6 10^3/uL (0.1-0.6); Absolute Neutrophils 4.9 10^3/uL (1.4-6.5); Hematocrit 25.6 % (37.0-47.0); Hemoglobin 7.8 g/dL (12.0-16.0); Mean Corp Hgb Conc. 30.5 g/dL (33.0-37.0); Mean Corpuscular Hgb 30.2 pg (27.0-31.0); Mean Corpuscular Volume 99.2 fL (81.0-99.0); Mean Platelet Volume 9.3 fL (7.4-10.4); Nucleated Red Blood Cells % 0 %; Platelet Count 162 10^3/uL (130-400); Red Blood Cell Count 2.58 10^6/uL (4.20-5.40); Red Cell Dist. Width 17.4 % (11.5-14.5); White Blood Cell Count 6.5 10^3/uL (4.8-10.8)
[2024-06-28 09:28] LABS: PT 16.5 Sec (11.4-14.6)
[2024-06-28 09:35] VITALS: BP 126/65; BP_SYST 60
[2024-06-28] MEDS: ATIVAN 0.5 MG IV (10:15)
[2024-06-28] MEDS: NSS (PRESERVATIVE FREE) 0.25 ML IV (10:15)
[2024-06-28 11:45] VITALS: BP 146/83
== END ==
LOC: RADI 08:41
PROVIDERS: ATTENDING PHYSICIAN Internal Medicine Hematology & Oncology; FAMILY PHYSICIAN Family Medicine; REFERRING PHYSICIAN Physician Assistant
DX: D50.9 Iron deficiency anemia, unspecified (principal)
CPT/HCPCS: 88305; 88311; 88312; 36415; 38222; 77012; 85025; 85610; 88313; 99152

== ENCOUNTER → 2024-06-28 16:18 | Outpatient (REF) | payer OTHER, SELFPAY ==
[2024-06-28 15:05] LABS: % Basophils 0.7 % (0-2); % Immature Granulocytes 0.2 % (0-0.5); % Lymphocytes 11.6 % (20.5-51.1); % Monocytes 9.1 % (1.7-9.3); % Neutrophils 76.4 % (42.2-75.2); Absolute Eosinophils 0.1 10^3/uL (0-0.7); Absolute Lymphocytes 0.7 10^3/uL (1.2-3.4); Absolute Monocytes 0.5 10^3/uL (0.1-0.6); Absolute Neutrophils 4.5 10^3/uL (1.4-6.5); Hematocrit 28.4 % (37.0-47.0); Hemoglobin 8.6 g/dL (12.0-16.0); Mean Corp Hgb Conc. 30.3 g/dL (33.0-37.0); Mean Corpuscular Hgb 30.8 pg (27.0-31.0); Mean Corpuscular Volume 101.8 fL (81.0-99.0); Mean Platelet Volume 9.1 fL (7.4-10.4); Platelet Count 167 10^3/uL (130-400); Red Blood Cell Count 2.79 10^6/uL (4.20-5.40); Red Cell Dist. Width 17.3 % (11.5-14.5); White Blood Cell Count 5.9 10^3/uL (4.8-10.8)
== END ==
LOC: OIDL 16:18
PROVIDERS: ATTENDING PHYSICIAN Internal Medicine Hematology & Oncology
DX: D50.9 Iron deficiency anemia, unspecified (principal)
CPT/HCPCS: 85025

== ENCOUNTER → 2024-07-05 13:28 | Outpatient (REF) | payer OTHER, SELFPAY ==
[2024-07-05 11:17] LABS: % Basophils 0.7 % (0-2); % Eosinophils 3.1 % (0-6); % Immature Granulocytes 0.2 % (0-0.5); % Lymphocytes 12.8 % (20.5-51.1); % Monocytes 9.2 % (1.7-9.3); Absolute Eosinophils 0.2 10^3/uL (0-0.7); Absolute Lymphocytes 0.8 10^3/uL (1.2-3.4); Absolute Monocytes 0.6 10^3/uL (0.1-0.6); Absolute Neutrophils 4.5 10^3/uL (1.4-6.5); Hemoglobin 8.1 g/dL (12.0-16.0); Mean Corp Hgb Conc. 31.2 g/dL (33.0-37.0); Mean Corpuscular Hgb 31.5 pg (27.0-31.0); Mean Corpuscular Volume 101.2 fL (81.0-99.0); Mean Platelet Volume 9.2 fL (7.4-10.4); Platelet Count 190 10^3/uL (130-400); Red Blood Cell Count 2.57 10^6/uL (4.20-5.40); Red Cell Dist. Width 18.3 % (11.5-14.5); White Blood Cell Count 6.1 10^3/uL (4.8-10.8)
== END ==
LOC: OIDL 13:28
PROVIDERS: ATTENDING PHYSICIAN Internal Medicine Hematology & Oncology
DX: D50.9 Iron deficiency anemia, unspecified (principal)
CPT/HCPCS: 85025

== ENCOUNTER → 2024-07-12 15:26 | Outpatient (REF) | payer OTHER, SELFPAY ==
[2024-07-12 15:42] LABS: % Basophils 0.7 % (0-2); % Eosinophils 4.1 % (0-6); % Immature Granulocytes 0.3 % (0-0.5); % Lymphocytes 14.5 % (20.5-51.1); % Monocytes 8.3 % (1.7-9.3); % Neutrophils 72.1 % (42.2-75.2); Absolute Eosinophils 0.2 10^3/uL (0-0.7); Absolute Lymphocytes 0.9 10^3/uL (1.2-3.4); Absolute Monocytes 0.5 10^3/uL (0.1-0.6); Absolute Neutrophils 4.3 10^3/uL (1.4-6.5); Hematocrit 25.2 % (37.0-47.0); Hemoglobin 7.7 g/dL (12.0-16.0); Mean Corp Hgb Conc. 30.6 g/dL (33.0-37.0); Mean Corpuscular Hgb 32.5 pg (27.0-31.0); Mean Corpuscular Volume 106.3 fL (81.0-99.0); Mean Platelet Volume 8.5 fL (7.4-10.4); Platelet Count 158 10^3/uL (130-400); Red Blood Cell Count 2.37 10^6/uL (4.20-5.40); White Blood Cell Count 5.9 10^3/uL (4.8-10.8)
== END ==
LOC: OIDL 15:26
PROVIDERS: ATTENDING PHYSICIAN Internal Medicine Hematology & Oncology
DX: D50.9 Iron deficiency anemia, unspecified (principal)
CPT/HCPCS: 85025

== ENCOUNTER 2024-07-15 07:34 | Outpatient (RCR) | payer OTHER, SELFPAY ==
[2024-07-15 08:25] VITALS: BP 110/57
[2024-07-15 08:42] VITALS: BP 114/61
[2024-07-15 10:45] VITALS: BP 109/62
[2024-07-15] MEDS: LASIX 20 MG IV (10:51)
== END 2024-08-02 23:59 | disposition home or self-care (01) ==
LOC: OID 07:34
PROVIDERS: ATTENDING PHYSICIAN Internal Medicine Hematology & Oncology; FAMILY PHYSICIAN Family Medicine
DX: D50.9 Iron deficiency anemia, unspecified (principal); K31.819 Angiodysplasia of stomach and duodenum without bleeding; Z79.01 Long term (current) use of anticoagulants; N18.30 Chronic kidney disease, stage 3 unspecified; Z95.0 Presence of cardiac pacemaker
CPT/HCPCS: 36430; 86850; 86900; 86901; 86920; 96374; P9016

== ENCOUNTER → 2024-09-16 11:17 | Outpatient (REF) | payer OTHER, SELFPAY ==
[2024-09-16 11:29] LABS: % Immature Granulocytes 0.2 % (0-0.5); % Lymphocytes 13.5 % (20.5-51.1); % Neutrophils 70.3 % (42.2-75.2); Absolute Basophils 0.1 10^3/uL (0-0.2); Absolute Eosinophils 0.2 10^3/uL (0-0.7); Absolute Lymphocytes 0.7 10^3/uL (1.2-3.4); Absolute Monocytes 0.5 10^3/uL (0.1-0.6); Absolute Neutrophils 3.4 10^3/uL (1.4-6.5); Hematocrit 27.9 % (37.0-47.0); Hemoglobin 8.6 g/dL (12.0-16.0); Mean Corp Hgb Conc. 30.8 g/dL (33.0-37.0); Mean Corpuscular Hgb 28.7 pg (27.0-31.0); Mean Platelet Volume 9.2 fL (7.4-10.4); Platelet Count 210 10^3/uL (130-400); Red Cell Dist. Width 16.3 % (11.5-14.5); White Blood Cell Count 4.8 10^3/uL (4.8-10.8)
== END ==
LOC: OIDL 11:17
PROVIDERS: ATTENDING PHYSICIAN Registered Nurse
DX: D50.9 Iron deficiency anemia, unspecified (principal)
CPT/HCPCS: 85025

== ENCOUNTER → 2024-09-19 15:23 | Outpatient (REF) | payer OTHER, SELFPAY ==
[2024-09-19 15:14] LABS: % Basophils 0.7 % (0-2); % Eosinophils 2.4 % (0-6); % Immature Granulocytes 0.1 % (0-0.5); % Lymphocytes 10.6 % (20.5-51.1); % Monocytes 7.9 % (1.7-9.3); % Neutrophils 78.3 % (42.2-75.2); Absolute Basophils 0.1 10^3/uL (0-0.2); Absolute Eosinophils 0.2 10^3/uL (0-0.7); Absolute Monocytes 0.7 10^3/uL (0.1-0.6); Absolute Neutrophils 7.3 10^3/uL (1.4-6.5); Hematocrit 28.6 % (37.0-47.0); Hemoglobin 8.8 g/dL (12.0-16.0); Mean Corp Hgb Conc. 30.8 g/dL (33.0-37.0); Mean Corpuscular Hgb 28.6 pg (27.0-31.0); Mean Corpuscular Volume 92.9 fL (81.0-99.0); Platelet Count 205 10^3/uL (130-400); Red Blood Cell Count 3.08 10^6/uL (4.20-5.40); Red Cell Dist. Width 16.8 % (11.5-14.5); White Blood Cell Count 9.4 10^3/uL (4.8-10.8)
== END ==
LOC: OIDL 15:23
PROVIDERS: ATTENDING PHYSICIAN Internal Medicine Hematology & Oncology
DX: D50.9 Iron deficiency anemia, unspecified (principal); C94.6 Myelodysplastic disease, not elsewhere classified
CPT/HCPCS: 85025

== ENCOUNTER 2024-09-25 14:55 | Outpatient (RCR) | payer OTHER, SELFPAY ==
[2024-09-25 14:24] LABS: % Basophils 0.6 % (0-2); % Eosinophils 2.6 % (0-6); % Immature Granulocytes 0.3 % (0-0.5); % Lymphocytes 10.1 % (20.5-51.1); % Monocytes 7.8 % (1.7-9.3); % Neutrophils 78.6 % (42.2-75.2); Absolute Basophils 0.1 10^3/uL (0-0.2); Absolute Eosinophils 0.2 10^3/uL (0-0.7); Absolute Lymphocytes 0.8 10^3/uL (1.2-3.4); Absolute Monocytes 0.6 10^3/uL (0.1-0.6); Absolute Neutrophils 6.2 10^3/uL (1.4-6.5); Hematocrit 28.4 % (37.0-47.0); Hemoglobin 8.7 g/dL (12.0-16.0); Mean Corp Hgb Conc. 30.6 g/dL (33.0-37.0); Mean Corpuscular Hgb 29.1 pg (27.0-31.0); Mean Platelet Volume 8.9 fL (7.4-10.4); Platelet Count 168 10^3/uL (130-400); Red Blood Cell Count 2.99 10^6/uL (4.20-5.40); Red Cell Dist. Width 18.8 % (11.5-14.5); White Blood Cell Count 7.9 10^3/uL (4.8-10.8)
[2024-09-30 14:14] LABS: % Basophils 0.8 % (0-2); % Eosinophils 2.2 % (0-6); % Immature Granulocytes 0.3 % (0-0.5); % Lymphocytes 10.7 % (20.5-51.1); % Monocytes 9.4 % (1.7-9.3); % Neutrophils 76.6 % (42.2-75.2); Absolute Basophils 0.1 10^3/uL (0-0.2); Absolute Eosinophils 0.2 10^3/uL (0-0.7); Absolute Lymphocytes 0.8 10^3/uL (1.2-3.4); Absolute Monocytes 0.7 10^3/uL (0.1-0.6); Absolute Neutrophils 5.9 10^3/uL (1.4-6.5); Hematocrit 31.8 % (37.0-47.0); Hemoglobin 9.6 g/dL (12.0-16.0); Mean Corp Hgb Conc. 30.2 g/dL (33.0-37.0); Mean Corpuscular Hgb 29.7 pg (27.0-31.0); Mean Corpuscular Volume 98.5 fL (81.0-99.0); Mean Platelet Volume 9.1 fL (7.4-10.4); Platelet Count 202 10^3/uL (130-400); Red Blood Cell Count 3.23 10^6/uL (4.20-5.40); Red Cell Dist. Width 20.8 % (11.5-14.5); White Blood Cell Count 7.7 10^3/uL (4.8-10.8)
== END 2024-10-02 23:59 | disposition home or self-care (01) ==
LOC: OID 14:55
PROVIDERS: ATTENDING PHYSICIAN Internal Medicine Hematology & Oncology; FAMILY PHYSICIAN Family Medicine
DX: D50.9 Iron deficiency anemia, unspecified (principal); K31.819 Angiodysplasia of stomach and duodenum without bleeding; N18.30 Chronic kidney disease, stage 3 unspecified; Z79.01 Long term (current) use of anticoagulants; Z95.0 Presence of cardiac pacemaker
CPT/HCPCS: 82728; 85025

== ENCOUNTER 2024-11-06 16:10 | Outpatient (RCR) | payer OTHER, SELFPAY ==
[2024-11-06 13:37] LABS: % Basophils 0.7 % (0-2); % Eosinophils 2.3 % (0-6); % Immature Granulocytes 0.1 % (0-0.5); % Lymphocytes 9.3 % (20.5-51.1); % Monocytes 8.7 % (1.7-9.3); % Neutrophils 78.9 % (42.2-75.2); Absolute Basophils 0.1 10^3/uL (0-0.2); Absolute Eosinophils 0.2 10^3/uL (0-0.7); Absolute Lymphocytes 0.8 10^3/uL (1.2-3.4); Absolute Monocytes 0.7 10^3/uL (0.1-0.6); Absolute Neutrophils 6.5 10^3/uL (1.4-6.5); Hematocrit 34.7 % (37.0-47.0); Hemoglobin 10.8 g/dL (12.0-16.0); Mean Corp Hgb Conc. 31.1 g/dL (33.0-37.0); Mean Corpuscular Hgb 29.5 pg (27.0-31.0); Mean Corpuscular Volume 94.8 fL (81.0-99.0); Mean Platelet Volume 8.9 fL (7.4-10.4); Platelet Count 181 10^3/uL (130-400); Red Blood Cell Count 3.66 10^6/uL (4.20-5.40); White Blood Cell Count 8.3 10^3/uL (4.8-10.8)
== END 2024-12-02 23:59 | disposition home or self-care (01) ==
LOC: OID 16:10
PROVIDERS: ATTENDING PHYSICIAN Internal Medicine Hematology & Oncology; FAMILY PHYSICIAN Family Medicine
DX: D50.9 Iron deficiency anemia, unspecified (principal); K31.819 Angiodysplasia of stomach and duodenum without bleeding; Z79.01 Long term (current) use of anticoagulants; Z95.0 Presence of cardiac pacemaker; N18.30 Chronic kidney disease, stage 3 unspecified
CPT/HCPCS: 85025

== ENCOUNTER → 2024-12-16 16:14 | Outpatient (REF) | payer OTHER, SELFPAY ==
[2024-12-16 11:54] LABS: Hematocrit 36.3 % (37.0-47.0); Hemoglobin 11.1 g/dL (12.0-16.0); Mean Corp Hgb Conc. 30.6 g/dL (33.0-37.0); Mean Corpuscular Volume 100.3 fL (81.0-99.0); Platelet Count 163 10^3/uL (130-400); Red Cell Dist. Width 19.2 % (11.5-14.5)
== END ==
LOC: OIDL 16:14
PROVIDERS: ATTENDING PHYSICIAN Nurse Practitioner Primary Care
DX: D50.9 Iron deficiency anemia, unspecified (principal); C94.6 Myelodysplastic disease, not elsewhere classified; D52.9 Folate deficiency anemia, unspecified
CPT/HCPCS: 85025

== ENCOUNTER → 2025-02-04 15:28 | Outpatient (REF) | payer OTHER, SELFPAY ==
[2025-02-04 14:14] LABS: Hematocrit 28.4 % (37.0-47.0); Hemoglobin 8.9 g/dL (12.0-16.0); Mean Corp Hgb Conc. 31.3 g/dL (33.0-37.0); Mean Corpuscular Volume 104.8 fL (81.0-99.0); Platelet Count 176 10^3/uL (130-400); Red Cell Dist. Width 16.3 % (11.5-14.5)
== END ==
LOC: OIDL 15:28
PROVIDERS: ATTENDING PHYSICIAN Internal Medicine Hematology & Oncology
DX: D50.9 Iron deficiency anemia, unspecified (principal); C94.6 Myelodysplastic disease, not elsewhere classified; D52.9 Folate deficiency anemia, unspecified
CPT/HCPCS: 85025

== ENCOUNTER → 2025-02-11 15:50 | Outpatient (REF) | payer OTHER, SELFPAY ==
[2025-02-11 14:54] LABS: Hematocrit 30.8 % (37.0-47.0); Hemoglobin 9.4 g/dL (12.0-16.0); Mean Corp Hgb Conc. 30.5 g/dL (33.0-37.0); Mean Corpuscular Volume 108.1 fL (81.0-99.0); Platelet Count 168 10^3/uL (130-400); Red Cell Dist. Width 17.1 % (11.5-14.5)
== END ==
LOC: OIDL 15:50
PROVIDERS: ATTENDING PHYSICIAN Registered Nurse
DX: D50.9 Iron deficiency anemia, unspecified (principal); C94.6 Myelodysplastic disease, not elsewhere classified; D52.9 Folate deficiency anemia, unspecified
CPT/HCPCS: 85025

== ENCOUNTER 2025-04-03 09:17 | Outpatient (RCR) | payer OTHER, SELFPAY ==
[2025-04-03 09:55] VITALS: BP 100/48
[2025-04-03 10:12] VITALS: BP 99/48
[2025-04-03 12:41] VITALS: BP 98/53
== END 2025-04-04 23:59 | disposition home or self-care (01) ==
LOC: OID 09:17
PROVIDERS: ATTENDING PHYSICIAN Internal Medicine Hematology & Oncology; FAMILY PHYSICIAN Family Medicine
DX: D50.9 Iron deficiency anemia, unspecified (principal); K31.819 Angiodysplasia of stomach and duodenum without bleeding; Z79.01 Long term (current) use of anticoagulants; N18.30 Chronic kidney disease, stage 3 unspecified; Z95.0 Presence of cardiac pacemaker
CPT/HCPCS: 36430; 86850; 86900; 86901; 86920; P9016

== ENCOUNTER 2025-05-02 08:33 | Outpatient (RCR) | payer OTHER, SELFPAY ==
[2025-05-02 09:10] VITALS: BP 105/53
[2025-05-02 09:27] VITALS: BP 103/65
--- NOTE | 2025-05-02 12:00 | PTCARENOTE ---
20MG LASIX IV ORDERED POST ONE UNIT PRBC. PATIENT STATES SHE ALREADY TOOK HER 80MG BY MOUTH BEFORE ARRIVING TO OID. PER DR. CALLEJAS HOLD LASIX IV POST TRANSFUSION IF ASSYMTOMATIC. POST VS BP 98/55, HR62. PATIENT DENIES SOB, LUNGS CLEAR, NO
EDEMA PRESENT. REVIEWED SIGNS AND SYMTOMS TO REPORT. PATIENT VERBALIZED UNDERSTANDING.
[2025-05-02 12:04] VITALS: BP 98/55
== END 2025-05-04 23:59 | disposition home or self-care (01) ==
LOC: OID 08:33
PROVIDERS: ATTENDING PHYSICIAN Internal Medicine Hematology & Oncology; FAMILY PHYSICIAN Family Medicine
DX: D50.9 Iron deficiency anemia, unspecified (principal); K31.819 Angiodysplasia of stomach and duodenum without bleeding; Z79.01 Long term (current) use of anticoagulants; N18.30 Chronic kidney disease, stage 3 unspecified; Z95.0 Presence of cardiac pacemaker
CPT/HCPCS: 36415; 36430; 86850; 86900; 86901; 86920; P9016

== ENCOUNTER 2025-06-04 11:03 | Emergency (ER) | payer OTHER, SELFPAY ==
[2025-06-04] VITALS (8 sets, daily range): BP systolic 110–122; BP diastolic 54–65; BMI 22.0
[2025-06-04 12:00] LABS: Hematocrit 24.9 % (37.0-47.0); Hemoglobin 7.5 g/dL (12.0-16.0); Mean Corp Hgb Conc. 30.1 g/dL (33.0-37.0); Mean Corpuscular Volume 106.9 fL (81.0-99.0); Nucleated Red Blood Cells % 0 %; Platelet Count 168 10^3/uL (130-400); Red Cell Dist. Width 19.3 % (11.5-14.5)
[2025-06-04 12:38] LABS: ALT (SGPT) 19 U/L (0-35); AST (SGOT) 33 U/L (14-36); Albumin 3.4 g/dl (3.5-5.0); Alkaline Phosphatase 88 U/L (38-126); Blood Urea Nitrogen 21 mg/dl (7-17); Calcium 8.5 mg/dl (8.4-10.2); Carbon Dioxide 26 mmol/L (22-30); Chloride 106 mmol/L (98-107); Glucose 103 mg/dl (70-99); Potassium 3.7 mmol/L (3.5-5.1); Sodium 136 mmol/L (135-145); Total Protein 6.3 g/dl (6.3-8.2); eGFR > 60.00
--- NOTE | 2025-06-04 16:35 | ED.GENMED ---
History of Present Illness
General
Chief Complaint: Abnormal Lab Value
Source: patient
Exam Limitations: none
Time Seen by Provider: 06/04/25 16:14
History of Present Illness
History of Present Illness:
75yoF with a history of CHF, atrial fibrillation, and chronic anemia with frequent blood transfusions presenting for evaluation of an abnormal outpatient lab. Patient follows with [facility] (Dr. Michael) for chronic anemia. She states that they have
been 'trying to figure it out for 2 years' why she has anemia. She has had numerous testing including endoscopy, colonoscopy, stool studies, and bone marrow biopsies. She is currently receiving outpatient iron infusions and Acerna injections. She
had outpatient blood work 2 days ago and was found to have a hemoglobin of 7.5. They attempted to arrange for outpatient transfusion but there were no appointments available this week in the infusion center and she was referred to the ED for
transfusion. She is symptomatic with fatigue and exertional dyspnea. She denies any hematochezia, melena, dizziness, syncope.
Past History
Past History
ED Past Medical History: Arrthythmia, GERD and Other (anemia)
ED Past Surgical History: Appendectomy and Cardiac
Social History
Tobacco: Non-smoker
Alcohol: Daily
Personal: Single
Living: with family
Employment: Employed
Phy Exam
General Physical Exam
General Presentation: well appearing and no apparent distress
General Skin: warm and dry
General Habitus: normal and elderly
General Mental: alert
ENT Exam
ENT Exam: normocephalic
Cardiovascular Exam
Cardiovascular Exam: regular rate/rhythm
Pulmonary Exam
Pulmonary Exam: lungs clear, no respiratory distress, no rales, no crackles, no rhonchi and no wheezing
Neurological Exam
Neurological Exam: alert
[place] Coma Scale
Eye Opening: Spontaneous
Verbal Response: Oriented
Motor Response: Obeys Commands
GCS Total Score: 15
Skin Exam
Skin Exam: normal color and warm/dry
Psychiatric Exam
Psychiatric Exam: normal mood/affect
Course
Orders/Labs/Results
Orders:
Orders
06/04/25 11:49
Type+Screen Urgent
Complete Blood Count/With Diff Urgent
Comprehensive Metabolic Panel Urgent
06/04/25 16:34
Blood Bank Products [* Blood Bank Products] Urgent
Blood Bank Products: *Packed RBC Leuko (PRBC's
Quantity: 1
Transfuse Today: Yes
Reason: Anemia
Abnormal Lab Results
06/04/25
11:49
RBC 2.33 L 10^6/uL
(4.20-5.40)
Hgb 7.5 L g/dL
(12.0-16.0)
Hct 24.9 L %
(37.0-47.0)
MCV 106.9 H fL
(81.0-99.0)
MCH 32.2 H pg
(27.0-31.0)
MCHC 30.1 L g/dL
(33.0-37.0)
RDW 19.3 H %
(11.5-14.5)
Absolute Lymphs (auto) 0.7 L 10^3/uL
(1.2-3.4)
Neutrophils % 80.9 H %
(42.2-75.2)
Lymphocytes % 9.3 L %
(20.5-51.1)
BUN 21 H mg/dl
(7-17)
Glucose 103 H mg/dl
(70-99)
Albumin 3.4 L g/dl
(3.5-5.0)
Crossmatch IS Only See Detail
06/04/25 11:49
06/04/25 11:49
Vital Signs
Initial and Last Documented VS:
Initial Vital Signs
Temp Pulse Resp BP Pulse Ox
98.2 F 69 18 122/57 98
06/04/25 11:41 06/04/25 11:41 06/04/25 11:41 06/04/25 11:41 06/04/25 11:41
Last Documented Vital Signs
Temp Pulse Resp BP Pulse Ox
98.3 F 61 16 121/60 92
06/04/25 19:33 06/04/25 19:33 06/04/25 19:33 06/04/25 19:33 06/04/25 18:45
MDM/Problems Addressed
Differential Diagnosis Includes:
75yoF presenting for a blood transfusion after outpatient blood work 2 days ago showed a hemoglobin of 7.5. Hx of chronic anemia with frequent transfusions. Denies any active rectal bleeding and declines rectal exam. VSS. Patient well appearing in
no distress. Differential diagnosis includes: chronic blood loss anemia, iron deficiency anemia, anemia of chronic disease
Initial ED plan: Labs obtained in triage and hemoglobin remains 7.5. Consent obtained and 1 unit PRBCs ordered for transfusion.
*Pulse Oximetry
SaO2: 98
Patient hypoxic: no
*Critical Care Note
Total Time (30-74mins, 75-104mins- exclusive of procedures): Not Applicable
Update Note
Update Note:
Patient tolerated transfusion well. She was reassessed multiple times and remains asymptomatic. She clearly states this is a chronic issue for her, denies any active bleeding, and states she is only here because the infusion center was unable to
accommodate her transfusion this week. No indication for hospitalization. She was advised to follow-up closely with her behavioral health tech. ED return precautions reviewed and she was discharged in stable condition.
ED Attending Note
-
Portions of this chart may have been created with voice recognition software.� Occasional wrong word or��sound alike� substitutions may have occurred due to the inherent limitations of voice recognition software.
Discharge Plan
Departure
Patient Disposition: Home (Routine Discharge)
Date of Disposition: 06/04/25
Time of Disposition: 19:28
Patient with high blood pressure during this ER visit?: No
Discharge Problem:
Acute on chronic anemia
Instructions: Anemia in adults, possibly from low iron - ED (DC)
Prescriptions:
No Action
atorvastatin 20 MG tablet
20 mg PO HS
metoprolol succinate 50 mg Tablet Extended Release 24 Hr
75 mg PO DAILY
furosemide 80 mg Tablet
80 mg PO DAILY
metoprolol succinate 50 mg tablet extended release 24 hr
50 mg PO HS
multivitamin Tablet
1 tab PO DAILY
omeprazole 40 mg Capsule,Delayed Release(Dr/Ec)
40 mg PO DAILY
diphenhydramine-acetaminophen [Tylenol PM Extra Strength] 25-500 mg Tablet
1 tab PO HS PRN (Reason: sleep)
Align (B.infantis) 4 mg Capsule
4 mg PO HS
Vitamin D3
1 cap PO DAILY
vitamin E capsule
1 cap PO DAILY
Vitamin C
1 tab PO DAILYPRN PRN (Reason: supplement)
acetaminophen 650 mg Tablet Extended Release
650 mg PO Q8HPRN PRN (Reason: pain)
potassium chloride 20 mEq Tablet Extended Release
20 meq PO TID
Patient Comments:
Pt states she doesn't always take it 3 times daily and she cuts it up.
sotalol 120 mg tablet
120 mg PO BID
psyllium husk [Fiber (psyllium husk)] 0.4 gram Capsule
0.4 g PO DAILY
fluticasone furoate-vilanterol [Breo Ellipta] 100-25 mcg/dose Blister With Device
1 inh INHALATION DAILY
folic acid 1 mg Tablet
1 mg PO DAILY
B12 5,000-100 mcg Lozenge
1 roseann SUBLINGUAL DAILY
Referrals:
Luly Mckeon MD [Family Provider, Family Practice]
Activity Restrictions/Additional Instructions:
Please follow-up with your behavioral health tech. Return to the ER with any new or worsening symptoms.
Interventions
Interventions:
*General Assessment Last Done: 06/04/25 16:50
*Neglect/Abuse Screening Last Done: 06/04/25 16:50
*ED COVID-19 Vaccine History Last Done: 06/04/25 16:50
*ED Influenza Vaccine History Last Done: 06/04/25 16:50
[facility] Fall Risk Assessment Tool Last Done: 06/04/25 16:50
*Risk Screen - Suicide (C-SSRS) Last Done: 06/04/25 16:50
*Nursing Disposition Last Done: 06/04/25 19:55
Discharge Date and Time
Discharge Date/Time: 06/04/25 19:40
Print Language: INDONESIAN
== END 2025-06-04 19:40 | disposition home or self-care (01) ==
LOC: EMR 11:03
PROVIDERS: Student in an Organized Health Care Education/Training Program; EMERGENCY PHYSICIAN Emergency Medicine; FAMILY PHYSICIAN Family Medicine
DX: D64.9 Anemia, unspecified (principal); I48.91 Unspecified atrial fibrillation; I50.9 Heart failure, unspecified; Z90.49 Acquired absence of other specified parts of digestive tract
CPT/HCPCS: 36430; 99285; 80053; 85025; 86850; 86900; 86901; 86920; P9016